=== PATIENT | male | born 1955 | race Caucasian/White ===

== ENCOUNTER 2017-02-26 10:35 | Emergency (ER) | payer OTHER ==
[2017-02-26 10:41] VITALS: TEMP 97.8
--- NOTE | 2017-02-26 11:18 | CT ---
EXAMINATION TYPE: CT brain wo con for TPA DATE OF EXAM: 02/26/2017 11:14 AM COMPARISON: NONE HISTORY: Right sided facial drooping CT DLP: 961.[address] of the brain was performed. The ventricles, basal cisterns and sulci overlying the cerebral convexities demonstrate mild enlargem ent. There is no evidence for intracranial hemorrhage or sulcal effacement. There is decreased attenuation about the periventricular white matter and deep white matter of both c erebral hemispheres, compatible with chronic small vessel ischemia. Differential diagnosis does inclu de demyelination. No mass effects are seen.No midline shift. Osseous calvarium is intact. If symptoms persist consider MRI. IMPRESSION: 1. Age related atrophic and chronic small vessel ischemic change without acute intracranial process s een at this time.
--- NOTE | 2017-02-26 11:34 | XR ---
EXAMINATION TYPE: XR chest 2V DATE OF EXAM: 02/26/2017 11:20 AM COMPARISON: 10/02/2013 HISTORY: Shortness of breath TECHNIQUE: Frontal and lateral views of the chest are obtained. FINDINGS: Scattered senescent parenchymal changes noted. Hyperinflation compatible with COPD. No evidence for infiltrate. No evidence for atelectasis. Heart size is stable. Mediastinal structures are stable and grossly unremarkable. No evidence for hilar prominence. Degenerative changes dorsal spine. IMPRESSION: 1. No evidence for acute pulmonary disease.
--- NOTE | 2017-02-26 11:37 | ED ---
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 He denies any new weakness was upper or lower extremities denies any headache blurry vision nausea vomiting or other symptoms. He had no prior history of strokes no prior history of Marquez's palsy. - Related Data Home Medications: Home Medications Medication Instructions Recorded Confirmed Albuterol Inhaler [Ventolin Hfa 1 - 2 puff INHALATION RT-QID PRN 02/26/17 Inhaler] Cetirizine HCl [Zyrtec] 10 mg PO DAILY 02/26/17 02/26/17 Cholecalciferol [Vitamin D3] 1,000 unit PO DAILY 02/26/17 02/26/17 Cyanocobalamin (Vitamin B-12) 1,000 mcg PO DAILY 02/26/17 02/26/17 [Vitamin B-12] Gabapentin [Neurontin] 300 mg PO TID 02/26/17 02/26/17 Magnesium Oxide [Mag-Ox] 250 mg PO DAILY 02/26/17 02/26/17 Metoprolol Tartrate [Metoprolol 100 mg PO BID 02/26/17 02/26/17 Tartrate] Potassium 99 mg PO DAILY 02/26/17 02/26/17 glipiZIDE [Glucotrol] 10 mg PO AC-BID 02/26/17 02/26/17 metFORMIN HCL [metFORMIN HCL ER] 750 mg PO TID 02/26/17 02/26/17 rOPINIRole HCL [Requip Xl] 2 mg PO DAILY 02/26/17 02/26/17 Previous Rx's Medication Instructions Recorded predniSONE 40 mg PO BID #14 tab 02/26/17 valACYclovir [Valtrex] 1,000 mg PO TID #21 tab 02/26/17 Allergies/Adverse Reactions: Allergies Allergy/AdvReac Type Severity Reaction Status Date / Time No Known Allergies Allergy Verified 02/26/17 11:25 Review of Systems ROS Statement: Those systems with pertinent positive or pertinent negative responses have been documented in the HPI. ROS Other: All systems not noted in ROS Statement are negative. General Exam - General Exam Comments Initial Comments: This is a well-developed well-nourished awake alert oriented 3 male he does demonstrate right facial asymmetry with forehead involvement. Limitations: no limitations General appearance: alert, in no apparent distress Head exam: Present: normocephalic, other Eye exam: Present: PERRL, EOMI, other (Some right-sided lid lag) ENT exam: Present: other (She'll asymmetry involving the forehead flattening of the right nasolabial fold) Neck exam: Present: normal inspection. Absent: tenderness, meningismus, lymphadenopathy Respiratory exam: Present: normal lung sounds bilaterally. Absent: respiratory distress, wheezes, rales, rhonchi, stridor Cardiovascular Exam: Present: regular rate GI/Abdominal exam: Present: soft, normal bowel sounds. Absent: distended, tenderness, guarding, rebound, rigid Rectal exam: Present: deferred Extremities exam: Present: normal inspection Back exam: Present: normal inspection Neurological exam: Present: alert, oriented X3. Absent: CN II-XII intact Psychiatric exam: Present: normal affect, normal mood Stroke MDM - Lab Data Result diagrams: 02/26/17 11:37 02/26/17 11:37 Lab Results 02/26/17 02/26/17 02/26/17 Range/Units 11:37 11:37 11:37 WBC 10.0 (3.8-10.6) k/uL RBC 5.25 (4.30-5.90) m/uL Hgb 15.0 (13.0-17.5) gm/dL Hct 44.7 (39.0-53.0) % MCV 85.3 (80.0-100.0) fL MCH 28.6 (25.0-35.0) pg MCHC 33.5 (31.0-37.0) g/dL RDW 13.9 (11.5-15.5) % Plt Count 307 (150-450) k/uL Neutrophils % 74 % Lymphocytes % 18 % Monocytes % 4 % Eosinophils % 2 % Basophils % 0 % Neutrophils # 7.4 (1.3-7.7) k/uL Lymphocytes # 1.8 (1.0-4.8) k/uL Monocytes # 0.4 (0-1.0) k/uL Eosinophils # 0.2 (0-0.7) k/uL Basophils # 0.0 (0-0.2) k/uL PT (9.0-12.0) sec INR (<1.1) APTT (22.0-30.0) sec Sodium 138 (137-145) mmol/L Potassium 4.2 (3.5-5.1) mmol/L Chloride 103 (98-107) mmol/L Carbon Dioxide 25 (22-30) mmol/L Anion Gap 10 mmol/L BUN 13 (9-20) mg/dL Creatinine 0.80 (0.66-1.25) mg/dL Est GFR (MDRD) Af Amer >60 (>60 ml/min/1.73 sqM) Est GFR (MDRD) Non-Af >60 (>60 ml/min/1.73 sqM) Glucose 134 H (74-99) mg/dL Calcium 9.8 (8.4-10.2) mg/dL Total Bilirubin 0.8 (0.2-1.3) mg/dL AST 16 L (17-59) U/L ALT 28 (21-72) U/L Alkaline Phosphatase 47 (38-126) U/L Total Creatine Kinase 108 (55-170) U/L CK-MB (CK-2) 2.2 (0.0-2.4) ng/mL CK-MB (CK-2) Rel Index 2.0 Troponin I <0.012 (0.000-0.034) ng/mL Total Protein 7.2 (6.3-8.2) g/dL Albumin 4.3 (3.5-5.0) g/dL 02/26/17 Range/Units 11:37 WBC (3.8-10.6) k/uL RBC (4.30-5.90) m/uL Hgb (13.0-17.5) gm/dL Hct (39.0-53.0) % MCV (80.0-100.0) fL MCH (25.0-35.0) pg MCHC (31.0-37.0) g/dL RDW (11.5-15.5) % Plt Count (150-450) k/uL Neutrophils % % Lymphocytes % % Monocytes % % Eosinophils % % Basophils % % Neutrophils # (1.3-7.7) k/uL Lymphocytes # (1.0-4.8) k/uL Monocytes # (0-1.0) k/uL Eosinophils # (0-0.7) k/uL Basophils # (0-0.2) k/uL PT 10.6 (9.0-12.0) sec INR 1.1 (<1.1) APTT 23.2 (22.0-30.0) sec Sodium (137-145) mmol/L Potassium (3.5-5.1) mmol/L Chloride (98-107) mmol/L Carbon Dioxide (22-30) mmol/L Anion Gap mmol/L BUN (9-20) mg/dL Creatinine (0.66-1.25) mg/dL Est GFR (MDRD) Af Amer (>60 ml/min/1.73 sqM) Est GFR (MDRD) Non-Af (>60 ml/min/1.73 sqM) Glucose (74-99) mg/dL Calcium (8.4-10.2) mg/dL Total Bilirubin (0.2-1.3) mg/dL AST (17-59) U/L ALT (21-72) U/L Alkaline Phosphatase (38-126) U/L Total Creatine Kinase (55-170) U/L CK-MB (CK-2) (0.0-2.4) ng/mL CK-MB (CK-2) Rel Index Troponin I (0.000-0.034) ng/mL Total Protein (6.3-8.2) g/dL Albumin (3.5-5.0) g/dL - NIH Stroke Scale 1a. Level of Consciousness: (0) alert 1b. LOC Questions: (0) answers correctly 1c. LOC Commands: (0) performs tasks correctly 2. Best Gaze: (0) normal 3. Visual: (0) no visual loss 4. Facial Palsy: (2) partial paralysis 5a. Motor Arm Left: (0) no drift 5b. Motor Arm Right: (0) no drift 6a. Motor Leg Left: (0) no drift 6b. Motor Leg Right: (0) no drift 7. Limb Ataxia: (0) absent 8. Sensory: (0) normal 9. Best Language: (0) no aphasia 10. Dysarthria: (0) normal 11. Extinction/Inattention: (0) no abnormality - Thrombolytic Inclusion/Exclusion Thrombolytic Inclusion Criteria: Negative CT Scan for ICH - Medical Decision Making Patient the patient presents with evidence of Marquez's palsy no evidence of any stroke. He does have erbs palsy on the right patient will be discharged on appropriate medication. Past Medical History Past Medical History: Asthma, Coronary Artery Disease (CAD), Diabetes Mellitus, Hyperlipidemia, Hypertension History of Any Multi-Drug Resistant Organisms: None Reported Past Surgical History: Heart Catheterization With Stent Past Psychological History: Depression Smoking Status: Never smoker Past Alcohol Use History: None Reported Past Drug Use History: None Reported Course Vital Signs 02/26/17 10:36 Temperature 97.8 F Pulse Rate 62 Respiratory 16 Rate Blood Pressure 184/84 O2 Sat by Pulse 99 Oximetry Disposition Clinical Impression: Marquez's palsy Disposition: HOME SELF-CARE Condition: Good Instructions: Marquez Palsy (ED) Prescriptions: predniSONE 40 mg PO BID #14 tab valACYclovir [Valtrex] 1,000 mg PO TID #21 tab
[2017-02-26 11:51] LABS: Basophils % (A) 0 %; CH 29.2; CHCM 34.4; Eosinophils # (A) 0.2 k/uL (0-0.7); Eosinophils % (A) 2 %; HCT 44.7 % (39.0-53.0); HDW 2.82; Luc # (Auto) 0.15; Luc % (Auto) 2; Lymphocytes # (A) 1.8 k/uL (1.0-4.8); Lymphocytes % (A) 18 %; MCH 28.6 pg (25.0-35.0); MCHC 33.5 g/dL (31.0-37.0); MCV 85.3 fL (80.0-100.0); Mean Platelet Volume 6.2; Monocytes # (A) 0.4 k/uL (0-1.0); Monocytes % (A) 4 %; Neutrophils # (A) 7.4 k/uL (1.3-7.7); Neutrophils % (A) 74 %; RBC 5.25 m/uL (4.30-5.90); RDW 13.9 % (11.5-15.5); WBC (Perox) 9.64
[2017-02-26 12:00] LABS: INR 1.1 (<1.1); Partial Thromboplastin Time 23.2 sec (22.0-30.0); Prothrombin Time 10.6 sec (9.0-12.0)
[2017-02-26 12:01] LABS: ALT 28 U/L (21-72); AST 16 U/L (17-59); Alkaline Phosphatase 47 U/L (38-126); Anion Gap 10 mmol/L; Blood Urea Nitrogen 13 mg/dL (9-20); Calcium 9.8 mg/dL (8.4-10.2); Carbon Dioxide 25 mmol/L (22-30); Chloride 103 mmol/L (98-107); Glucose 134 mg/dL (74-99); Non-African American GFR(MDRD) >60 (>60 ml/min/1.73 sqM); Potassium 4.2 mmol/L (3.5-5.1); Sodium 138 mmol/L (137-145); Total Bilirubin 0.8 mg/dL (0.2-1.3); Total Protein 7.2 g/dL (6.3-8.2)
[2017-02-26 12:13] LABS: Creatine Kinase 108 U/L (55-170)
[2017-02-26 12:26] LABS: Creatine Kinase MB 2.2 ng/mL (0.0-2.4); Troponin I <0.012 ng/mL (0.000-0.034)
[2017-02-26] MEDS ORDERED: predniSONE 50 MG TAB PO STA (13:15)
[2017-02-26 14:16] VITALS: BP 144/94; PULSE 85; RESP 18
== END 2017-02-26 14:16 | disposition home or self-care (01) ==
LOC: EC 10:35
DX: G51.0 Bell's palsy (principal); E11.9 Type 2 diabetes mellitus without complications; E78.5 Hyperlipidemia, unspecified; I10 Essential (primary) hypertension; F32.9 Major depressive disorder, single episode, unspecified; Z79.84 Long term (current) use of oral hypoglycemic drugs; Z79.899 Other long term (current) drug therapy
CPT/HCPCS: 99284; 36415; 93005; 80053; 82550; 82553; 84484; 85025; 85610; 85730; 71020; 70450; J7512

== ENCOUNTER 2019-10-31 11:51 | Observation (INO) | payer OTHER ==
[2019-10-31] MEDS ORDERED: PANTOPRAZOLE 40 MG/10 ML VIAL IVP STA (12:27)
[2019-10-31] MEDS ORDERED: SODIUM CHLORIDE 0.9% 1,000 ML IV STA (12:27)
[2019-10-31] MEDS ORDERED: HYDROmorphone 1 MG/ML 1 ML SYRINGE IVP STA (12:27)
[2019-10-31] MEDS ORDERED: diphenhydrAMINE 50 MG/ML 1 ML VIAL IVP STA (12:29)
[2019-10-31] MEDS ORDERED: FAMOTIDINE 20 MG/2 ML VIAL IV STA (12:29)
[2019-10-31] MEDS ORDERED: methylPREDNISolone SOD SUCCI 125 MG/2 ML VIAL IV STA (12:29)
[2019-10-31] MEDS ORDERED: BARIUM SULFATE 450 ML ORAL.SUSP BOTTLE PO PRN (12:30)
--- NOTE | 2019-10-31 12:34 | ED ---
General Adult HPI - General Chief complaint: Abdominal Pain Stated complaint: Abd.pain Time Seen by Provider: 10/31/19 12:10 Source: patient, RN notes reviewed Mode of arrival: ambulatory Limitations: no limitations - History of Present Illness Initial comments: Patient is a pleasant 64-year-old male presenting to the emergency department with abdominal discomfort. Symptoms have been occurring for close to a month. Patient did have diarrhea for one to 2 weeks however that has resolved. Patient still has discomfort on the right side. Patient feels his abdomen is somewhat more distended on the right side. No fevers. No nausea or vomiting. No history of similar symptoms previously. Patient was at [facility] for several days. Part of the reason he was there was also to control his blood sugar however. Patient believes he saw a surgeon there, however is unclear who - Related Data Home Medications Medication Instructions Recorded Confirmed rOPINIRole HCL [Requip Xl] 2 mg PO HS 02/26/17 10/31/19 Atorvastatin Calcium [Lipitor] 80 mg PO HS 10/31/19 10/31/19 Metoprolol Tartrate [Lopressor] 100 mg PO BID 10/31/19 10/31/19 Pregabalin [Lyrica] 75 mg PO BID 10/31/19 10/31/19 metFORMIN HCL 1,000 mg PO BID 10/31/19 10/31/19 rOPINIRole HCL [Requip] 2 mg PO QAM 10/31/19 10/31/19 Allergies Allergy/AdvReac Type Severity Reaction Status Date / Time Iodinated Contrast Media AdvReac Unknown Verified 10/31/19 13:37 Review of Systems ROS Statement: Those systems with pertinent positive or pertinent negative responses have been documented in the HPI. ROS Other: All systems not noted in ROS Statement are negative. Constitutional: Denies: fever Eyes: Denies: eye pain ENT: Denies: ear pain Respiratory: Denies: cough Cardiovascular: Denies: chest pain Endocrine: Denies: fatigue Gastrointestinal: Reports: as per HPI, abdominal pain Genitourinary: Denies: dysuria Musculoskeletal: Denies: back pain Skin: Denies: rash Neurological: Denies: weakness Past Medical History Past Medical History: Asthma, Coronary Artery Disease (CAD), Diabetes Mellitus, Hyperlipidemia, Hypertension History of Any Multi-Drug Resistant Organisms: None Reported Past Surgical History: Heart Catheterization With Stent Past Psychological History: Depression, PTSD Smoking Status: Never smoker Past Alcohol Use History: None Reported Past Drug Use History: None Reported General Exam Limitations: no limitations General appearance: alert, in no apparent distress Head exam: Present: normocephalic Eye exam: Present: normal appearance, PERRL ENT exam: Present: normal oropharynx Neck exam: Present: normal inspection Respiratory exam: Present: normal lung sounds bilaterally Cardiovascular Exam: Present: regular rate, normal rhythm Expanded Peripheral pulses: 2+: Dorsalis Pedis (R), Dorsalis Pedis (L) GI/Abdominal exam: Present: soft, tenderness (Moderate right lower quadrant tenderness), pulsatile mass, other (The abdomen on the right does seem slightly more large than the left. There does seem appearance of a reducible hernia underneath.). Absent: guarding, rebound, rigid Extremities exam: Present: normal inspection. Absent: pedal edema, calf tenderness Neurological exam: Present: alert Psychiatric exam: Present: normal affect, normal mood Skin exam: Present: normal color Course Vital Signs 10/31/19 10/31/19 12:04 13:13 Temperature 98.0 F Pulse Rate 62 Respiratory 20 16 Rate Blood Pressure 159/73 O2 Sat by Pulse 100 Oximetry Medical Decision Making - Medical Decision Making Patient reevaluated and only somewhat better. Patient updated on results. Case was discussed with Dr. Amin, who will admit for surgical site coverage for Dr. martel - Lab Data Result diagrams: 10/31/19 13:00 10/31/19 13:00 Lab Results 10/31/19 10/31/19 10/31/19 Range/Units 13:00 13:00 13:00 WBC 9.6 (3.8-10.6) k/uL RBC 5.48 (4.30-5.90) m/uL Hgb 16.2 (13.0-17.5) gm/dL Hct 47.2 (39.0-53.0) % MCV 86.1 (80.0-100.0) fL MCH 29.6 (25.0-35.0) pg MCHC 34.4 (31.0-37.0) g/dL RDW 13.4 (11.5-15.5) % Plt Count 362 (150-450) k/uL Neutrophils % 74 % Lymphocytes % 15 % Monocytes % 5 % Eosinophils % 2 % Basophils % 2 % Neutrophils # 7.1 (1.3-7.7) k/uL Lymphocytes # 1.4 (1.0-4.8) k/uL Monocytes # 0.5 (0-1.0) k/uL Eosinophils # 0.2 (0-0.7) k/uL Basophils # 0.2 (0-0.2) k/uL PT 10.3 (9.0-12.0) sec INR 1.0 (<1.2) APTT 22.2 (22.0-30.0) sec Sodium 138 (137-145) mmol/L Potassium 4.6 (3.5-5.1) mmol/L Chloride 103 (98-107) mmol/L Carbon Dioxide 20 L (22-30) mmol/L Anion Gap 15 mmol/L BUN 22 H (9-20) mg/dL Creatinine 0.71 (0.66-1.25) mg/dL Est GFR (CKD-EPI)AfAm >90 (>60 ml/min/1.73 sqM) Est GFR (CKD-EPI)NonAf >90 (>60 ml/min/1.73 sqM) Glucose 242 H (74-99) mg/dL Calcium 10.0 (8.4-10.2) mg/dL Total Bilirubin 0.8 (0.2-1.3) mg/dL AST 29 (17-59) U/L ALT 32 (4-49) U/L Alkaline Phosphatase 60 (38-126) U/L Total Protein 7.7 (6.3-8.2) g/dL Albumin 4.7 (3.5-5.0) g/dL Amylase 46 (30-110) U/L Lipase 206 (23-300) U/L - Radiology Data Radiology results: report reviewed (T scan of the abdomen and pelvis reveals no acute process) Disposition Clinical Impression: Ileus Disposition: ADMITTED IP TO THIS HOSP Is patient prescribed a controlled substance at d/c from ED?: No Referrals: Logan Hernandes MD [Primary Care Provider] - 1-2 days Decision Time: 15:11
[2019-10-31 13:23] LABS: Basophils # (A) 0.2 k/uL (0-0.2); Basophils % (A) 2 %; Eosinophils # (A) 0.2 k/uL (0-0.7); Eosinophils % (A) 2 %; HCT 47.2 % (39.0-53.0); HGB 16.2 gm/dL (13.0-17.5); Lymphocytes # (A) 1.4 k/uL (1.0-4.8); Lymphocytes % (A) 15 %; MCH 29.6 pg (25.0-35.0); MCHC 34.4 g/dL (31.0-37.0); MCV 86.1 fL (80.0-100.0); Mean Platelet Volume 7.3; Monocytes # (A) 0.5 k/uL (0-1.0); Monocytes % (A) 5 %; Neutrophils # (A) 7.1 k/uL (1.3-7.7); Neutrophils % (A) 74 %; Platelet Count 362 k/uL (150-450); RBC 5.48 m/uL (4.30-5.90); RDW 13.4 % (11.5-15.5); WBC 9.6 k/uL (3.8-10.6)
[2019-10-31 13:34] LABS: ALT 32 U/L (4-49); AST 29 U/L (17-59); African American GFR (CKD) >90 (>60 ml/min/1.73 sqM); Albumin 4.7 g/dL (3.5-5.0); Alkaline Phosphatase 60 U/L (38-126); Amylase 46 U/L (30-110); Anion Gap 15 mmol/L; Blood Urea Nitrogen 22 mg/dL (9-20); Carbon Dioxide 20 mmol/L (22-30); Chloride 103 mmol/L (98-107); Glucose 242 mg/dL (74-99); Non-African American GFR(CKD) >90 (>60 ml/min/1.73 sqM); Potassium 4.6 mmol/L (3.5-5.1); Sodium 138 mmol/L (137-145); Total Bilirubin 0.8 mg/dL (0.2-1.3); Total Protein 7.7 g/dL (6.3-8.2)
[2019-10-31 13:40] LABS: Partial Thromboplastin Time 22.2 sec (22.0-30.0); Prothrombin Time 10.3 sec (9.0-12.0)
--- NOTE | 2019-10-31 14:35 | CT ---
EXAMINATION TYPE: CT abdomen pelvis w con DATE OF EXAM: 10/31/2019 COMPARISON: None. HISTORY: Abdominal pain CT DLP: 2331.4 mGycm, Automated Exposure Control for Dose Reduction was Utilized. CONTRAST: CT scan of the abdomen and pelvis is performed with oral and with IV Contrast, patient injected with 100 ml mL of Isovue 300. FINDINGS: LUNG BASES: Few small scattered calcified nodules or granulomas bilaterally. Dependent atelectasis fuentes th bases. LIVER/GB: Liver is diffusely low dense consistent with fatty infiltration. PANCREAS: No significant abnormality is seen. SPLEEN: No significant abnormality is seen. ADRENALS: No significant abnormality is seen. KIDNEYS: Slight prominence of surrounding retroperitoneal fat with mass effect on bowel loops displac ed anteriorly. Symmetric cortical medullary uptake and excretion without hydronephrosis. 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 BOWEL: Oral contrast only reaches distal jejunal level in the left pelvis. No suspicious small or lar ge bowel dilatation is seen however. PROSTATE/SEMINAL VESICLES: Normal size prostate with adjacent scattered pelvic phleboliths. LYMPH NODES: No greater than 1cm abdominal or pelvic lymph nodes are appreciated. OSSEOUS STRUCTURES: Moderate multilevel disc space narrowing and vacuum disc phenomenon in the thorac olumbar spine. Moderate multilevel spurring in the spine. Moderate narrowing of both hip joints. Spur disc complex effaces the anterior thecal sac at L2-L3 level sagittal image 74. Facet arthropathy low er lumbar levels. OTHER: Mild/moderate calcified plaque of the aorta extends into branch vessels. IMPRESSION: No significant acute finding is seen to account for patient's clinical symptoms.
[2019-10-31] MEDS ORDERED: NALOXONE 0.4 MG/ML 1 ML VIAL IV PRN (15:11)
[2019-10-31 16:38] LABS: Glucose,Whole Blood 281 mg/dL (75-99)
[2019-10-31] MEDS: SODIUM CHLORIDE 0.9% 1,000 ML IV SCH (19:46)
[2019-10-31] MEDS: HYDROmorphone 1 MG/ML 1 ML SYRINGE IVP PRN (19:55)
[2019-10-31 20:23] LABS: Glucose,Whole Blood 322 mg/dL (75-99)
[2019-11-01 01:44] LABS: Glucose,Whole Blood 340 mg/dL (75-99)
[2019-11-01] MEDS: METOPROLOL TARTRATE 50 MG TAB PO SCH ×2 (01:49→07:44)
[2019-11-01] MEDS: HYDROmorphone 1 MG/ML 1 ML SYRINGE IVP PRN (01:50)
[2019-11-01] MEDS: PREGABALIN 75 MG CAP PO SCH ×2 (01:50→07:45)
[2019-11-01] MEDS: INSULIN ASPART (NovoLOG) 100 UNIT/ML VIAL SQ SCH ×3 (01:51→11:59)
[2019-11-01] MEDS: SODIUM CHLORIDE 0.9% 1,000 ML IV SCH ×2 (05:15→07:34)
[2019-11-01 06:00] LABS: Appearance,Urine Clear (Clear); Bilirubin,Urine Negative (Negative); Blood,Urine Negative (Negative); Color,Urine Yellow; Glucose,Urine (UA) 4+ (Negative); Leukocyte Esterase,Urine Negative (Negative); Nitrite,Urine Negative (Negative); Protein,Urine Negative (Negative); Specific Gravity,Urine 1.029 (1.001-1.035); Urobilinogen,Urine <2.0 mg/dL (<2.0)
[2019-11-01 06:04] LABS: Ketones,Urine 2+ (Negative)
[2019-11-01 06:40] LABS: Glucose,Whole Blood 285 mg/dL (75-99)
[2019-11-01 07:29] LABS: Basophils % (A) 0 %; Eosinophils # (A) 0.1 k/uL (0-0.7); Eosinophils % (A) 1 %; HCT 43.7 % (39.0-53.0); HGB 14.6 gm/dL (13.0-17.5); Lymphocytes # (A) 0.6 k/uL (1.0-4.8); Lymphocytes % (A) 8 %; MCH 29.5 pg (25.0-35.0); MCHC 33.5 g/dL (31.0-37.0); Mean Platelet Volume 6.9; Monocytes # (A) 0.3 k/uL (0-1.0); Monocytes % (A) 4 %; Neutrophils # (A) 6.6 k/uL (1.3-7.7); Neutrophils % (A) 86 %; Platelet Count 328 k/uL (150-450); RBC 4.96 m/uL (4.30-5.90); RDW 13.5 % (11.5-15.5); WBC 7.6 k/uL (3.8-10.6)
[2019-11-01 07:31] LABS: Glucose,Whole Blood 267 mg/dL (75-99)
[2019-11-01 07:54] LABS: ALT 26 U/L (4-49); AST 18 U/L (17-59); African American GFR (CKD) >90 (>60 ml/min/1.73 sqM); Albumin 3.9 g/dL (3.5-5.0); Alkaline Phosphatase 46 U/L (38-126); Anion Gap 9 mmol/L; Blood Urea Nitrogen 19 mg/dL (9-20); Calcium 9.1 mg/dL (8.4-10.2); Carbon Dioxide 24 mmol/L (22-30); Chloride 104 mmol/L (98-107); Glucose 278 mg/dL (74-99); Non-African American GFR(CKD) >90 (>60 ml/min/1.73 sqM); Sodium 137 mmol/L (137-145); Total Bilirubin 0.7 mg/dL (0.2-1.3); Total Protein 6.6 g/dL (6.3-8.2)
[2019-11-01 08:34] VITALS: BP 145/70; PULSE 61; RESP 16; TEMP 97.7
[2019-11-01] MEDS ORDERED: PANTOPRAZOLE 40 MG/10 ML VIAL IV SCH (09:00)
[2019-11-01 11:41] LABS: Glucose,Whole Blood 273 mg/dL (75-99)
[2019-11-01] MEDS ORDERED: KETOROLAC 30 MG/ML 1 ML VIAL IVP SCH (12:00)
--- NOTE | 2019-11-01 13:15 | P.CONS ---
History of Present Illness - Reason for Consult recommendations regarding diabetic medications - History of Present Illness patient is 59-year-old male admitted for right upper quadrant abdominal pain patient was admitted to general surgery service. Patient appears to have lipoma patient is admitted for ileus although ileus is not evident clinically are on the CAT scan. Patient does have chronic low back pain and is comparing pain from chronic low back pain without any weakness or any radicular sympto ms.patient denied any fever chills nausea vomiting diarrhea. Patient says his pain is 10 x 10 sharp in the right lower quadrant Review of Systems REVIEW OF SYSTEMS: CONSTITUTIONAL: No fever, no malaise, no fatigue. HEENT: No recent visual problems or hearing problems. Denied any sore throat. CARDIOVASCULAR: No chest pain, orthopnea, PND, no palpitations, no syncope. PULMONARY: No shortness of breath, no cough, no hemoptysis. GASTROINTESTINAL: No diarrhea, no nausea, no vomiting, NEUROLOGICAL: No headaches, no weakness, no numbness. HEMATOLOGICAL: Denies any bleeding or petechiae. GENITOURINARY: Denies any burning micturition, frequency, or urgency. MUSCULOSKELETAL/RHEUMATOLOGICAL: Denies any joint pain, swelling, or any muscle pain. ENDOCRINE: Denies any polyuria or polydipsia. The rest of the 14-point review of systems is negative. Past Medical History Past Medical History: Asthma, Coronary Artery Disease (CAD), Diabetes Mellitus, Hyperlipidemia, Hypertension History of Any Multi-Drug Resistant Organisms: None Reported Past Surgical History: Heart Catheterization With Stent Smoking Status: Former smoker Medications and Allergies Home Medications Medication Instructions Recorded Confirmed Type rOPINIRole HCL [Requip Xl] 2 mg PO HS 02/26/17 10/31/19 History Atorvastatin Calcium [Lipitor] 80 mg PO HS 10/31/19 10/31/19 History Metoprolol Tartrate [Lopressor] 100 mg PO BID 10/31/19 10/31/19 History Pregabalin [Lyrica] 75 mg PO BID 10/31/19 10/31/19 History metFORMIN HCL 1,000 mg PO BID 10/31/19 10/31/19 History rOPINIRole HCL [Requip] 2 mg PO QAM 10/31/19 10/31/19 History traMADol HCL [Ultram] 50 mg PO Q4HR PRN 3 Days #18 tab 11/01/19 Rx Allergies Allergy/AdvReac Type Severity Reaction Status Date / Time Iodinated Contrast Media AdvReac Unknown Verified 10/31/19 13:37 Physical Exam Vitals: Vital Signs Temp Pulse Pulse Pulse Resp BP BP 11/01/19 07:22 97.7 F 61 16 145/70 11/01/19 01:55 97.9 F 83 18 156/93 10/31/19 16:10 97.5 F L 66 18 152/76 10/31/19 16:00 66 18 10/31/19 15:00 98.1 F 70 16 151/83 10/31/19 13:13 16 Pulse Ox 11/01/19 07:22 98 11/01/19 01:55 98 10/31/19 16:10 98 10/31/19 16:00 10/31/19 15:00 97 10/31/19 13:13 Intake and Output 10/31/19 11/01/19 11/01/19 22:59 06:59 14:59 Other: Voiding Method Toilet Toilet Toilet Weight 105.778 kg PHYSICAL EXAMINATION: GENERAL: The patient is alert and oriented x3, not in any acute distress. Well developed, well nourished. HEENT: Pupils are round and equally reacting to light. EOMI. No scleral icterus. No conjunctival pallor. Normocephalic, atraumatic. No pharyngeal erythema. No thyromegaly. CARDIOVASCULAR: S1 and S2 present. No murmurs, rubs, or gallops. PULMONARY: Chest is clear to auscultation, no wheezing or crackles. ABDOMEN: Soft, there is a big lipoma and some subjective tenderness in the right lower quadrant, nondistended, normoactive bowel sounds. No palpable organomegaly. MUSCULOSKELETAL: No joint swelling or deformity. EXTREMITIES: No cyanosis, clubbing, or pedal edema. NEUROLOGICAL: Gross neurological examination did not reveal any focal deficits. SKIN: No rashes. Results CBC & Chem 7: 11/01/19 07:09 11/01/19 07:09 Labs: Abnormal Lab Results - Last 24 Hours (Table) 10/31/19 10/31/19 10/31/19 Range/Units 13:00 16:27 20:21 Lymphocytes # (1.0-4.8) k/uL Carbon Dioxide 20 L (22-30) mmol/L BUN 22 H (9-20) mg/dL Glucose 242 H (74-99) mg/dL POC Glucose (mg/dL) 281 H 322 H (75-99) mg/dL Urine Glucose (UA) (Negative) Urine Ketones (Negative) 11/01/19 11/01/19 11/01/19 Range/Units 01:14 05:45 06:35 Lymphocytes # (1.0-4.8) k/uL Carbon Dioxide (22-30) mmol/L BUN (9-20) mg/dL Glucose (74-99) mg/dL POC Glucose (mg/dL) 340 H 285 H (75-99) mg/dL Urine Glucose (UA) 4+ H (Negative) Urine Ketones 2+ H (Negative) 11/01/19 11/01/19 11/01/19 Range/Units 07:09 07:09 07:29 Lymphocytes # 0.6 L (1.0-4.8) k/uL Carbon Dioxide (22-30) mmol/L BUN (9-20) mg/dL Glucose 278 H (74-99) mg/dL POC Glucose (mg/dL) 267 H (75-99) mg/dL Urine Glucose (UA) (Negative) Urine Ketones (Negative) 11/01/19 Range/Units 11:38 Lymphocytes # (1.0-4.8) k/uL Carbon Dioxide (22-30) mmol/L BUN (9-20) mg/dL Glucose (74-99) mg/dL POC Glucose (mg/dL) 273 H (75-99) mg/dL Urine Glucose (UA) (Negative) Urine Ketones (Negative) Assessment and Plan Plan: -type 2 diabetes mellitus: Patient on metformin when he is here patient will be on sliding scale insulin hold off on metformin -Right lower quadrant abdominal pain etiology is not clear patient was evaluated extensively in the past. Patient has a lipoma in the right lower quadrant this is probably not Contributing to his pain further management of this as per primary service of general surgery. -Chronic low back pain patient will be discharged on anti-inflammatory medications for this -Hypertension --Hyperlipidemia -Coronary artery disease For above-mentioned chronic medical problems patient will be resumed and continued on appropriate home medications.
--- NOTE | 2019-11-01 14:00 | P.GSHP ---
History of Present Illness H&P Date: 11/01/19 THIS DOCUMENT SERVES H&P AND DISCHARGE SUMMARY CHIEF COMPLAINT: abdominal pain HISTORY OF PRESENT ILLNESS: 64-year-old male who presented to the emergency room the chief complaint of abdominal pain. Patient states he was recently hospi talized at [facility] due to abdominal pain. He reports he underwent multiple tests including ultrasounds and CAT scans. He states all his results were normal and he was discharged home. He reports colonoscopy approximately 5 years ago and states it was normal. Patient reports he has been having abdominal pain mostly in the right upper and lower quadrant. He has been tolerating diet. Denies nausea or vomiting. He reports passing flatus and having normal bowel movements. Since his last bowel movement was yesterday. PAST MEDICAL HISTORY: See list. PAST SURGICAL HISTORY: See list. SOCIAL HISTORY: No illicit drug use. REVIEW OF SYSTEMS: CONSTITUTIONAL: Denies fever or chills. HEENT: Denies blurred vision, vision changes, or eye pain. Denies hemoptysis CARDIOVASCULAR: Denies chest pain or pressure. RESPIRATORY: No shortness of breath. GASTROINTESTINAL: Refer to HPI for pertinent findings HEMATOLOGIC: Denies bleeding disorders. GENITOURINARY: Denies any blood in urine. SKIN: Denies pruitis. Denies rash. PHYSICAL EXAM: VITAL SIGNS: Reviewed. GENERAL: Well-developed in no acute distress. HEENT: No sclera icterus. Extraocular movements grossly intact. Moist buccal mucosa. Head is atraumatic, normocephalic. ABDOMEN: Soft. Nondistended. Some fullness in right side of abdomen. Mild tenderness with palpation. NEUROLOGIC: Alert and oriented. Cranial nerves II through XII grossly intact. LABORATORY DATA: CBC and CMP within normal limits IMAGING: CT abdomen pelvis: Slight prominence of surrounding her to peritoneal fat with mass effect and bowel loops displacing them anteriorly. 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 No suspicious small or large bowel dilation is seen. ASSESSMENT: 1. Abdominal pain PLAN: Patient examined by Dr. Amin, who also reviewed CT scan. No acute findings to account for patients pain. Patient is tolerating diet and having bowel movements. Patient may be discharged home today per Dr. Amin. He is to follow up with his PCP. Nurse practitioner note has been reviewed by physician. Signing provider agrees with the documented findings, assessment, and plan of care. Past Medical History Past Medical History: Asthma, Coronary Artery Disease (CAD), Diabetes Mellitus, Hyperlipidemia, Hypertension History of Any Multi-Drug Resistant Organisms: None Reported Past Surgical History: Heart Catheterization With Stent Smoking Status: Former smoker Medications and Allergies Home Medications Medication Instructions Recorded Confirmed Type rOPINIRole HCL [Requip Xl] 2 mg PO HS 02/26/17 10/31/19 History Atorvastatin Calcium [Lipitor] 80 mg PO HS 10/31/19 10/31/19 History Metoprolol Tartrate [Lopressor] 100 mg PO BID 10/31/19 10/31/19 History Pregabalin [Lyrica] 75 mg PO BID 10/31/19 10/31/19 History metFORMIN HCL 1,000 mg PO BID 10/31/19 10/31/19 History rOPINIRole HCL [Requip] 2 mg PO QAM 10/31/19 10/31/19 History traMADol HCL [Ultram] 50 mg PO Q4HR PRN 3 Days #18 tab 11/01/19 Rx Allergies Allergy/AdvReac Type Severity Reaction Status Date / Time Iodinated Contrast Media AdvReac Unknown Verified 10/31/19 13:37 Surgical - Exam Vital Signs Temp Pulse Resp BP Pulse Ox 98.0 F 62 20 159/73 100 10/31/19 12:04 10/31/19 12:04 10/31/19 12:04 10/31/19 12:04 10/31/19 12:04 Results - Labs 11/01/19 07:09 11/01/19 07:09 Abnormal Lab Results - Last 24 Hours (Table) 10/31/19 10/31/19 11/01/19 Range/Units 16:27 20:21 01:14 Lymphocytes # (1.0-4.8) k/uL Glucose (74-99) mg/dL POC Glucose (mg/dL) 281 H 322 H 340 H (75-99) mg/dL Urine Glucose (UA) (Negative) Urine Ketones (Negative) 11/01/19 11/01/19 11/01/19 Range/Units 05:45 06:35 07:09 Lymphocytes # 0.6 L (1.0-4.8) k/uL Glucose (74-99) mg/dL POC Glucose (mg/dL) 285 H (75-99) mg/dL Urine Glucose (UA) 4+ H (Negative) Urine Ketones 2+ H (Negative) 11/01/19 11/01/19 11/01/19 Range/Units 07:09 07:29 11:38 Lymphocytes # (1.0-4.8) k/uL Glucose 278 H (74-99) mg/dL POC Glucose (mg/dL) 267 H 273 H (75-99) mg/dL Urine Glucose (UA) (Negative) Urine Ketones (Negative) Diabetes panel 11/01/19 Range/Units 07:09 Sodium 137 (137-145) mmol/L Potassium 5.0 (3.5-5.1) mmol/L Chloride 104 (98-107) mmol/L Carbon Dioxide 24 (22-30) mmol/L BUN 19 (9-20) mg/dL Creatinine 0.72 (0.66-1.25) mg/dL Glucose 278 H (74-99) mg/dL Calcium 9.1 (8.4-10.2) mg/dL AST 18 (17-59) U/L ALT 26 (4-49) U/L Alkaline Phosphatase 46 (38-126) U/L Total Protein 6.6 (6.3-8.2) g/dL Albumin 3.9 (3.5-5.0) g/dL Calcium panel 11/01/19 Range/Units 07:09 Calcium 9.1 (8.4-10.2) mg/dL Albumin 3.9 (3.5-5.0) g/dL Pituitary panel 11/01/19 Range/Units 07:09 Sodium 137 (137-145) mmol/L Potassium 5.0 (3.5-5.1) mmol/L Chloride 104 (98-107) mmol/L Carbon Dioxide 24 (22-30) mmol/L BUN 19 (9-20) mg/dL Creatinine 0.72 (0.66-1.25) mg/dL Glucose 278 H (74-99) mg/dL Calcium 9.1 (8.4-10.2) mg/dL Adrenal panel 11/01/19 Range/Units 07:09 Sodium 137 (137-145) mmol/L Potassium 5.0 (3.5-5.1) mmol/L Chloride 104 (98-107) mmol/L Carbon Dioxide 24 (22-30) mmol/L BUN 19 (9-20) mg/dL Creatinine 0.72 (0.66-1.25) mg/dL Glucose 278 H (74-99) mg/dL Calcium 9.1 (8.4-10.2) mg/dL Total Bilirubin 0.7 (0.2-1.3) mg/dL AST 18 (17-59) U/L ALT 26 (4-49) U/L Alkaline Phosphatase 46 (38-126) U/L Total Protein 6.6 (6.3-8.2) g/dL Albumin 3.9 (3.5-5.0) g/dL
== END 2019-11-01 14:30 | disposition home or self-care (01) ==
LOC: EC 11:51 → 4SSUR 15:11
PROVIDERS: ADMIT Surgery; ATTEND Surgery
DX: K56.7 Ileus, unspecified (principal); J45.909 Unspecified asthma, uncomplicated; I25.10 Atherosclerotic heart disease of native coronary artery without angina pectoris; E11.9 Type 2 diabetes mellitus without complications; I10 Essential (primary) hypertension; E78.5 Hyperlipidemia, unspecified; F32.9 Major depressive disorder, single episode, unspecified; F43.10 Post-traumatic stress disorder, unspecified; G89.29 Other chronic pain; M54.5 Low back pain; Z95.5 Presence of coronary angioplasty implant and graft; Z79.84 Long term (current) use of oral hypoglycemic drugs; Z79.899 Other long term (current) drug therapy; Z91.041 Radiographic dye allergy status; Z79.891 Long term (current) use of opiate analgesic
CPT/HCPCS: 96376; 96375 ×2; 96361; 96374; 99285; 36415; 80053 ×2; 82150; 83690; 85025 ×2; 85610; 85730; 81003; 74177; G0378 ×2; J1200; J2930; J1885; J1170 ×2; C9113; Q9967

== ENCOUNTER → 2020-05-12 | Outpatient (CLI) | payer OTHER ==
[2020-05-12 12:35] LABS: Basophils # (A) 0.1 k/uL (0-0.2); Basophils % (A) 1 %; Eosinophils # (A) 0.1 k/uL (0-0.7); Eosinophils % (A) 1 %; HCT 44.7 % (39.0-53.0); HGB 14.6 gm/dL (13.0-17.5); Lymphocytes # (A) 1.6 k/uL (1.0-4.8); Lymphocytes % (A) 16 %; MCH 28.1 pg (25.0-35.0); MCHC 32.7 g/dL (31.0-37.0); MCV 86.1 fL (80.0-100.0); Monocytes # (A) 0.5 k/uL (0-1.0); Monocytes % (A) 5 %; Neutrophils # (A) 7.4 k/uL (1.3-7.7); Neutrophils % (A) 76 %; Platelet Count 290 k/uL (150-450); RBC 5.19 m/uL (4.30-5.90); RDW 13.7 % (11.5-15.5); WBC 9.7 k/uL (3.8-10.6)
== END | disposition home or self-care (01) ==
LOC: LABWHC1 10:50
PROVIDERS: ATTEND Radiology Radiation Oncology
DX: R19.00 Intra-abdominal and pelvic swelling, mass and lump, unspecified site (principal)
CPT/HCPCS: 85025; 36415; U0003; C9803

== ENCOUNTER 2021-02-04 08:45 | Inpatient (IN) | payer MEDICARE, OTHER ==
[2021-02-04] MEDS ORDERED: SODIUM CHLORIDE 0.9% 1,000 ML IV ONE (09:00)
[2021-02-04 09:07] LABS: Glucose,Whole Blood 310 mg/dL (75-99)
[2021-02-04] MEDS ORDERED: ASPIRIN 325 MG TAB ONE (09:20)
[2021-02-04] MEDS ORDERED: ALPRAZolam 0.5 MG TAB PO PRN (10:03)
[2021-02-04] MEDS ORDERED: SODIUM CHLORIDE 0.9% 1,000 ML in EMPTY BAG 1 BAG IV ONE (10:03)
[2021-02-04] MEDS ORDERED: ASPIRIN 325 MG TAB PO STA (10:03)
[2021-02-04] MEDS ORDERED: ALPRAZolam 0.25 MG TAB PO PRN (10:03)
[2021-02-04] MEDS ORDERED: HYDROmorphone 0.5 MG/0.5 ML SYRINGE IVP STA (10:25)
[2021-02-04] MEDS ORDERED: MIDAZOLAM 2 MG/2 ML VIAL IV ONE (11:24)
[2021-02-04] MEDS ORDERED: LIDOCAINE 1% INJ 10MG/ML (20 ML MDV) SQ ONE (11:26)
[2021-02-04] MEDS ORDERED: BIVALIRUDIN BOLUS 250 MG/50 ML IV ONE (11:28)
[2021-02-04] MEDS ORDERED: BIVALIRUDIN 250 MG in SODIUM CHLORIDE 0.9% 50 ML IV ONE ×2 (11:28→12:16)
[2021-02-04] MEDS ORDERED: CLOPIDOGREL 75 MG TAB PO ONE (11:30)
[2021-02-04] MEDS ORDERED: HYDROmorphone 0.5 MG/0.5 ML SYRINGE IVP ONE ×2 (11:36→12:55)
[2021-02-04] MEDS ORDERED: NITROGLYCERIN 1000MCG/10ML SYRINGE INTRACORON ONE (11:46)
[2021-02-04] MEDS ORDERED: IOPAMIDOL-370 125ML BTL INJ ONE (12:50)
[2021-02-04] MEDS ORDERED: IOPAMIDOL-370 100ML BTL INJ ONE (13:10)
[2021-02-04] MEDS ORDERED: tiZANidine 4 MG TAB PO PRN (13:18)
[2021-02-04] MEDS ORDERED: ZOLPIDEM 5 MG TAB PO PRN (13:19)
[2021-02-04] MEDS ORDERED: MAG HYDROX/AL HYDROX/SIMETH 30 ML CUP PO PRN (13:19)
[2021-02-04] MEDS ORDERED: RX INFO: IV CONTRAST WAS GIVEN 1 EACH MISC MISCELLANE PRN (13:19)
[2021-02-04] MEDS ORDERED: ATROPINE SULFATE 0.1 MG/ML 10ML SYRINGE IV PRN (13:19)
[2021-02-04] MEDS ORDERED: NITROGLYCERIN SL TABS 0.4 MG TAB SUBLINGUAL PRN (13:19)
[2021-02-04] MEDS ORDERED: SODIUM CHLORIDE 0.9% 1,000 ML IV SCH (13:30)
[2021-02-04] MEDS ORDERED: HYDROmorphone 0.5 MG/0.5 ML SYRINGE IVP PRN (15:01)
--- NOTE | 2021-02-04 15:15 | PTCA ---
PERCUTANEOUSTRANS CORORONARY ANGIOGRAPHY DATE OF SERVICE: 02/04/2021 PERFORMING PHYSICIAN: Rome Sumner MD. PROCEDURE PERFORMED: 1. Successful stenting of the mid right coronary artery using 2.75 x 15 mm Xience drug- eluting stent with an excellent angiographic results and reduction of stenosis from 80% to 0%. 2. Successful stenting of the proximal to mid left anterior descending artery using 2.0 x 12 mm Fords drug-eluting stent which was post-dilated using 2.5 mm NC balloon with an excellent angiographic results and reduction of stenosis from 80% to 0% with extremely challenging procedure. INDICATION: This is a 66-year-old gentleman with history of coronary artery disease and prior stenting of the proximal left anterior descending artery, who presented to [facility] with chest discomfort concerning for angina. He was seen by Dr. Garcia who recommended proceeding with coronary angiogram. APPROACH: Right common femoral artery. COMPLICATION: None. LEVEL OF SEDATION: Moderate with the procedure length of 98 minutes. PROCEDURE DESCRIPTION: Please refer to the diagnostic heart catheterization that was performed at [facility] earlier today. Anticoagulation was initiated using Angiomax. Subsequently, I did engage the RCA using JR4 guide. I did wire the RCA using a run- through wire. After that I did balloon angioplasty of the mid RCA using 2.5 x 12 mm balloon. Attempting advancing 2.75 x 15 mm size Xience stent was unsuccessful and the stent was not making the turn to the proximal right coronary artery and because of that I use GuideLiner. With GuideLiner I was able to get the stent to the mid right coronary artery where the stent was positioned under fluoroscopy guidance and deployed under its nominal pressure. The following angiogram showed good angiographic results and the procedure on the RCA was performed at that point. For the left anterior descending artery, I did engage the left main using an XB 4 LAD. I tried XB 3.5 and I was unable to engage the left main. I did wire the left anterior descending artery using a run-through wire. Attempting advancing balloon was unsuccessful and I could not get the balloon from the left main to the LAD because of the stent in the proximal left anterior descending artery. I did use GuideLiner and that was unsuccessful. I did wire the LAD using a double wire and that was with a run-through wire and Whisper wire and with that I was unable to get the balloon as well. Finally, after multiple attempts, I was able to get 1.[address] to the proximal to mid LAD where I did PTCA ballooning of the proximal to mid LAD where the balloon which was a 1.5 x 8 was inflated multiple times. It was actually 1.5 x 8 mm balloon. After that I did balloon angioplasty using 2.0 x 12 mm balloon. Attempting advancing Fords stent was unsuccessful again. After that I did wire the LAD. I pulled one of the run-through wires out and I placed a stainless steel BMW wire. Attempting advancing the stent over, PMW was unsuccessful. At that point, I decided to balloon the whole proximal left anterior descending artery. That was achieved using 2.5 x 12 mm balloon. After that I was able to advance the Fords 2.0 x 12 mm stent to the proximal to mid LAD where the stent was positioned under fluoroscopy guidance and deployed under its nominal pressure. The following angiogram showed good angiographic results and I post-dilated the stent using 2.5 mm NC balloon. The final angiogram showed excellent angiographic results and the procedure was completed without any complication. POSTPROCEDURE MANAGEMENT: 1. Dual anti-platelet therapy. 2. Risk factor modifications. 3. Follow up with the patient. MMODL / IJN: [id number] /
[2021-02-04 17:14] LABS: Glucose,Whole Blood 370 mg/dL (75-99)
[2021-02-04] MEDS: glipiZIDE 10 MG TAB PO SCH (18:27)
[2021-02-04] MEDS: INSULIN ASPART (NovoLOG) 100 UNIT/ML VIAL SQ SCH ×2 (18:28→21:11)
[2021-02-04 20:10] LABS: Glucose,Whole Blood 563 mg/dL (75-99)
[2021-02-04] MEDS ORDERED: INSULIN ASPART (NovoLOG) 100 UNIT/ML VIAL SQ ONE (20:30)
[2021-02-04] MEDS ORDERED: ATORVASTATIN 80 MG TAB PO SCH (21:00)
[2021-02-04] MEDS ORDERED: INSULIN DETEMIR (LEVEMIR) 100 UNIT/ML SYR SQ SCH (21:00)
[2021-02-04] MEDS: METOPROLOL TARTRATE 50 MG TAB PO SCH (21:11)
[2021-02-04] MEDS: PREGABALIN 75 MG CAP PO SCH (21:11)
--- NOTE | 2021-02-04 22:57 | P.HPIM ---
History of Present Illness this is a pleasant 66 yo M wiht past medical history of asthma, coronary artery disease status post stent and diabetes mellitus , hypertension , hyperlipidemia . 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 He was transferred from [facility] where he presented because of central chest pain about 2 days duration associated with significant fatigue and some dyspnea but no coughing. No abdominal pain or fever. Patient denies smoking, alcohol or illicit drugs his vitals are stable, his blood pressure was elevated on admission 161/77 labs showing Review of Systems CONSTITUTIONAL: No fever, no malaise, no fatigue. HEENT: No recent visual problems or hearing problems. Denied any sore throat. CARDIOVASCULAR: No orthopnea, PND, no palpitations, no syncope. PULMONARY: No shortness of breath, no cough, no hemoptysis. GASTROINTESTINAL: No diarrhea, no nausea, no vomiting, no abdominal pain. Normoactive bowel sounds. NEUROLOGICAL: No headaches, no weakness, no numbness. HEMATOLOGICAL: Denies any bleeding or petechiae. GENITOURINARY: Denies any burning micturition, frequency, or urgency. MUSCULOSKELETAL/RHEUMATOLOGICAL: Denies any joint pain, swelling, or any muscle pain. ENDOCRINE: Denies any polyuria or polydipsia. Past Medical History Past Medical History: Asthma, Coronary Artery Disease (CAD), Diabetes Mellitus, Hyperlipidemia, Hypertension History of Any Multi-Drug Resistant Organisms: None Reported Past Surgical History: Heart Catheterization With Stent Past Psychological History: Depression, PTSD Past Alcohol Use History: None Reported Past Drug Use History: None Reported - Past Family History Father History Unknown: Yes Family Medical History: Coronary Artery Disease (CAD), Diabetes Mellitus Additional Family Medical History / Comment(s): hemophilia Mother Family Medical History: Diabetes Mellitus Medications and Allergies Home Medications Medication Instructions Recorded Confirmed Type Atorvastatin Calcium [Lipitor] 80 mg PO HS 10/31/19 02/04/21 History Metoprolol Tartrate [Lopressor] 100 mg PO BID 10/31/19 02/04/21 History Pregabalin [Lyrica] 75 mg PO BID 10/31/19 02/04/21 History metFORMIN HCL 1,000 mg PO BID 10/31/19 02/04/21 History amLODIPine [Norvasc] 10 mg PO DAILY 02/04/21 02/04/21 History glipiZIDE [Glucotrol] 10 mg PO BID 02/04/21 02/04/21 History rOPINIRole HCL [Requip] 2 mg PO BID 02/04/21 02/04/21 History tiZANidine [Zanaflex] 4 mg PO HS PRN 02/04/21 02/04/21 History Allergies Allergy/AdvReac Type Severity Reaction Status Date / Time Iodinated Contrast Media AdvReac Unknown Verified 02/04/21 09:51 Physical Exam Vitals: Vital Signs Temp Pulse Resp BP BP Pulse Ox 02/04/21 10:40 62 18 142/71 162/64 100 02/04/21 10:25 66 18 167/80 182/70 100 02/04/21 10:10 64 18 158/75 160/60 96 02/04/21 09:55 62 18 160/75 162/60 98 02/04/21 09:41 98.7 F 61 18 161/77 176/66 99 02/04/21 09:05 62 18 186/88 172/64 100 Intake and Output 02/03/21 02/04/21 02/04/21 22:59 06:59 14:59 Other: Weight 108.862 kg GENERAL: The patient is alert and oriented x3, not in any acute distress. Well developed, well nourished. HEENT: Pupils are round and equally reacting to light. EOMI. No scleral icterus. No conjunctival pallor. Normocephalic, atraumatic. No pharyngeal erythema. No thyromegaly. CARDIOVASCULAR: S1 and S2 present. No murmurs, rubs, or gallops. PULMONARY: Chest is clear to auscultation, no wheezing or crackles. ABDOMEN: Soft, nontender, nondistended, normoactive bowel sounds. No palpable organomegaly. MUSCULOSKELETAL: No joint swelling or deformity. EXTREMITIES: No cyanosis, clubbing, or pedal edema. NEUROLOGICAL: Gross neurological examination did not reveal any focal deficits. SKIN: No rashes. No petechiae Results Labs: Abnormal Lab Results - Last 24 Hours (Table) 02/04/21 Range/Units 09:05 POC Glucose (mg/dL) 310 H (75-99) mg/dL Assessment and Plan Assessment: Chest pain, secondary to coronary artery disease status post cardiac cath and PCI stent placement 2 Type 2 diabetes mellitus, with hyperglycemia Hypertension Hyperlipidemia History of asthma, not an active issue History of coronary artery disease status post stent Plan: This is a pleasant 66 years old male who presents with chest pain, status post cardiac cath and stent placement, cardiology consult, continue with aspirin and Plavix Continue with the glipizide, insulin sliding scale Labs and medication were reviewed.. Continue same treatment. Continue with symptomatic treatment. Resume home medication. Monitor lytes and vitals. DVT and GI prophylaxis. Further recommendations depends on the clinical course of the patient DVT prophylaxis: Subcutaneous heparin GI Prophylaxis: Pepcid
[2021-02-05 01:58] LABS: Glucose,Whole Blood 287 mg/dL (75-99)
[2021-02-05 04:18] VITALS: RESP 16
[2021-02-05 06:12] LABS: Glucose,Whole Blood 291 mg/dL (75-99)
[2021-02-05] MEDS: INSULIN ASPART (NovoLOG) 100 UNIT/ML VIAL SQ SCH ×2 (06:17→13:20)
[2021-02-05] MEDS: glipiZIDE 10 MG TAB PO SCH (06:17)
[2021-02-05] MEDS ORDERED: ACETAMINOPHEN TAB 325 MG TAB PO PRN (06:21)
[2021-02-05 08:06] LABS: Basophils % (A) 0 %; Eosinophils # (A) 0.1 k/uL (0-0.7); Eosinophils % (A) 1 %; HCT 40.4 % (39.0-53.0); HGB 13.9 gm/dL (13.0-17.5); Lymphocytes % (A) 6 %; MCH 28.9 pg (25.0-35.0); MCHC 34.5 g/dL (31.0-37.0); MCV 83.8 fL (80.0-100.0); Mean Platelet Volume 6.5; Monocytes # (A) 0.6 k/uL (0-1.0); Monocytes % (A) 3 %; Neutrophils # (A) 14.5 k/uL (1.3-7.7); Neutrophils % (A) 89 %; Platelet Count 363 k/uL (150-450); RBC 4.82 m/uL (4.30-5.90); RDW 14.4 % (11.5-15.5); WBC 16.3 k/uL (3.8-10.6)
[2021-02-05 08:23] LABS: African American GFR (CKD) >90 (>60 ml/min/1.73 sqM); Anion Gap 8 mmol/L; Blood Urea Nitrogen 25 mg/dL (9-20); Calcium 9.2 mg/dL (8.4-10.2); Carbon Dioxide 24 mmol/L (22-30); Chloride 100 mmol/L (98-107); Glucose 329 mg/dL (74-99); Non-African American GFR(CKD) >90 (>60 ml/min/1.73 sqM); Potassium 4.3 mmol/L (3.5-5.1); Sodium 132 mmol/L (137-145)
[2021-02-05] MEDS ORDERED: FAMOTIDINE 20 MG/2 ML VIAL IV SCH (09:00)
[2021-02-05] MEDS ORDERED: HEPARIN SODIUM,PORCINE/PF 5,000 UNIT/0.5 ML SYRINGE SQ SCH (09:00)
[2021-02-05] MEDS ORDERED: amLODIPine 10 MG TAB PO SCH (09:00)
[2021-02-05] MEDS ORDERED: ASPIRIN 81 MG PO SCH (09:45)
[2021-02-05] MEDS: PREGABALIN 75 MG CAP PO SCH (09:50)
[2021-02-05] MEDS: METOPROLOL TARTRATE 50 MG TAB PO SCH (09:51)
--- NOTE | 2021-02-05 09:51 | P.PN ---
Subjective HISTORY OF PRESENTING ILLNESS Patient had presented to [facility] with chest pain and had diagnostic heart catheterization performed which showed obstructive disease in the RCA as well as LAD. Patient underwent successful PCI of the RCA and LAD yesterday from the right femoral approach. Patient denies any further chest pain or pressure however does have dull chest ache which is worse with palpitation and reproducible on exam. He denies any shortness breath. Patient states he feels well and is anxious to go home. REVIEW OF SYSTEMS At the time of my exam: CONSTITUTIONAL: Denies fever or chills. CARDIOVASCULAR: Denies chest pain, shortness of breath, orthopnea, PND or palpitations. RESPIRATORY: Denies cough. GASTROINTESTINAL: Denies abdominal pain, diarrhea, constipation, nausea or vomiting. MUSCULOSKELETAL: Denies myalgias. NEUROLOGIC: Denies numbness, tingling or weakness. ENDOCRINE: Denies fatigue, weight change, polydipsia or polyurina. GENITOURINARY: Denies burning, hematuria or urgency with micturation. HEMATOLOGIC: Denies history of anemia or bleeding. PHYSICAL EXAMINATION Vitals reviewed CONSTITUTIONAL: No apparent distress, obese HEENT: Head is normocephalic. Pupils are equal, round. Sclerae anicteric. Mucous membranes of the mouth are moist. No JVD. No carotid bruit. CHEST EXAMINATION: Lungs are clear to auscultation. No chest wall tenderness is noted on palpation or with deep breathing. HEART EXAMINATION: Regular rate and rhythm. S1, S2 heard. No murmurs, gallops or rub. ABDOMEN: Soft, nontender. Positive bowel sounds. EXTREMITIES: 2+ peripheral pulses, no lower extremity edema and no calf tenderness. +right femoral site without hematoma, 2+ pulse NEUROLOGIC EXAMINATION: Patient is awake, alert and oriented x3. ASSESSMENT 1. Coronary artery disease with unstable angina status post PCI LAD and RCA 02/04 and 2. Essential hypertension 3. Diabetes mellitus type 2 4. Hyperlipidemia 5. Status post recent benign tumor removal at [facility] 10/22/2019 PLAN Patient only complains of a dull reproducible chest pain which does not appear anginal. He underwent successful PCI of the LAD and RCA. Vital signs stable and right femoral site appears stable. Patient stable for discharge home on aspirin and Plavix and continue with current cardiac medications. Follow-up in office in 1 week. Objective - Vital Signs Vital signs: Vital Signs Temp 97.8 F 04/22/21 08:27 Pulse 70 02/05/21 08:27 Resp 16 02/05/21 08:27 BP 132/67 02/05/21 08:27 Pulse Ox 99 02/05/21 08:27 Intake & Output 02/04/21 02/05/21 02/05/21 18:59 06:59 18:59 Intake Total 930 240 Output Total 900 1200 100 Balance 30 -1200 140 Weight 108.862 kg 105.9 kg Intake: IV 150 Oral 780 240 Output: Urine 900 1200 100 Other: Voiding Method Toilet # Voids 2 - Labs CBC & Chem 7: 02/05/21 07:48 02/05/21 07:48 Labs: Abnormal Lab Results - Last 24 Hours (Table) 02/04/21 02/04/21 02/05/21 Range/Units 17:02 20:08 01:56 WBC (3.8-10.6) k/uL Neutrophils # (1.3-7.7) k/uL Sodium (137-145) mmol/L BUN (9-20) mg/dL Glucose (74-99) mg/dL POC Glucose (mg/dL) 370 H 563 H 287 H (75-99) mg/dL 02/05/21 02/05/21 02/05/21 Range/Units 06:10 07:48 07:48 WBC 16.3 H (3.8-10.6) k/uL Neutrophils # 14.5 H (1.3-7.7) k/uL Sodium 132 L (137-145) mmol/L BUN 25 H (9-20) mg/dL Glucose 329 H (74-99) mg/dL POC Glucose (mg/dL) 291 H (75-99) mg/dL
[2021-02-05 11:33] LABS: Glucose,Whole Blood 274 mg/dL (75-99)
[2021-02-05] MEDS ORDERED: CLOPIDOGREL 75 MG TAB PO SCH (12:00)
[2021-02-05 13:32] VITALS: BP 129/68; PULSE 64; TEMP 97.4
--- NOTE | 2021-02-05 22:45 | P.DS ---
Providers Date of admission: 02/04/21 09:00 Attending physician: Binh Ugalde Consults: 02/04/21 13:19 Consult Physician Routine Consulting Provider: [facility] Consult Reason/Comments: Post Interventional patient Do you want consulting provider notified?: Already Contacted Primary care physician: Cecilio Ford Hospital Course: Diagnoses prolonged -unstable angina status post cardiac cath and PCI to LAD and RCA -Type 2 diabetes mellitus, with hyperglycemia -Hypertension -Hyperlipidemia -Historyof asthma, not an active issue -History of coronary artery disease status post stent Hospital course: this is a pleasant 66 yo M wiht past medical history of asthma, coronary artery disease status post stent and diabetes mellitus , hypertension , hyperlipidemia . 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 He was transferred from [facility] where he presented because of chest pain about 2 days duration associated with significant fatigue. Patient was diagnosed with unstable angina. He was evaluated by caregivers non medical, [facility]. He underwent cardiac cath with stent placement to LAD and RCA, postprocedure is doing well, he denies chest pain or dyspnea or abdominal pain. No change in urine or bowel habits. No fever. No palpitation or dizziness. Patient feels fine to go home today he was walking in the room normal. Patient was cleared for discharge by caregivers non medical and follow-up with Dr. Sumner in one week after discharge and patient agrees. Patient will be discharged on aspirin and Plavix and importance of adherence to treatment is explained for him. Also patient was instructed to follow up with his PCP Dr. Cee to recheck his white cell count and creatinine. In the meantime patient was instructed to hold metformin until checking his creatinine first in one week, and he said he was instructed to keep the glipizide 10 mg twice daily and added Levemir 15 units at bedtime. Patient will check his sugar at home. Detailed instruction is provided for the patient both verbally and written, C discharge instructions Problems and management plan were discussed with the patient and he verbalized understanding and acceptance Patient was found stable and can be discharged home however he needs follow-up as an outpatient. Patient was instructed to follow up with PCP within one week and patient agrees with the appointments made for him on 02/12. Patient also was instructed to follow up with Dr. Sumner in one week and he agrees to call and make appointment. The staff contacted the office will stated they will contact the patient themselves Physical exam Gen: patient is a AAOx3, no distress CVS: S1-S2, RRR, no murmur Lungs: B/L CTA, no wheezing Abdomen: soft, no distention, no tenderness, positive bowel sounds Extremity: no leg edema or induration Time spent more than 35 minutes Plan - Discharge Summary Discharge Rx Participant: No New Discharge Prescriptions: New Nitroglycerin Sl Tabs [Nitrostat] 0.4 mg SUBLINGUAL Q5M PRN #20 tab PRN Reason: Chest Pain Clopidogrel [Plavix] 75 mg PO DAILY #30 tab Insulin Detemir (Levemir) [Levemir] 15 unit SQ HS #1 vial Aspirin 81 mg PO DAILY #30 chew Continue Pregabalin [Lyrica] 75 mg PO BID Metoprolol Tartrate [Lopressor] 100 mg PO BID Atorvastatin Calcium [Lipitor] 80 mg PO HS amLODIPine [Norvasc] 10 mg PO DAILY rOPINIRole HCL [Requip] 2 mg PO BID glipiZIDE [Glucotrol] 10 mg PO BID tiZANidine [Zanaflex] 4 mg PO HS PRN PRN Reason: Muscle Spasm Discontinued metFORMIN HCL 1,000 mg PO BID Discharge Medication List Atorvastatin Calcium [Lipitor] 80 mg PO HS 10/31/19 [History] Metoprolol Tartrate [Lopressor] 100 mg PO BID 10/31/19 [History] Pregabalin [Lyrica] 75 mg PO BID 10/31/19 [History] amLODIPine [Norvasc] 10 mg PO DAILY 02/04/21 [History] glipiZIDE [Glucotrol] 10 mg PO BID 02/04/21 [History] rOPINIRole HCL [Requip] 2 mg PO BID 02/04/21 [History] tiZANidine [Zanaflex] 4 mg PO HS PRN 02/04/21 [History] Aspirin 81 mg PO DAILY #30 chew 02/05/21 [Rx] Clopidogrel [Plavix] 75 mg PO DAILY #30 tab 02/05/21 [Rx] Insulin Detemir (Levemir) [Levemir] 15 unit SQ HS #1 vial 02/05/21 [Rx] Nitroglycerin Sl Tabs [Nitrostat] 0.4 mg SUBLINGUAL Q5M PRN #20 tab 02/05/21 [Rx] Follow up Appointment(s)/Referral(s): Logan Hernandes MD [Primary Care Provider] - 02/12/21 9:40 am (check your wbc and creatinine level with your doctor ) Rome Sumner MD [STAFF PHYSICIAN] - 1 Week (THE OFFICE WILL CALL YOU WITH AN APPOINTMENT DATE AND TIME) Patient Instructions/Handouts: *Surgery [facility] - After Heart Catheterization - Business Center Manager Instructions, How to Give an Insulin Injection (DC), Cardiac Rehabilitation (ED), Procedural Sedation (ED), Angio-Seal (DC), Carotid Artery Stent Placement (DC) Activity/Diet/Wound Care/Special Instructions: *NO LIFTING, PUSHING, OR PULLING ANYTHING OVER 10 POUNDS FOR 5 DAYS *NO DRIVING FOR 3 DAYS *YOU CAN SHOWER TOMORROW BUT DO NOT SUBMERSE YOUR PUNCTURE SITE IN WATER FOR A FEW DAYS TO PREVENT INFECTION - SO NO TUB BATHS, POOLS, HOT TUBS.....ETC. *ANY SIGNS OF BLEEDING (HARDNESS, SWELLING, OR EXCESSIVE BRUISING) HOLD DIRECT PRESSURE ON YOUR PUNCTURE SITE AND COME TO THE NEAREST EMERGENCY ROOM TO GET YOUR PUNCTURE SITE LOOKED AT - DO NOT DRIVE YOURSELF! EITHER CALL EMS OR HAVE SOMEONE DRIVE YOU! Heart healthy diet activity is restricted till you see your doctor we recommend to check your glucose 4 times a day , before each meal and at bed time, keep the results in a log book and bring it to your doctor on your appointment date if your glucose is less than 70 or more than 400 then call 911 and come to emergency room you got contrast during heart catheterizing which might increase your kidney function number ( serum creatinine) . so hold metformin and start levemir insulin instead. check your kidney test with in one week , if stays normal then your can resume your metforin ( and discontinue insulin levemir per ) Discharge Disposition: HOME SELF-CARE
== END 2021-02-05 13:43 | disposition home or self-care (01) | DRG 247 ==
LOC: 3SCARD 09:00
PROVIDERS: ADMIT Internal Medicine; ATTEND Internal Medicine
PROC: B2111ZZ Fluoroscopy of Multiple Coronary Arteries using Low Osmolar Contrast (ICD-10-PCS; principal; 2021-02-04 11:10)
PROC: 4A023N7 Measurement of Cardiac Sampling and Pressure, Left Heart, Percutaneous Approach (ICD-10-PCS; principal; 2021-02-04 11:10)
PROC: 027135Z Dilation of Coronary Artery, Two Arteries with Two Drug-eluting Intraluminal Devices, Percutaneous Approach (ICD-10-PCS; principal; 2021-02-04 11:10)
DX: I25.110 Atherosclerotic heart disease of native coronary artery with unstable angina pectoris (principal); E11.65 Type 2 diabetes mellitus with hyperglycemia; I10 Essential (primary) hypertension; E78.5 Hyperlipidemia, unspecified; F32.9 Major depressive disorder, single episode, unspecified; F43.10 Post-traumatic stress disorder, unspecified; J45.909 Unspecified asthma, uncomplicated; Z86.018 Personal history of other benign neoplasm; Z82.49 Family history of ischemic heart disease and other diseases of the circulatory system; Z83.3 Family history of diabetes mellitus; Z83.2 Family history of diseases of the blood and blood-forming organs and certain disorders involving the immune mechanism; Z95.5 Presence of coronary angioplasty implant and graft; Z91.041 Radiographic dye allergy status; Z79.84 Long term (current) use of oral hypoglycemic drugs; Z79.899 Other long term (current) drug therapy
CPT/HCPCS: 80048; 85025

== ENCOUNTER → 2021-02-10 | Outpatient (CLI) | payer MEDICARE, OTHER ==
[2021-02-10 18:47] LABS: African American GFR (CKD) 89.9 (60.0-200.0); Albumin 4.6 g/dL (3.80-4.90); Albumin/Globulin Ratio 2.71 (1.60-3.17); Anion Gap 12.1 mmol/L (4.00-12.00); Bilirubin, Conjugated 0.3 mg/dL (0.20-0.40); Bilirubin,Unconjugated 0.5 mg/dL; Carbon Dioxide 23.9 mmol/L (21.6-31.8); Chol/HDL Ratio 3.17; Globulin 1.7 g/dL (1.6-3.3); LDL Cholesterol,Calculated 38.2 mg/dL (0.0-131.0); Non-African American GFR(CKD) 77.5 (60.0-200.0); Potassium 3.6 mmol/L (3.5-5.5); Total Bilirubin 0.8 mg/dL (0.3-1.2); Total Protein 6.3 g/dL (6.2-8.2); VLDL Calculation 26.8 mg/dL (5.00-40.00)
[2021-02-10 19:32] LABS: Hemoglobin A1C 10.9 % (4.0-6.0)
== END | disposition home or self-care (01) ==
LOC: LABWHC1 10:20
PROVIDERS: ATTEND Nurse Practitioner Adult Health
DX: E78.5 Hyperlipidemia, unspecified (principal); E11.9 Type 2 diabetes mellitus without complications; I10 Essential (primary) hypertension; I25.10 Atherosclerotic heart disease of native coronary artery without angina pectoris
CPT/HCPCS: 36415; 80051; 80061; 80076; 82565; 83036; 84520

== ENCOUNTER 2022-03-08 13:39 | Inpatient (IN) | payer MEDICARE, OTHER ==
[2022-03-08] MEDS ORDERED: SODIUM CHLORIDE 0.9% 1,000 ML IV STA ×2 (13:45→14:29)
[2022-03-08] MEDS ORDERED: diphenhydrAMINE 50 MG/ML 1 ML VIAL IVP STA (13:46)
[2022-03-08] MEDS ORDERED: methylPREDNISolone SOD SUCCI 125 MG/2 ML VIAL IV STA (13:46)
[2022-03-08] MEDS ORDERED: FAMOTIDINE 20 MG/2 ML VIAL IV STA (13:46)
[2022-03-08 13:50] LABS: Glucose,Whole Blood 528 mg/dL (75-99)
--- NOTE | 2022-03-08 13:53 | ED ---
General Adult HPI - General Chief complaint: Neuro Symptoms/Deficit Stated complaint: neuro Time Seen by Provider: 03/08/22 13:40 Source: patient, EMS, RN notes reviewed Mode of arrival: EMS Limitations: no limitations - History of Present Illness Initial comments: Patient is a pleasant 67-year-old male presenting to the emergency department with concerns for mental status change. Patient was at [facility] in the car and bystander felt him to be unresponsive. Patient does not recall being unresponsive. Patient states his left side seemed weak. Patient believes this has resolved at this time. EMS found patient slightly confused. Not oriented t o place. They state that resolved. EMS did not witness patient unresponsive. Patient states he feels close to normal at this time except for does admit to being thirsty. Patient has not checked his blood sugar in several days. Patient is diabetic, on metformin, no insulin. EMS had blood sugar around 450. - Related Data Home Medications Medication Instructions Recorded Confirmed Atorvastatin Calcium [Lipitor] 80 mg PO HS 10/31/19 02/04/21 Metoprolol Tartrate [Lopressor] 100 mg PO BID 10/31/19 02/04/21 Pregabalin [Lyrica] 75 mg PO BID 10/31/19 02/04/21 amLODIPine [Norvasc] 10 mg PO DAILY 02/04/21 02/04/21 glipiZIDE [Glucotrol] 10 mg PO BID 02/04/21 02/04/21 rOPINIRole HCL [Requip] 2 mg PO BID 02/04/21 02/04/21 tiZANidine [Zanaflex] 4 mg PO HS PRN 02/04/21 02/04/21 Previous Rx's Medication Instructions Recorded Aspirin 81 mg PO DAILY #30 chew 02/05/21 Clopidogrel [Plavix] 75 mg PO DAILY #30 tab 02/05/21 Insulin Detemir (Levemir) [Levemir] 15 unit SQ HS #1 vial 02/05/21 Nitroglycerin Sl Tabs [Nitrostat] 0.4 mg SUBLINGUAL Q5M PRN #20 tab 02/05/21 Allergies Allergy/AdvReac Type Severity Reaction Status Date / Time Iodinated Contrast Media AdvReac Unknown Verified 03/08/22 15:59 Review of Systems ROS Statement: Those systems with pertinent positive or pertinent negative responses have been documented in the HPI. ROS Other: All systems not noted in ROS Statement are negative. Constitutional: Denies: fever Eyes: Denies: eye pain ENT: Denies: ear pain Respiratory: Denies: cough Cardiovascular: Denies: chest pain Endocrine: Reports: polydipsia. Denies: fatigue Gastrointestinal: Denies: vomiting Genitourinary: Denies: dysuria Musculoskeletal: Denies: back pain Skin: Denies: rash Neurological: Reports: as per HPI, weakness, confusion. Denies: headache Past Medical History Past Medical History: Asthma, Coronary Artery Disease (CAD), Diabetes Mellitus, Hyperlipidemia, Hypertension History of Any Multi-Drug Resistant Organisms: None Reported Past Surgical History: Heart Catheterization With Stent Past Anesthesia/Blood Transfusion Reactions: No Reported Reaction Date of Last Stent Placement:: 02/04/21 Past Psychological History: Depression, PTSD Past Alcohol Use History: None Reported Past Drug Use History: None Reported - Past Family History Father History Unknown: Yes Family Medical History: Coronary Artery Disease (CAD), Diabetes Mellitus Additional Family Medical History / Comment(s): hemophilia Mother Family Medical History: Diabetes Mellitus General Exam Limitations: no limitations General appearance: alert, in no apparent distress Head exam: Present: normocephalic Eye exam: Present: normal appearance, PERRL, EOMI ENT exam: Present: mucous membranes dry Neck exam: Present: normal inspection Respiratory exam: Present: normal lung sounds bilaterally Cardiovascular Exam: Present: regular rate, normal rhythm GI/Abdominal exam: Present: soft. Absent: tenderness Extremities exam: Present: tenderness (Deformity right upper extremity from patient history of erb palsy) Neurological exam: Present: alert, CN II-XII intact Expanded Neurological exam: Present: protecting the airway, other (Patient does have minimal slurred speech) Cranial nerves: EOM's Intact: Normal Sensory exam: Upper Extremity Light Touch: Normal, Lower Extremity Light Touch: Normal Motor strength exam: RUE: 2/1 (Chronic), LUE: 5, RLE: 5, LLE: 5 Eye Response: (4) open spontaneously Motor Response: (6) obeys commands Verbal Response: (5) oriented Psychiatric exam: Present: normal affect, normal mood Skin exam: Present: normal color Course Vital Signs 03/08/22 13:41 Temperature 97.7 F Pulse Rate 64 Respiratory 18 Rate Blood Pressure 120/61 O2 Sat by Pulse 98 Oximetry - Reevaluation(s) Reevaluation #1: 03/08/22 13:52 Patient not felt TPA candidate secondary to risks outweighing the benefit. No definite sign of stroke at this time. Right upper extremity weakness is chronic and unchanged. Patient has minimal slurred speech however dry mucous membrane and hyperglycemia. 03/08/22 14:03 Case was discussed with Dr. sharif, who agrees patient not a TPA candidate EKG Findings - EKG Comments: EKG Findings:: Sinus rhythm with a rate of 64. MD 124. QRS 104. QT 41. QTC 411. Normal axis. Normal QRS. No acute ST change. Medical Decision Making - Medical Decision Making Patient reevaluated and resting comfortably in bed. Dr. Paul has been paged for admission covering Dr. Cee - Lab Data Result diagrams: 03/08/22 13:51 03/08/22 13:51 Lab Results 03/08/22 03/08/22 03/08/22 Range/Units 13:48 13:51 13:51 WBC 11.9 H (3.8-10.6) k/uL RBC 4.61 (4.30-5.90) m/uL Hgb 12.6 L (13.0-17.5) gm/dL Hct 39.6 (39.0-53.0) % MCV 85.9 (80.0-100.0) fL MCH 27.4 (25.0-35.0) pg MCHC 31.9 (31.0-37.0) g/dL RDW 14.4 (11.5-15.5) % Plt Count 386 (150-450) k/uL MPV 6.8 Neutrophils % 83 % Lymphocytes % 11 % Monocytes % 3 % Eosinophils % 2 % Basophils % 1 % Neutrophils # 9.9 H (1.3-7.7) k/uL Lymphocytes # 1.3 (1.0-4.8) k/uL Monocytes # 0.4 (0-1.0) k/uL Eosinophils # 0.2 (0-0.7) k/uL Basophils # 0.1 (0-0.2) k/uL PT 10.2 (9.0-12.0) sec INR 0.9 (<1.2) APTT 17.9 L (22.0-30.0) sec Sodium (137-145) mmol/L Potassium (3.5-5.1) mmol/L Chloride (98-107) mmol/L Carbon Dioxide (22-30) mmol/L Anion Gap mmol/L BUN (9-20) mg/dL Creatinine (0.66-1.25) mg/dL Est GFR (CKD-EPI)AfAm (>60 ml/min/1.73 sqM) Est GFR (CKD-EPI)NonAf (>60 ml/min/1.73 sqM) Glucose (74-99) mg/dL POC Glucose (mg/dL) 528 H (75-99) mg/dL POC Glu Zigzag Stitcher ID Cammie [place] Calcium (8.4-10.2) mg/dL Total Bilirubin (0.2-1.3) mg/dL AST (17-59) U/L ALT (4-49) U/L Alkaline Phosphatase (38-126) U/L Troponin I (0.000-0.034) ng/mL Total Protein (6.3-8.2) g/dL Albumin (3.5-5.0) g/dL Acetone, Qual (Negative) 03/08/22 03/08/22 03/08/22 Range/Units 13:51 13:51 15:15 WBC (3.8-10.6) k/uL RBC (4.30-5.90) m/uL Hgb (13.0-17.5) gm/dL Hct (39.0-53.0) % MCV (80.0-100.0) fL MCH (25.0-35.0) pg MCHC (31.0-37.0) g/dL RDW (11.5-15.5) % Plt Count (150-450) k/uL MPV Neutrophils % % Lymphocytes % % Monocytes % % Eosinophils % % Basophils % % Neutrophils # (1.3-7.7) k/uL Lymphocytes # (1.0-4.8) k/uL Monocytes # (0-1.0) k/uL Eosinophils # (0-0.7) k/uL Basophils # (0-0.2) k/uL PT (9.0-12.0) sec INR (<1.2) APTT (22.0-30.0) sec Sodium 130 L (137-145) mmol/L Potassium 5.0 (3.5-5.1) mmol/L Chloride 96 L (98-107) mmol/L Carbon Dioxide 20 L (22-30) mmol/L Anion Gap 14 mmol/L BUN 20 (9-20) mg/dL Creatinine 1.11 (0.66-1.25) mg/dL Est GFR (CKD-EPI)AfAm 79 (>60 ml/min/1.73 sqM) Est GFR (CKD-EPI)NonAf 68 (>60 ml/min/1.73 sqM) Glucose 508 H* (74-99) mg/dL POC Glucose (mg/dL) 444 H (75-99) mg/dL POC Glu Zigzag Stitcher ID Cammie [place] Calcium 9.6 (8.4-10.2) mg/dL Total Bilirubin 0.5 (0.2-1.3) mg/dL AST 20 (17-59) U/L ALT 26 (4-49) U/L Alkaline Phosphatase 59 (38-126) U/L Troponin I <0.012 (0.000-0.034) ng/mL Total Protein 6.6 (6.3-8.2) g/dL Albumin 4.1 (3.5-5.0) g/dL Acetone, Qual Negative (Negative) - Radiology Data Radiology results: report reviewed (CT brain shows no acute process), image reviewed (Chest x-ray shows no acute process) Disposition Clinical Impression: Transient cerebral ischemia, Syncope, Hyperglycemia Disposition: ADMITTED IP TO THIS HOSP Is patient prescribed a controlled substance at d/c from ED?: No Referrals: Logan Hernandes MD [Primary Care Provider] - 1-2 days Time of Disposition: 16:05
[2022-03-08 14:03] LABS: Basophils # (A) 0.1 k/uL (0-0.2); Basophils % (A) 1 %; Eosinophils # (A) 0.2 k/uL (0-0.7); Eosinophils % (A) 2 %; HCT 39.6 % (39.0-53.0); HGB 12.6 gm/dL (13.0-17.5); Lymphocytes # (A) 1.3 k/uL (1.0-4.8); Lymphocytes % (A) 11 %; MCH 27.4 pg (25.0-35.0); MCHC 31.9 g/dL (31.0-37.0); MCV 85.9 fL (80.0-100.0); Mean Platelet Volume 6.8; Monocytes # (A) 0.4 k/uL (0-1.0); Monocytes % (A) 3 %; Neutrophils # (A) 9.9 k/uL (1.3-7.7); Neutrophils % (A) 83 %; Platelet Count 386 k/uL (150-450); RBC 4.61 m/uL (4.30-5.90); RDW 14.4 % (11.5-15.5); WBC 11.9 k/uL (3.8-10.6)
--- NOTE | 2022-03-08 14:19 | CT ---
EXAMINATION TYPE: CT brain wo con for TPA DATE OF EXAM: 03/08/2022 HISTORY: Neuro deficit, acute, stroke suspected. Code stroke. CT DLP: 1129.4 mGycm. Automated Exposure Control for Dose Reduction was Utilized. TECHNIQUE: CT scan of the head is performed without contrast. COMPARISON: CT brain February 26, 2017.. FINDINGS: There is no acute intracranial hemorrhage or midline shift identified. There is mild diff use ventricular and sulcal prominence consistent with diffuse age-related cerebral atrophy. Smith-whit e matter differentiation is preserved. The globes are intact and the visualized sinuses are clear. IMPRESSION: No acute intracranial hemorrhage or midline shift. There is mild diffuse age-related ce rebral atrophy redemonstrated. No significant change from prior.
[2022-03-08 14:22] LABS: INR 0.9 (<1.2); Prothrombin Time 10.2 sec (9.0-12.0)
[2022-03-08 14:26] LABS: ALT 26 U/L (4-49); AST 20 U/L (17-59); African American GFR (CKD) 79 (>60 ml/min/1.73 sqM); Albumin 4.1 g/dL (3.5-5.0); Alkaline Phosphatase 59 U/L (38-126); Anion Gap 14 mmol/L; Blood Urea Nitrogen 20 mg/dL (9-20); Calcium 9.6 mg/dL (8.4-10.2); Carbon Dioxide 20 mmol/L (22-30); Chloride 96 mmol/L (98-107); Non-African American GFR(CKD) 68 (>60 ml/min/1.73 sqM); Sodium 130 mmol/L (137-145); Total Bilirubin 0.5 mg/dL (0.2-1.3); Total Protein 6.6 g/dL (6.3-8.2)
[2022-03-08 14:32] LABS: Partial Thromboplastin Time 17.9 sec (22.0-30.0)
[2022-03-08 14:35] LABS: Glucose 508 mg/dL (74-99)
--- NOTE | 2022-03-08 14:45 | XR ---
EXAMINATION TYPE: XR chest 2V DATE OF EXAM: 03/08/2022 COMPARISON: Chest x-ray February 26, 2017 HISTORY: Altered mental status and weakness. TECHNIQUE: Frontal and lateral views of the chest are obtained. FINDINGS: Lateral view suboptimal due to large body habitus. Low lung volumes redemonstrated. There is no suspicious new focal air space opacity, pleural effusion, or pneumothorax seen. Cardiomegaly re demonstrated. The osseous structures are intact. IMPRESSION: Cardiomegaly without acute pulmonary process.
[2022-03-08 15:16] LABS: Glucose,Whole Blood 444 mg/dL (75-99)
[2022-03-08] MEDS ORDERED: INSULIN REGULAR 100 UNIT/ML VIAL (IV) IV ONE (16:05)
[2022-03-08] MEDS ORDERED: ASPIRIN 325 MG TAB PO STA (16:06)
--- NOTE | 2022-03-08 16:18 | CT ---
EXAMINATION TYPE: CT angio head neck DATE OF EXAM: 03/08/2022 HISTORY: neuro deficit COMPARISON: Nonenhanced CT brain performed earlier same day CT DLP: 1225.4 mGycm. Automated Exposure Control for Dose Reduction was Utilized. TECHNIQUE: CTA scan of the head and neck is performed with IV Contrast, patient injected with 65 mL of Isovue 370, axial images are obtained, coronal and sagittal reformatted images are reviewed. 3D re constructed images are created on an independent workstation and reviewed. FINDINGS: Carotid/Vascular Structures: Scattered arterial atherosclerotic calcifications and tortuosity. About 60% stenosis of the origin of the right internal carotid artery by a calcified atheromatous plaque ye t patent distally. Hypoplastic A1 segment of the right DORENE. -type right [employer]. Otherwise normal ca liber and enhancement of the remainder of the neck arteries and intracranial arteries without other s ignificant stenosis, occlusion, dissection or aneurysm. Hypoplastic left transverse sinus, otherwise patent major intracranial venous sinuses. Other: No intracranial abnormal enhancement. Heterogeneous thyroid gland, please correlate with thyro id ultrasound results. Degenerative changes of the cervical spine. Left upper lung zone calcified and noncalcified nodules measuring up to 4 mm, slightly more prominent as compared to 2013 CT scan. Foll ow-up elective CT scan of the chest can be considered in 3-6 months. IMPRESSION: 60% stenosis of the origin of the right internal carotid artery yet patent distally. No other signifi cant arterial stenosis, occlusion, dissection or aneurysm seen in the head or the neck. Incidental fi ndings and recommendations as described above.
[2022-03-08] MEDS: SODIUM CHLORIDE 0.9% 1,000 ML IV SCH ×2 (16:23→18:17)
[2022-03-08 17:51] LABS: Glucose,Whole Blood 464 mg/dL (75-99)
[2022-03-08] MEDS ORDERED: INSULIN ASPART (NovoLOG) 100 UNIT/ML VIAL SQ ONE (17:57)
[2022-03-08] MEDS: INSULIN ASPART (NovoLOG) 100 UNIT/ML VIAL SQ SCH ×2 (18:18→21:22)
[2022-03-08] MEDS: INSULIN DETEMIR (LEVEMIR) 100 UNIT/ML SYR SQ SCH (18:19)
[2022-03-08 21:08] LABS: Glucose,Whole Blood 491 mg/dL (75-99)
[2022-03-08] MEDS: ATORVASTATIN 40 MG TAB PO SCH (21:21)
[2022-03-09] MEDS ORDERED: INSULIN ASPART (NovoLOG) 100 UNIT/ML VIAL SQ ONE (02:03)
[2022-03-09 02:04] LABS: Glucose,Whole Blood 401 mg/dL (75-99)
[2022-03-09] MEDS: HEPARIN SODIUM,PORCINE/PF 5,000 UNIT/0.5 ML SYRINGE SQ SCH ×4 (02:18→23:44)
[2022-03-09 06:23] LABS: Glucose,Whole Blood 345 mg/dL (75-99)
[2022-03-09 07:06] LABS: Glucose,Whole Blood 282 mg/dL (75-99)
[2022-03-09] MEDS: INSULIN DETEMIR (LEVEMIR) 100 UNIT/ML SYR SQ SCH (08:00)
[2022-03-09] MEDS: ASPIRIN 325 MG TAB PO SCH (08:00)
[2022-03-09] MEDS: INSULIN ASPART (NovoLOG) 100 UNIT/ML VIAL SQ SCH ×6 (08:01→19:56)
[2022-03-09] MEDS: SODIUM CHLORIDE 0.9% 1,000 ML IV SCH ×3 (08:01→16:57)
[2022-03-09] MEDS ORDERED: glipiZIDE 10 MG TAB PO SCH (09:00)
[2022-03-09 09:16] LABS: Basophils % (A) 0 %; Eosinophils # (A) 0.1 k/uL (0-0.7); Eosinophils % (A) 0 %; HCT 37.3 % (39.0-53.0); Lymphocytes # (A) 0.9 k/uL (1.0-4.8); Lymphocytes % (A) 6 %; MCH 27.9 pg (25.0-35.0); MCHC 32.2 g/dL (31.0-37.0); MCV 86.5 fL (80.0-100.0); Mean Platelet Volume 7.6; Monocytes # (A) 0.5 k/uL (0-1.0); Monocytes % (A) 3 %; Neutrophils % (A) 90 %; Platelet Count 342 k/uL (150-450); RBC 4.31 m/uL (4.30-5.90); RDW 14.5 % (11.5-15.5); WBC 15.4 k/uL (3.8-10.6)
[2022-03-09] MEDS: PREGABALIN 75 MG CAP PO SCH ×2 (09:25→21:21)
[2022-03-09] MEDS: metFORMIN 500 MG TAB PO SCH ×2 (09:26→16:57)
[2022-03-09] MEDS: glipiZIDE 5 MG TAB PO SCH ×2 (09:26→16:57)
[2022-03-09] MEDS: METOPROLOL TARTRATE 50 MG TAB PO SCH ×2 (09:26→20:00)
--- NOTE | 2022-03-09 09:33 | P.CNNES ---
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 The patient stated that he was at [employer] yesterday and while he was in car between 1-2pm he tried get off and noticed his left leg is heavy the was felt by bystander that he became unrespon sive. Patient does not recall being unresponsive. He denies any urinary, bowel incontinence or tongue bite. Denies history of seizures. He states he has history of TIA for possible left facial droop. Patient is diabetic on metformin but is not on insulin and the EMS checked his sugar and it was 450. He stated he ran out of one of his diabetic medication for couple days. He resides alone. He currently feels his weakness in leg is improving. Today at 6:30am he notified nursing staff he has suicidal thoughts. Patient is not on any antiplatelets or any statins. Of note patient states he has chronic low back pain and not worsened. He has remote alcohol use. Some of the workup in the hospital consisted of: Initial POC glucose is 528 and the serum is 508. The sodium is 1:30. The rest of CBC with differential and chemistry panel as well as bilateral I personally reviewed CT of the head is reported as no acute intracranial hemorrhage or midline shift. There is mild diffuse age-related cerebral atrophy redemonstrated. No significant change from prior. I personally reviewed the CT of the head there is no acute or subacute ischemia in the results Rodrigo will hemorrhage. I fit the patient has hydrocephalus of old ventricle more than the atrophy concerning for NPH versus any other obstruction leading to his hydrocephalus. CT angiography of the head and neck was reported as 60% stenosis of origin of the right internal carotid artery yet patent distally. No other significant arterial stenosis, occlusion or dissection or aneurysm in the head and neck. EKG is reported as junctional rhythm. Abnormal rhythm EKG. Review of Systems Review of system: The 12 point system was reviewed and apparent positive and negative per HPI. Past Medical History Past Medical History: Asthma, Coronary Artery Disease (CAD), Diabetes Mellitus, Hyperlipidemia, Hypertension History of Any Multi-Drug Resistant Organisms: None Reported Past Surgical History: Heart Catheterization With Stent Past Anesthesia/Blood Transfusion Reactions: No Reported Reaction Date of Last Stent Placement:: 02/04/21 Past Psychological History: Depression, PTSD Past Alcohol Use History: None Reported Past Drug Use History: None Reported - Past Family History Father History Unknown: Yes Family Medical History: Coronary Artery Disease (CAD), Diabetes Mellitus Additional Family Medical History / Comment(s): hemophilia Mother Family Medical History: Diabetes Mellitus Medications and Allergies Home Medications Medication Instructions Recorded Confirmed Type Metoprolol Tartrate [Lopressor] 100 mg PO BID 10/31/19 03/08/22 History Pregabalin [Lyrica] 75 mg PO BID 10/31/19 03/08/22 History glipiZIDE [Glucotrol] 10 mg PO BID 02/04/21 03/08/22 History rOPINIRole HCL [Requip] 2 mg PO DAILY 02/04/21 03/08/22 History Furosemide [Lasix] 40 mg PO BID 03/08/22 03/08/22 History Nortriptyline [Pamelor] 25 mg PO HS 03/08/22 03/08/22 History Potassium Chloride ER [K-Dur 10] 10 meq PO BID 03/08/22 03/08/22 History amLODIPine [Norvasc] 5 mg PO DAILY 03/08/22 03/08/22 History metFORMIN HCL [Glucophage] 1,000 mg PO BID 03/08/22 03/08/22 History Allergies Allergy/AdvReac Type Severity Reaction Status Date / Time Iodinated Contrast Media AdvReac Unknown Verified 03/08/22 16:04 Physical Examination - Vital Signs Vital Signs: Vital Signs Temp Pulse Resp BP Pulse Ox 03/08/22 16:25 75 16 130/89 99 03/08/22 16:10 78 16 128/89 98 03/08/22 16:05 80 16 130/85 98 03/08/22 16:00 80 16 132/85 99 03/08/22 13:41 97.7 F 64 18 120/61 98 Intake and Output 03/08/22 03/08/22 03/08/22 06:59 14:59 22:59 Other: Weight 112 kg GENERAL: The patient is lying in bed and is not in acute distress. CHEST: The heart rate is regular rate rhythm. No murmurs to auscultation. No carotid bruit bilaterally. LUNG: Clear to auscultation bilaterally no wheezing noted throughout. Not labored breathing. ABDOMEN/GI: Bowel sounds present in all 4 quadrants. No tenderness to palpation throughout. NEUROLOGICAL: Higher mental function: The patient is awake, alert, oriented to self, place and time. Patient is following commands. No aphasia and no neglect. Cranial nerves: The pupils are round, equal and reactive to light and accommodation. Visual harden are full to confrontation throughout. Extraocular movement is intact no nystagmus is noted. Facial sensation is normal to touch throughout. The facial strength is normal throughout. Hearing is normal bilaterally to hand rub. Tongue is midline and moved [id number] without any difficulty. No dysarthria is noted. Shoulder shrug is normal bilaterally. Motor: The strength is right upper extremity is able to lift above gravity but otherwise is weak, atrophy with decrease tone (old). Otherwise 5 over 5 throughout. Cerebellum: Normal finger to nose heel left while limited on right. Sensation: Sensation is decreased over the right upper extremity (old). Otherwise normal throughout. Reflexes (right/left): 1+ right upper. Otherwise 2+ throughout Plantars are downgoing bilaterally. Results - Laboratory Findings CBC and BMP: 03/09/22 08:46 03/09/22 08:46 Abnormal Lab Findings: Abnormal Labs 03/08/22 03/08/22 03/08/22 13:48 13:51 13:51 WBC 11.9 H Hgb 12.6 L Neutrophils # 9.9 H APTT 17.9 L Sodium Chloride Carbon Dioxide Glucose POC Glucose (mg/dL) 528 H 03/08/22 03/08/22 13:51 15:15 WBC Hgb Neutrophils # APTT Sodium 130 L Chloride 96 L Carbon Dioxide 20 L Glucose 508 H* POC Glucose (mg/dL) 444 H Assessment and Plan Assessment: Episode of loss of consciousness/syncopal episode. Possible due uncontrolled diabetes (with sugar on presentation in 500's). Seizures seems unlikely Possible left left-sided weakness this transient: Possible tia Uncontrolled diabetes mellitus Suicidal ideation History of coronary artery disease status post stent Erbs palsy Plan: I ordered a routine EEG. I'll not start the patient on antiepileptic drug unless there is a performed discharges or seizure on the EEG. TSH: 0.702, ammonia level <9 I personally reviewed the CT of the head and I felt the patient's the ventricles throughout were dilated more than that his atrophy concerning for possibly NPH versus some other obstruction leading to the hydrocephalus. I ordered MRI of the brain with and without ED started the patient on aspirin 325 once. I started the patient on Lipitor 40 mg daily at bedtime. Continue her checks On cardiac monitoring 2-D echo was ordered as well as lipid panels ordered and is pending PT OT and RUNNER MAN are consulted We'll defer the rest of the medical management to primary team For DVT prophylaxis: Started on subq heparin 5000U every 8 hours. The plan is discussed with patient and his nurse. Thank you for the consultation. Nicanor Gee M.D. Neuro-hospitalist Time with Patient: Greater than 30
[2022-03-09 10:23] LABS: African American GFR (CKD) >90 (>60 ml/min/1.73 sqM); Anion Gap 12 mmol/L; Blood Urea Nitrogen 17 mg/dL (9-20); Carbon Dioxide 20 mmol/L (22-30); Chloride 102 mmol/L (98-107); Glucose 303 mg/dL (74-99); Magnesium 1.6 mg/dL (1.6-2.3); Non-African American GFR(CKD) 78 (>60 ml/min/1.73 sqM); Potassium 4.6 mmol/L (3.5-5.1); Sodium 134 mmol/L (137-145)
--- NOTE | 2022-03-09 12:40 | P.HPIM ---
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 He denies any seizure like activity, no chest pain However he felt a little short of breath for about a month with little cough but no phlegm and no chest pain. He denies any urinary symptoms no dysuria or urgency. No diarrhea or abdominal pain. No headache or weakness or numbness. He felt little disease. Currently he is sitting in chair looks comfortable. States that he follows up with his PCP Dr. Cee and his post to be on metformin and glipizide 10 mg daily however for the last 1 month he's been having worsening peripheral neuropathy in his legs and numbness ,he checked it on the Internet and decided to start taking double dose of glipizide 10 mg twice a day Instead of once daily. As a result here on out of his glipizide for the last 3 weeks, he had a glucometer at home but he cannot remember how as his sugar numbers, also he did not call or follow up with his PCP. He denies smoking, alcohol or illicit drugs Also patient wanted to see a psychiatrist because of depression and difficulties and stressors in his life including financial and house issues, possible suicidal thoughts He is hemodynamically stable and afebrile Hyperglycemic nonketotic state mild leukocytosis of 11.9, inr 0.9 tsh is 0.7 which is normal. Sodium 1:30, glucose elevated 508 and 528, liver enzymes not elevated. Troponin is negative was then 0.012 and ammonia is less than 9. Acetone is negative. EKG showing junctional rhythm at 64, no significant ST-T changes CT angiography of the brain: 60% stenosis of the right internal carotid artery Chest x-ray: No acute process, cardiomegaly CT of the brain no acute intracranial hemorrhage or midline shift. Cerebral atrophy.no significant change from prior Emergency room received normal saline, aspirin and insulin and steroids. Review of Systems Review of systems CONSTITUTIONAL: No fever, no malaise, no fatigue. HEENT: No recent visual problems or hearing problems. Denied any sore throat. CARDIOVASCULAR: No orthopnea, PND, no palpitations, no syncope. PULMONARY: No shortness of breath, no cough, no hemoptysis. GASTROINTESTINAL: No diarrhea, no nausea, no vomiting, no abdominal pain. Nor moactive bowel sounds. NEUROLOGICAL: No headaches, no weakness, no numbness. HEMATOLOGICAL: Denies any bleeding or petechiae. GENITOURINARY: Denies any burning micturition, frequency, or urgency. MUSCULOSKELETAL/RHEUMATOLOGICAL: Denies any joint pain, swelling, or any muscle pain. ENDOCRINE: Denies any polyuria or polydipsia. 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 History of Any Multi-Drug Resistant Organisms: None Reported Past Surgical History: Heart Catheterization With Stent Additional Past Surgical History / Comment(s): pt reports benign abdominal tumer removed "years ago" Past Anesthesia/Blood Transfusion Reactions: No Reported Reaction Date of Last Stent Placement:: 02/04/21 Past Psychological History: Depression, PTSD Past Alcohol Use History: None Reported Past Drug Use History: None Reported - Past Family History Father History Unknown: Yes Family Medical History: Coronary Artery Disease (CAD), Diabetes Mellitus Additional Family Medical History / Comment(s): hemophilia Mother Family Medical History: Diabetes Mellitus Medications and Allergies Home Medications Medication Instructions Recorded Confirmed Type Metoprolol Tartrate [Lopressor] 100 mg PO BID 10/31/19 03/08/22 History Pregabalin [Lyrica] 75 mg PO BID 10/31/19 03/08/22 History glipiZIDE [Glucotrol] 10 mg PO BID 02/04/21 03/08/22 History rOPINIRole HCL [Requip] 2 mg PO DAILY 02/04/21 03/08/22 History Furosemide [Lasix] 40 mg PO BID 03/08/22 03/08/22 History Nortriptyline [Pamelor] 25 mg PO HS 03/08/22 03/08/22 History Potassium Chloride ER [K-Dur 10] 10 meq PO BID 03/08/22 03/08/22 History amLODIPine [Norvasc] 5 mg PO DAILY 03/08/22 03/08/22 History metFORMIN HCL [Glucophage] 1,000 mg PO BID 03/08/22 03/08/22 History Allergies Allergy/AdvReac Type Severity Reaction Status Date / Time Iodinated Contrast Media AdvReac Unknown Verified 03/08/22 16:04 Physical Exam Vitals: Vital Signs Temp Pulse Pulse Resp BP BP Pulse Ox 03/09/22 04:00 98 F 81 17 152/72 97 03/09/22 00:00 98.2 F 77 17 154/74 96 03/08/22 20:25 84 18 136/61 97 03/08/22 18:30 74 18 124/85 03/08/22 18:00 73 18 146/74 03/08/22 17:30 73 18 143/114 03/08/22 17:00 72 18 103/67 03/08/22 16:30 70 18 137/70 03/08/22 16:25 75 16 130/89 99 03/08/22 16:19 97.8 F 81 15 163/78 98 03/08/22 16:10 78 16 128/89 98 03/08/22 16:05 80 16 130/85 98 03/08/22 16:00 68 18 122/100 89 L 03/08/22 15:30 130/69 03/08/22 15:00 63 15 103/75 97 03/08/22 14:30 126/67 95 03/08/22 14:06 97 03/08/22 13:51 65 18 03/08/22 13:41 97.7 F 64 18 120/61 98 Intake and Output 03/08/22 03/09/22 03/09/22 22:59 06:59 14:59 Intake Total 240 Balance 240 Intake: Oral 240 Other: # Voids 1 Weight 112 kg 66.5 kg GENERAL: The patient is alert and oriented x3, not in any acute distress. Well developed, well nourished. HEENT: Pupils are round and equally reacting to light. EOMI. No scleral icterus. No conjunctival pallor. Normocephalic, atraumatic. No pharyngeal erythema. No thyromegaly. CARDIOVASCULAR: S1 and S2 present. No murmurs, rubs, or gallops. PULMONARY: Chest is clear to auscultation, no wheezing or crackles. ABDOMEN: Soft, nontender, nondistended, normoactive bowel sounds. No palpable organomegaly. MUSCULOSKELETAL: No joint swelling or deformity. EXTREMITIES: No cyanosis, clubbing, or pedal edema. NEUROLOGICAL: Gross neurological examination did not reveal any focal deficits. SKIN: No rashes. no petechiae. Results CBC & Chem 7: 03/09/22 08:46 03/09/22 08:46 Labs: Abnormal Lab Results - Last 24 Hours (Table) 03/08/22 03/08/22 03/08/22 Range/Units 13:48 13:51 13:51 WBC 11.9 H (3.8-10.6) k/uL Hgb 12.6 L (13.0-17.5) gm/dL Neutrophils # 9.9 H (1.3-7.7) k/uL APTT 17.9 L (22.0-30.0) sec Sodium (137-145) mmol/L Chloride (98-107) mmol/L Carbon Dioxide (22-30) mmol/L Glucose (74-99) mg/dL POC Glucose (mg/dL) 528 H (75-99) mg/dL 03/08/22 03/08/22 03/08/22 Range/Units 13:51 15:15 17:47 WBC (3.8-10.6) k/uL Hgb (13.0-17.5) gm/dL Neutrophils # (1.3-7.7) k/uL APTT (22.0-30.0) sec Sodium 130 L (137-145) mmol/L Chloride 96 L (98-107) mmol/L Carbon Dioxide 20 L (22-30) mmol/L Glucose 508 H* (74-99) mg/dL POC Glucose (mg/dL) 444 H 464 H (75-99) mg/dL 03/08/22 03/09/22 03/09/22 Range/Units 21:06 02:01 06:08 WBC (3.8-10.6) k/uL Hgb (13.0-17.5) gm/dL Neutrophils # (1.3-7.7) k/uL APTT (22.0-30.0) sec Sodium (137-145) mmol/L Chloride (98-107) mmol/L Carbon Dioxide (22-30) mmol/L Glucose (74-99) mg/dL POC Glucose (mg/dL) 491 H 401 H 345 H (75-99) mg/dL 03/09/22 Range/Units 07:04 WBC (3.8-10.6) k/uL Hgb (13.0-17.5) gm/dL Neutrophils # (1.3-7.7) k/uL APTT (22.0-30.0) sec Sodium (137-145) mmol/L Chloride (98-107) mmol/L Carbon Dioxide (22-30) mmol/L Glucose (74-99) mg/dL POC Glucose (mg/dL) 282 H (75-99) mg/dL Thrombosis Risk Factor Assmnt - Choose All That Apply Any of the Below Risk Factors Present?: Yes Each Factor Represents 1 point: Medical pt on bed rest, Obesity (BMI >25) Each Risk Factor Represents 2 Points: Age 61-74 years Other congenital or acquired thrombophilia - If yes, enter type in comment: No Each Risk Factor Represents 5 Points: Stroke (< 1 month) Thrombosis Risk Factor Assessment Total Risk Factor Score: 9 Thrombosis Risk Factor Assessment Level: High Risk Assessment and Plan Assessment: Generalized weakness, more leg weakness suspicious for TIA. But mostly related to his dehydration, hyperglycemia Depression, history of PTSD, and a lot of stress, with possible suicidal ideation non-adherence to therapy dehydration Type 2 diabetes mellitus, with hyperglycemia, present on admission Junctional rhythm Hypertension Hyperlipidemia Diabetic nephropathy History of coronary artery disease status post stent placement Plan: This is a pleasant 67 years old male who presents with possible TIA, periods of unresponsiveness Continue with aspirin Send urine analysis Check orthostatic vitals Continue with aggressive hydration resume his metformin and glipizide 5 mg twice a day Check hemoglobin A1c Neurology consult Psychiatric consult, continue with sitter at bedside Labs and medication were reviewed.. Continue same treatment. Continue with symptomatic treatment. Resume home medication. Monitor lytes and vitals. DVT and GI prophylaxis. Further recommendationsas per clinical course of the patient DVT prophylaxis: Subcutaneous heparin GI Prophylaxis: Pepcid PT/OT: Pending Prognosis is guarded
[2022-03-09 12:43] LABS: Glucose,Whole Blood 241 mg/dL (75-99)
[2022-03-09 13:53] VITALS: BMI 22.3
--- NOTE | 2022-03-09 14:38 | EEG ---
ELECTROENCEPHALOGRAM REPORT DATE OF SERVICE: 03/09/2022. CLINICAL HISTORY: This is a 67-year-old gentleman with an episode of brief loss of consciousness that was witnessed. The video EEG is obtained to evaluate for seizure epileptiform activity. RELEVANT MEDICATION: The patient is not on any antiepileptic drugs. EEG TYPE: A routine 21-channel EEG is performed with video using the 10/20 electrode placement system. DESCRIPTION: Wakefulness and drowsiness were obtained. During awake state, the posterior- dominant rhythm consisted of low to moderate voltage of 8.5 to 9 hertz activity that is well modulated well sustained. There is no physiological stage II sleep architecture. There is no focal slowing. Interictal and ictal is none. ACTIVATION PROCEDURE: Photic stimulation did not evoke a posterior driving response. There is no abnormality during the photic stimulation. Hyperventilation is not performed. CLINICAL INTERPRETATION: This is a normal routine EEG. There is no focal slowing, epileptiform discharge or seizure on the EEG. Clinical correlation is recommended. RUBEN / AMISHAN: [id number] / MTDD
[2022-03-09 14:43] LABS: Chol/HDL Ratio 5.99 Ratio
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
--- NOTE | 2022-03-09 15:08 | MR ---
EXAMINATION TYPE: MR brain wo/w con DATE OF EXAM: 03/09/2022 COMPARISON: CT brain 03/08/2022 HISTORY: Altered mental status TECHNIQUE: Multiplanar, multisequence images of the brain and brainstem is performed without and with IV contras t, utilizing 11 mL intravenous Gadavist . FINDINGS: Fast brain protocol was utilized. Diffusion weighted images demonstrate no evidence of a recent infarct or other diffusion abnormality. There is no extra-axial fluid collection. Periventricular, confluent pericallosal, and subcortical hyperintensities on inversion recovery T2-weighted sequences are noted The ventricular system and ci sternal spaces are normal in size and appearance. The brain volume show similar appearance, there is cortical atrophy present. Midline structures demonstrate normal morphology. The craniocervical junction appears within normal limits. Post contrast images demonstrate no abnormal enhancement. The dural venous sinuses appear pa tent. The visualized sinuses are showing mild mucosal disease in the ethmoid air cells, and the globe s are intact. IMPRESSION: Probable age-related atrophy and chronic small vessel ischemic changes
[2022-03-09 16:46] LABS: Glucose,Whole Blood 199 mg/dL (75-99)
[2022-03-09 18:16] LABS: Appearance,Urine Clear (Clear); Bilirubin,Urine Negative (Negative); Blood,Urine Negative (Negative); Color,Urine Yellow; Glucose,Urine (UA) 4+ (Negative); Ketones,Urine Negative (Negative); Leukocyte Esterase,Urine Negative (Negative); Nitrite,Urine Negative (Negative); PH, Urine 5.5 (5.0-8.0); Protein,Urine Trace (Negative); Specific Gravity,Urine 1.033 (1.001-1.035); Urobilinogen,Urine <2.0 mg/dL (<2.0)
--- NOTE | 2022-03-09 18:49 | CA ---
Transthoracic Echo Report Name: Michael Wang Age: 67 Gender: M : 1955 Exam Date: 03/09/2022 07:32 Exam Location: [facility] Ht (in): 68 Wt (lb): 250 Ordering Physician: Anthony Brar DO Attending/Referring Phys: [employer] Internet Sales Consultant Yahaira Morgan RDCS Procedure CPT: Indications: Thrombus Cardiac Hx: Technical Quality: Fair Contrast 1: Total Dose (mL): Contrast 2: Total Dose (mL): MEASUREMENTS (Male / Female) Normal Values 2D ECHO LV Diastolic Diameter PLAX 4.3 cm 4.2 - 5.9 / 3.9 - 5.3 cm LV Systolic Diameter PLAX 2.9 cm IVS Diastolic Thickness 1.4 cm 0.6 - 1.0 / 0.6 - 0.9 cm LVPW Diastolic Thickness 1.3 cm 0.6 - 1.0 / 0.6 - 0.9 cm LV Relative Wall Thickness 0.6 RV Internal Dim ED PLAX 2.9 cm LA Systolic Diameter LX 3.5 cm 3.0 - 4.0 / 2.7 - 3.8 cm LA Volume 57.6 cm??? 18 - 58 / 22 - 52 cm??? M-MODE Aortic Root Diameter MM 3.9 cm MV E Point Septal Separation 0.3 cm AV Cusp Separation MM 2.4 cm DOPPLER AV Peak Velocity 155.1 cm/s AV Peak Gradient 9.6 mmHg MV Area PHT 3.3 cm??? Mitral E Point Velocity 145.0 cm/s Mitral A Point Velocity 119.2 cm/s Mitral E to A Ratio 1.2 MV Deceleration Time 230.8 ms MV E' Velocity 7.8 cm/s Mitral E to MV E' Ratio 18.5 TR Peak Velocity 283.7 cm/s TR Peak Gradient 32.2 mmHg Right Ventricular Systolic Press 37.2 mmHg FINDINGS Left Ventricle Left ventricular ejection fraction is estimated at 55-60 %. Left ventricular cavity size normal. Moderate concentric left ventricular hypertrophy. Right Ventricle Normal right ventricular size. Mild pulmonary hypertension. Right Atrium Normal right atrial size. Left Atrium Normal left atrial size. No evidence for an atrial septal defect. Mitral Valve Mitral annular calcification. Trace to mild mitral regurgitation. Aortic Valve Trileaflet aortic valve. No aortic valve stenosis or regurgitation. Tricuspid Valve Mild tricuspid regurgitation. Pulmonic Valve Structurally normal pulmonic valve. Pericardium Normal pericardium. Aorta Mild aortic dilatation at the level of the sinuses of valsalva (root). CONCLUSIONS Left ventricular hypertrophy with preserved LV systolic function No intracardiac mass Previewed by: Dr. Jaylen Garcia MD (Electronically Signed) Final Date: 09 Mar 2022 18:48
[2022-03-09 19:34] LABS: Glucose,Whole Blood 190 mg/dL (75-99)
[2022-03-09] MEDS: FAMOTIDINE 20 MG/2 ML VIAL IV SCH (19:55)
[2022-03-09] MEDS: ATORVASTATIN 40 MG TAB PO SCH (19:57)
[2022-03-09] MEDS ORDERED: INSULIN ASPART (NovoLOG) 100 UNIT/ML VIAL SQ SCH (21:12)
[2022-03-09] MEDS ORDERED: HYDROCORTISONE 1% CREAM 30 GM TUBE TOPICAL PRN (21:28)
[2022-03-10] MEDS: SODIUM CHLORIDE 0.9% 1,000 ML IV SCH ×3 (01:20→23:23)
[2022-03-10 02:29] LABS: Glucose,Whole Blood 154 mg/dL (75-99)
[2022-03-10 07:09] LABS: Glucose,Whole Blood 149 mg/dL (75-99)
[2022-03-10] MEDS: INSULIN DETEMIR (LEVEMIR) 100 UNIT/ML SYR SQ SCH (07:12)
[2022-03-10] MEDS: INSULIN ASPART (NovoLOG) 100 UNIT/ML VIAL SQ SCH ×7 (07:13→19:58)
[2022-03-10] MEDS: metFORMIN 500 MG TAB PO SCH ×2 (07:14→18:31)
[2022-03-10] MEDS: glipiZIDE 5 MG TAB PO SCH (07:14)
[2022-03-10] MEDS: ASPIRIN 325 MG TAB PO SCH (08:55)
[2022-03-10] MEDS: PREGABALIN 75 MG CAP PO SCH ×2 (08:55→20:03)
[2022-03-10] MEDS: METOPROLOL TARTRATE 50 MG TAB PO SCH ×2 (08:55→19:56)
[2022-03-10] MEDS: FAMOTIDINE 20 MG/2 ML VIAL IV SCH ×2 (08:55→19:55)
[2022-03-10] MEDS: HEPARIN SODIUM,PORCINE/PF 5,000 UNIT/0.5 ML SYRINGE SQ SCH ×3 (08:55→23:22)
[2022-03-10 09:44] LABS: Basophils # (A) 0.1 k/uL (0-0.2); Basophils % (A) 0 %; Eosinophils # (A) 0.1 k/uL (0-0.7); Eosinophils % (A) 1 %; HCT 39.8 % (39.0-53.0); HGB 12.4 gm/dL (13.0-17.5); Hypochromasia Slight; Lymphocytes # (A) 1.9 k/uL (1.0-4.8); Lymphocytes % (A) 16 %; MCH 27.9 pg (25.0-35.0); MCHC 31.1 g/dL (31.0-37.0); MCV 89.9 fL (80.0-100.0); Mean Platelet Volume 7.6; Monocytes # (A) 0.5 k/uL (0-1.0); Monocytes % (A) 4 %; Neutrophils # (A) 9.4 k/uL (1.3-7.7); Neutrophils % (A) 78 %; Platelet Count 325 k/uL (150-450); RBC 4.43 m/uL (4.30-5.90); RDW 14.8 % (11.5-15.5); WBC 12.1 k/uL (3.8-10.6)
[2022-03-10 10:07] LABS: African American GFR (CKD) >90 (>60 ml/min/1.73 sqM); Anion Gap 10 mmol/L; Blood Urea Nitrogen 17 mg/dL (9-20); Calcium 8.3 mg/dL (8.4-10.2); Carbon Dioxide 17 mmol/L (22-30); Chloride 109 mmol/L (98-107); Glucose 229 mg/dL (74-99); Magnesium 1.5 mg/dL (1.6-2.3); Non-African American GFR(CKD) 82 (>60 ml/min/1.73 sqM); Sodium 136 mmol/L (137-145)
[2022-03-10 10:11] LABS: Potassium 4.4 mmol/L (3.5-5.1)
[2022-03-10] MEDS ORDERED: MAGNESIUM SULFATE-D5W PMX 1 GM in DEXTROSE/WATER 1 100ML.BAG IVPB ONE (11:11)
[2022-03-10 11:50] LABS: Glucose,Whole Blood 229 mg/dL (75-99)
[2022-03-10 13:17] LABS: Glucose,Whole Blood 290 mg/dL (75-99)
--- NOTE | 2022-03-10 13:52 | P.PN ---
Progress Note - Text Progress Note Date: 03/10/22 Interval History: Patient was seen resting in bed and was directable and agreeable to speak with engineering technical writer in his room. Present in the room is his safety attendant. Currently, the patient is not reporting any medical concerns or issues at this time. He continues to report depressive symptoms however states that his depression has mildly improved after getting in touch with a few of his friends. The patient does express concerns about his pending homelessness. He reports that he would likely have to stay with a friend in the interim. He continues to acknowledge that he did attempt to kill himself by overdosing on his blood pressure medication a few days prior to this admission. He states that he is willing to sign himself voluntarily on the psychiatric unit. He is reporting some difficulty with sleep but denies any issues regarding his appetite. He reports no auditory or visual hallucinations. He denies any paranoia or other delusions. He is currently not open with any outpatient psychiatric services. Mental Status Exam: General Appearance: Patient appears to be stated age is alert, directable, and cooperative. Behavior: Patient is calmly seated without any agitated behavior. Speech: Patient's speech is fluent and nonpressured. Mood/Affect: Mood is improving mildly, affect is congruent and constricted. Suicidality/Homicidality: Patient denies any current suicidal or homicidal ideation. Perceptions: Patient denies any visual hallucinations and denies any auditory hallucinations Though content/process: There is no evidence of any delusional thought content and thought process is linear and goal-directed. Memory and concentration: AOX3, grossly intact for the purposes of this session Judgment and insight: Improving mildly Vital Signs Temp 98.4 F 03/10/22 08:00 Pulse 74 03/10/22 08:00 Resp 18 03/10/22 08:00 BP 151/75 03/10/22 08:00 Pulse Ox 99 03/10/22 08:00 FiO2 Intake & Output 03/09/22 03/10/22 03/10/22 18:59 06:59 18:59 Intake Total 780 240 Output Total 1100 Balance 780 -860 Weight 66.5 kg 66.5 kg Intake: Oral 780 240 Output: Urine 1100 Other: Voiding Method Toilet Toilet Urinal # Voids 2 1 Laboratory Results - Last 24 Hours 03/09/22 03/09/2203/09/22 08:46 08:46 16:04 WBC RBC Hgb Hct MCV MCH MCHC RDW Plt Count MPV Neutrophils % Lymphocytes % Monocytes % Eosinophils % Basophils % Neutrophils # Lymphocytes # Monocytes # Eosinophils # Basophils # Hypochromasia Sodium Potassium Chloride Carbon Dioxide Anion Gap BUN Creatinine Est GFR (CKD-EPI)AfAm Est GFR (CKD-EPI)NonAf Glucose POC Glucose (mg/dL) POC Glu Industrial Engineering Intern ID [address] Glu mg/dL 301 Hemoglobin A1c 12.1 H Calcium Magnesium Triglycerides 173.00 H Cholesterol 182.00 LDL Cholesterol, Calc 117.0 VLDL Cholesterol, Calc 34.60 HDL Cholesterol 30.40 L Cholesterol/HDL Ratio 5.99 Urine Color Yellow Urine Appearance Clear Urine pH 5.5 Ur Specific [place] 1.033 Urine Protein Trace H Urine Glucose (UA) 4+ H Urine Ketones Negative Urine Blood Negative Urine Nitrite Negative Urine Bilirubin Negative Urine Urobilinogen <2.0 Ur Leukocyte Esterase Negative 03/09/22 03/09/22 03/10/22 16:43 19:33 02:26 WBC RBC Hgb Hct MCV MCH MCHC RDW Plt Count MPV Neutrophils % Lymphocytes % Monocytes % Eosinophils % Basophils % Neutrophils # Lymphocytes # Monocytes # Eosinophils # Basophils # Hypochromasia Sodium Potassium Chloride Carbon Dioxide Anion Gap BUN Creatinine Est GFR (CKD-EPI)AfAm Est GFR (CKD-EPI)NonAf Glucose POC Glucose (mg/dL) 199 H 190 H 154 H POC Glu Industrial Engineering Intern ID HowardEna, Jaison Osborne, Jaison [address] Glu mg/dL Hemoglobin A1c Calcium Magnesium Triglycerides Cholesterol LDL Cholesterol, Calc VLDL Cholesterol, Calc HDL Cholesterol Cholesterol/HDL Ratio Urine Color Urine Appearance Urine pH Ur Specific [place] Urine Protein Urine Glucose (UA) Urine Ketones Urine Blood Urine Nitrite Urine Bilirubin Urine Urobilinogen Ur Leukocyte Esterase 03/10/22 03/10/22 03/10/22 07:07 08:21 08:21 WBC 12.1 H RBC 4.43 Hgb 12.4 L Hct 39.8 MCV 89.9 MCH 27.9 MCHC 31.1 RDW 14.8 Plt Count 325 MPV 7.6 Neutrophils % 78 Lymphocytes % 16 Monocytes % 4 Eosinophils % 1 Basophils % 0 Neutrophils # 9.4 H Lymphocytes # 1.9 Monocytes # 0.5 Eosinophils # 0.1 Basophils # 0.1 Hypochromasia Slight Sodium 136 L Potassium 4.4 Chloride 109 H Carbon Dioxide 17 L Anion Gap 10 BUN 17 Creatinine 0.96 Est GFR (CKD-EPI)AfAm >90 Est GFR (CKD-EPI)NonAf 82 Glucose 229 H POC Glucose (mg/dL) 149 H POC Glu Industrial Engineering Intern ID Kenisha Bui [address] Glu mg/dL Hemoglobin A1c Calcium 8.3 L Magnesium 1.5 L Triglycerides Cholesterol LDL Cholesterol, Calc VLDL Cholesterol, Calc HDL Cholesterol Cholesterol/HDL Ratio Urine Color Urine Appearance Urine pH Ur Specific [place] Urine Protein Urine Glucose (UA) Urine Ketones Urine Blood Urine Nitrite Urine Bilirubin Urine Urobilinogen Ur Leukocyte Esterase 03/10/22 03/10/22 11:49 13:12 WBC RBC Hgb Hct MCV MCH MCHC RDW Plt Count MPV Neutrophils % Lymphocytes % Monocytes % Eosinophils % Basophils % Neutrophils # Lymphocytes # Monocytes # Eosinophils # Basophils # Hypochromasia Sodium Potassium Chloride Carbon Dioxide Anion Gap BUN Creatinine Est GFR (CKD-EPI)AfAm Est GFR (CKD-EPI)NonAf Glucose POC Glucose (mg/dL) 229 H 290 H POC Glu Industrial Engineering Intern ID Guillermina Donaldson Mallory [address] Glu mg/dL Hemoglobin A1c Calcium Magnesium Triglycerides Cholesterol LDL Cholesterol, Calc VLDL Cholesterol, Calc HDL Cholesterol Cholesterol/HDL Ratio Urine Color Urine Appearance Urine pH Ur Specific [place] Urine Protein Urine Glucose (UA) Urine Ketones Urine Blood Urine Nitrite Urine Bilirubin Urine Urobilinogen Ur Leukocyte Esterase Assessment Major depressive disorder, recurrent, severe Posttraumatic stress disorder Type 2 diabetes mellitus Hyperlipidemia Hypertension Generalized weakness Plan: -At this time patient DOES meet criteria for inpatient psychiatric admission. Once medically stable and cleared, and that the patient is transferred to the psychiatric unit. Patient states that he is willing to sign himself voluntarily to the psychiatric unit. -Would recommend the following medication changes/additions: Continue to hold nortriptyline at this time. Once medically stable, we will look at restarting psychotropic medications. -Continue 1:1 sitter for safety -Cannot leave AMA at this time. Patient will need a petition and certification if attempting to leave AMA. -Psychiatry will sign off at this time. -When medically stable, patient is eligible for transfer to a psych bed when available.
[2022-03-10 16:44] LABS: Glucose,Whole Blood 182 mg/dL (75-99)
[2022-03-10 19:55] LABS: Glucose,Whole Blood 226 mg/dL (75-99)
[2022-03-10] MEDS: ATORVASTATIN 40 MG TAB PO SCH (19:57)
[2022-03-10 21:43] VITALS: RESP 16
--- NOTE | 2022-03-11 00:14 | P.DS ---
Providers Date of admission: 03/08/22 16:07 Attending physician: Gris Paul Consults: 03/08/22 16:07 Consult Physician Urgent Consulting Provider: Nicanor Gee Consult Reason/Comments: tia, syncope Do you want consulting provider notified?: Yes 03/09/22 06:31 Consult Physician Urgent Consulting Provider: Asael Vila Reason/Comments: suicidial ideations Do you want consulting provider notified?: Already Contacted Primary care physician: Cecilio Ford Hospital Course: Diagnoses: Generalized weakness, mostly related to his dehydration, hyperglycemia. 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 He denies any seizure like activity, no chest pain Patient also was not adherent to his diabetes medication, he was in metformin while he ran out of glipizide for 3 weeks, A1c on admission was 12%. Patient resumed his home dose of metformin and glipizide 5 mg twice a day and he was started on insulin 15 units of Levemir plus NovoLog 15 units 3 times a day before meals area patient informed and staff taught him how to inject insulin. Patient evaluated by neurologist and he is back to baseline. He is been evaluated by neurologist, MRI of the brain and EEG were negative and patient was cleared for discharge by neurologist on aspirin 81 mg daily, which would help with his primary prevention as he is diabetic and risk for vascular disease. Patient denies chest pain, no dyspnea. No abdominal pain. No change in urine or bowel habits. No fever. Patient states he is back to baseline and is agreeable to go to psych unit Patient evaluated by psychiatrist and recommended transfer to psych unit for depression and suicidal ideation, sitter at bedside. Patient told me he is agreeable to go to mental health unit this morning. Patient was cleared for discharge by neurologist and psychiatrist Problems and management plan were discussed with the patient and he verbalized understanding and acceptance Patient was found stable and can be discharged home however he needs follow-up as an outpatient. Patient was instructed to follow up with PCP Dr. Cee within one week and patient agrees Patient was instructed to follow up with the neurologist Dr. Arcos in one week and tool sharpener Dr. eli or dr reyes in one to two weeks after discharge and he agrees to call and make appointment Physical exam Gen: patient is a AAOx3, no distress CVS: S1-S2, RRR, no murmur Lungs: B/L CTA, no wheezing Abdomen: soft, no distention, no tenderness, positive bowel sounds Extremity: no leg edema or induration Time spent more than 35 minutes Plan - Discharge Summary Discharge Rx Participant: No New Discharge Prescriptions: New Hydrocortisone Cream [Hydrocortisone 1% Cream] 1 applic TOPICAL BID PRN 5 Days each PRN Reason: Skin Irritation Insulin Detemir (Levemir) [Levemir] 15 unit SQ DAILY@0700 #10 ml INSULIN ASPART (NovoLOG) [NovoLOG (formulary)] 15 unit SQ AC-TID #10 ml Aspirin 81 mg PO DAILY #30 tab glipiZIDE [Glucotrol] 5 mg PO BID #60 tab Atorvastatin [Lipitor] 40 mg PO HS #30 tab Continue Pregabalin [Lyrica] 75 mg PO BID Metoprolol Tartrate [Lopressor] 100 mg PO BID rOPINIRole HCL [Requip] 2 mg PO DAILY Nortriptyline [Pamelor] 25 mg PO HS Furosemide [Lasix] 40 mg PO BID metFORMIN HCL [Glucophage] 1,000 mg PO BID #60 tab Potassium Chloride ER [K-Dur 10] 10 meq PO BID amLODIPine [Norvasc] 5 mg PO DAILY Discontinued glipiZIDE [Glucotrol] 10 mg PO BID Discharge Medication List Metoprolol Tartrate [Lopressor] 100 mg PO BID 01/15/20 [History] Pregabalin [Lyrica] 75 mg PO BID 10/31/19 [History] rOPINIRole HCL [Requip] 2 mg PO DAILY 02/04/21 [History] Furosemide [Lasix] 40 mg PO BID 03/08/22 [History] Nortriptyline [Pamelor] 25 mg PO HS 03/08/22 [History] Potassium Chloride ER [K-Dur 10] 10 meq PO BID 03/08/22 [History] amLODIPine [Norvasc] 5 mg PO DAILY 03/08/22 [History] Aspirin 81 mg PO DAILY #30 tab 03/10/22 [Rx] Atorvastatin [Lipitor] 40 mg PO HS #30 tab 03/10/22 [Rx] Hydrocortisone Cream [Hydrocortisone 1% Cream] 1 applic TOPICAL BID PRN 5 Days each 03/10/22 [Rx] INSULIN ASPART (NovoLOG) [NovoLOG (formulary)] 15 unit SQ AC-TID #10 ml 03/10/22 [Rx] Insulin Detemir (Levemir) [Levemir] 15 unit SQ DAILY@0700 #10 ml 03/10/22 [Rx] glipiZIDE [Glucotrol] 5 mg PO BID #60 tab 03/10/22 [Rx] metFORMIN HCL [Glucophage] 1,000 mg PO BID #60 tab 03/10/22 [Rx] Follow up Appointment(s)/Referral(s): Logan Hernandes MD [Primary Care Provider] - 1-2 days Hao Eli MD [REFERRING] - 10 Days (Biostatistics Teacher) Amos Arcos MD [Medical Doctor] - 1 Week (neurologist) Jana Hagan MD [STAFF PHYSICIAN] - 10 Days (Biostatistics Teacher) Activity/Diet/Wound Care/Special Instructions: Consistent carbohydrate diet 1800 kcal per day Activity is restricted till you see your doctor We recommend to check your blood glucose 4 times a day, before each meal and at bedtime, deep to the results in a log book and ventricular doctor on your appointment date If her glucose less than 70 or more than 400, then call 911 on come to emergency room Discharge Disposition: TRANSFER TO PSYCH HOSP/UNIT
[2022-03-11 00:26] VITALS: BP 122/68; PULSE 69; TEMP 98.2
[2022-03-11] MEDS ORDERED: glipiZIDE 5 MG TAB PO SCH (07:30)
[2022-03-11] MEDS ORDERED: FUROSEMIDE 40 MG TAB PO SCH (09:00)
== END 2022-03-11 01:08 | DRG 638 ==
LOC: EC 13:39 → 3SCARD 16:07
PROVIDERS: ADMIT Hospitalist; ATTEND Hospitalist
DX: E11.65 Type 2 diabetes mellitus with hyperglycemia (principal); F33.2 Major depressive disorder, recurrent severe without psychotic features; R45.851 Suicidal ideations; G91.9 Hydrocephalus, unspecified; E11.21 Type 2 diabetes mellitus with diabetic nephropathy; D72.829 Elevated white blood cell count, unspecified; E78.5 Hyperlipidemia, unspecified; E86.0 Dehydration; F43.10 Post-traumatic stress disorder, unspecified; G89.29 Other chronic pain; I10 Essential (primary) hypertension; I25.10 Atherosclerotic heart disease of native coronary artery without angina pectoris; J45.909 Unspecified asthma, uncomplicated; P14.0 Erb's paralysis due to birth injury; I65.21 Occlusion and stenosis of right carotid artery; E11.42 Type 2 diabetes mellitus with diabetic polyneuropathy; Z20.822 Contact with and (suspected) exposure to COVID-19; Z28.310 Unvaccinated for COVID-19; Z79.02 Long term (current) use of antithrombotics/antiplatelets; Z79.4 Long term (current) use of insulin; Z79.82 Long term (current) use of aspirin; Z79.84 Long term (current) use of oral hypoglycemic drugs; Z79.899 Other long term (current) drug therapy; Z82.49 Family history of ischemic heart disease and other diseases of the circulatory system; Z83.3 Family history of diabetes mellitus; Z86.73 Personal history of transient ischemic attack (TIA), and cerebral infarction without residual deficits; Z95.5 Presence of coronary angioplasty implant and graft; Z83.2 Family history of diseases of the blood and blood-forming organs and certain disorders involving the immune mechanism; Z86.69 Personal history of other diseases of the nervous system and sense organs; Z91.14 Patient's other noncompliance with medication regimen; Z91.041 Radiographic dye allergy status
CPT/HCPCS: 32551; 36415; 70450; 70496; 70498; 70553; 71046; 80048; 80053; 80061; 81003; 82009; 82140; 83036; 83735; 84443; 84484; 85025; 85610; 85730; 87635; 93005; 93306; 95819; 96361; 96374; 96375; 99151; 99285

== ENCOUNTER 2022-03-11 00:54 | Inpatient (IN) | payer MEDICARE, MEDICAID ==
[2022-03-11] MEDS ORDERED: MAGNESIUM HYDROXIDE 2,400 MG/10 ML CUP PO PRN (01:39)
[2022-03-11] MEDS ORDERED: MAG HYDROX/AL HYDROX/SIMETH 30 ML CUP PO PRN (01:39)
[2022-03-11] MEDS ORDERED: LORazepam 1 MG TAB PO PRN (01:39)
[2022-03-11] MEDS ORDERED: LORazepam 2 MG/ML INJ IM PRN (01:42)
[2022-03-11 07:52] LABS: Glucose,Whole Blood 154 mg/dL (75-99)
[2022-03-11] MEDS: INSULIN ASPART (NovoLOG) 100 UNIT/ML VIAL SQ SCH (08:06)
[2022-03-11] MEDS: INSULIN DETEMIR (LEVEMIR) 100 UNIT/ML SYR SQ SCH (08:07)
[2022-03-11] MEDS: PREGABALIN 75 MG CAP PO SCH ×2 (08:08→21:23)
[2022-03-11] MEDS: metFORMIN 500 MG TAB PO SCH ×2 (08:08→21:23)
[2022-03-11] MEDS: METOPROLOL TARTRATE 50 MG TAB PO SCH ×2 (08:09→21:23)
[2022-03-11] MEDS: POTASSIUM CHLORIDE ER 10 MEQ TAB.ER.PRT PO SCH ×2 (08:09→21:23)
[2022-03-11] MEDS: amLODIPine 5 MG TAB PO SCH (08:11)
[2022-03-11] MEDS: ASPIRIN 81 MG PO SCH (08:12)
[2022-03-11] MEDS: FUROSEMIDE 40 MG TAB PO SCH ×2 (08:12→21:24)
[2022-03-11] MEDS ORDERED: NICOTINE 14MG/24HR PATCH TRANSDERM SCH (09:00)
[2022-03-11] MEDS ORDERED: glipiZIDE 5 MG TAB PO SCH (09:00)
--- NOTE | 2022-03-11 14:42 | P.HP ---
Psychiatric H&P - . H&P Date: 03/11/22 History & Physical: Allergies Allergy/AdvReac Type Severity Reaction Status Date / Time Iodinated Contrast Media AdvReac Unknown Verified 03/08/22 16:04 Vital Signs Temp 96.9 F L 03/11/22 01:41 Pulse 77 03/11/22 08:00 Resp 18 03/11/22 01:41 BP 136/62 03/11/22 08:00 Pulse Ox FiO2 Intake & Output 03/10/22 03/11/22 03/11/22 18:59 06:59 18:59 Weight 114.4 kg Laboratory Last Values POC Glucose (mg/dL) 154 mg/dL (75-99) H 03/11/22 07:49 POC Glu Child Protection Specialist ID Richardson Lomas 03/11/22 07:49 03/11/22 11:24 IDENTIFYING DATA: Patient is a 67-year-old male who is recently evicted from his apartment, single, no kids, collects Social Security. HPI: Patient presented to the hospital after an overdose on blood pressure medications. Patient was seen wandering the hallways and agreeable to speak to read her today in the office. Patient claims that he was feeling depressed and described anhedonia. He states that he has been having financial difficulties lately and recently has been evicted from his apartment. He claims that he was not able to gather all of his belongings from the apartment. He states that he overdosed on 30 tablets of his blood pressure medications and then went to [facility]. He claims that at [facility] he claims that "my legs gave out on me". He states that they called the ambulance to take him to the hospital. He states that "life has become such a struggle for me" and described losing his family however still has some friends left. He continues to endorse depression, hopelessness and also anxiety. He states that he is sleeping fairly at nighttime and fair appetite. Patient denies any current suicidal or homicidal ideations intent or plan. At this time patient denies any auditory or visual hallucinations. Patient denies any flight of ideas racing thoughts and increased in goal directed behavior. Patient admits to using now recreational drugs or cigarettes PAST PSYCHIATRIC HISTORY: Patient states that he has a history of depression and anxiety. He claims that he was previously on Prozac several years ago. [Patient denies any previous psychiatric hospitalizations.] [Patient denies any psychiatric outpatient follow-up.] [Patient denies any history of suicide attempts in the past.] PMH: As per medicine H&P. ALLERGIES: as per EMR CHEMICAL DEPENDENCY HISTORY: as per HPI FAMILY PSYCHIATRIC/SUBSTANCE USE HISTORY: Claims that his father had depression and anxiety. SOCIAL HISTORY: Patient was born and raised in [facility]. He states that he completed 2 years of college and high school. 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 He states that he is single and has no kids and collects Social Security. MENTAL STATUS EXAM: General Appearance: Patient appears to be obese, wearing glasses, stated age is alert, [directable, and attempts to cooperate]. Patient appears to have fair hygiene and grooming. Behavior: Patient is seated without any agitated behavior. [] Speech: Patient's speech is [fluent and nonpressured.] Mood/Affect: Patient reports their mood is [depressed], affect is congruent and constricted. Suicidality/Homicidality: Patient denies having any homicidal ideation intent or plan. [Denies any suicidal ideations intent or plan] Perceptions: Patient denies any visual hallucinations [and denies any auditory h allucinations] Though content/process: [There is no evidence of any delusional thought content and thought process is linear and goal-directed.] Rambles at times. Memory and concentration: AOX3, grossly intact for the purposes of this session. Can spell "WORLD" backwards Judgment and insight: Fair STRENGTHS/WEAKNESSES: strength is that patient is [resilient]. Weakness is that patient [has poor judgment and is impulsive] INTELLECT: [average] IMPRESSIONS: Major depressive disorder, without psychotic features Homelessness, financial difficulties PLAN: -Patient is admitted under [voluntary] status to MHU for stabilization of psychiatric symptoms and safety. Patient has signed [adult voluntary form and] [medication consent] and is placed in patient's chart. -Medications : Will start patient on Cymbalta 30 mg daily for mood/anxiety, insomnia 3 mg daily at bedtime for insomnia. -Ativan [and Haldol] PRN for agitation/aggression -Patient was informed of the risks, benefits and side effects of the medication and patient verbally consented to taking the medications. Patient signed med consent form and was placed in chart. -Internal Medicine consult to perform medical evaluation and physical. -NRT - not needed as patient does not smoke. -SW on board for discharge planning. Encourage patient to participate in groups to work on coping skills. 03/11/22 11:39
[2022-03-11 14:54] LABS: Glucose,Whole Blood 117 mg/dL (75-99)
[2022-03-11] MEDS: DULoxetine HCL 30 MG CAPSULE.DR PO SCH (15:49)
[2022-03-11 17:46] LABS: Glucose,Whole Blood 98 mg/dL (75-99)
[2022-03-11 18:26] LABS: Glucose,Whole Blood 160 mg/dL (75-99)
[2022-03-11 20:00] LABS: Glucose,Whole Blood 230 mg/dL (75-99)
[2022-03-11] MEDS ORDERED: NORTRIPTYLINE 25 MG CAP PO SCH (21:00)
[2022-03-11] MEDS ORDERED: MELATONIN 3 MG TABLET PO SCH (21:00)
[2022-03-11] MEDS: ATORVASTATIN 40 MG TAB PO SCH (21:23)
[2022-03-12] MEDS: INSULIN DETEMIR (LEVEMIR) 100 UNIT/ML SYR SQ SCH ×2 (07:48→08:10)
[2022-03-12 07:49] LABS: Glucose,Whole Blood 265 mg/dL (75-99)
[2022-03-12] MEDS: INSULIN ASPART (NovoLOG) 100 UNIT/ML VIAL SQ SCH ×4 (07:49→18:12)
[2022-03-12] MEDS: glipiZIDE 5 MG TAB PO SCH (08:15)
[2022-03-12] MEDS: DULoxetine HCL 30 MG CAPSULE.DR PO SCH (08:15)
[2022-03-12] MEDS: amLODIPine 5 MG TAB PO SCH (08:15)
[2022-03-12] MEDS: metFORMIN 500 MG TAB PO SCH ×2 (08:15→21:37)
[2022-03-12] MEDS: ASPIRIN 81 MG PO SCH (08:15)
[2022-03-12] MEDS: FUROSEMIDE 40 MG TAB PO SCH ×2 (08:15→21:37)
[2022-03-12] MEDS: METOPROLOL TARTRATE 50 MG TAB PO SCH ×2 (08:16→21:37)
[2022-03-12] MEDS: PREGABALIN 75 MG CAP PO SCH ×2 (08:16→21:37)
[2022-03-12] MEDS: POTASSIUM CHLORIDE ER 10 MEQ TAB.ER.PRT PO SCH ×2 (08:16→21:38)
--- NOTE | 2022-03-12 08:27 | P.CONS ---
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 He denies any seizure like activity, no chest pain Patient also was not adherent to his diabetes medication, he was in metformin while he ran out of glipizide for 3 weeks, A1c on admission was 12%. Patient resumed his home dose of metformin and glipizide 5 mg twice a day and he was started on insulin 15 units of Levemir plus NovoLog 15 units 3 times a day before meals area patient informed and staff taught him how to inject insulin. Patient evaluated by neurologist and he is back to baseline. He is been evaluated by neurologist, MRI of the brain and EEG were negative and patient was cleared for discharge by neurologist on aspirin 81 mg daily, which would help with his primary prevention as he is diabetic and risk for vascular disease. Patient denies chest pain, no dyspnea. No abdominal pain. No change in urine or bowel habits. No fever. Patient states he is back to physical baseline , however he still been treated for his mental illness. His main complaint is a swelling in his leg and he requests his Lasix once daily to be increased to twice a day which is already changed by primary team. Also his glucose was low normal 117 and 98, therefore we will lower his glipizide 5 mg twice a day in 25 mg daily and also we will lower his NovoLog 15 units into 10 units but if develop hyperglycemia later on dose may be adjusted as well. Review of Systems Review of systems CONSTITUTIONAL: No fever, no malaise, no fatigue. HEENT: No recent visual problems or hearing problems. Denied any sore throat. CARDIOVASCULAR: No orthopnea, PND, no palpitations, no syncope. PULMONARY: No shortness of breath, no cough, no hemoptysis. GASTROINTESTINAL: No diarrhea, no nausea, no vomiting, no abdominal pain. Normoactive bowel sounds. NEUROLOGICAL: No headaches, no weakness, no numbness. HEMATOLOGICAL: Denies any bleeding or petechiae. GENITOURINARY: Denies any burning micturition, frequency, or urgency. MUSCULOSKELETAL/RHEUMATOLOGICAL: Denies any joint pain, swelling, or any muscle pain. ENDOCRINE: Denies any polyuria or polydipsia. 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 History of Any Multi-Drug Resistant Organisms: None Reported Past Surgical History: Heart Catheterization With Stent Additional Past Surgical History / Comment(s): pt reports benign abdominal tumer removed "years ago" Past Anesthesia/Blood Transfusion Reactions: No Reported Reaction Date of Last Stent Placement:: 02/04/21 Past Psychological History: Depression, PTSD Past Alcohol Use History: None Reported Past Drug Use History: None Reported - Past Family History Father History Unknown: Yes Family Medical History: Coronary Artery Disease (CAD), Diabetes Mellitus Additional Family Medical History / Comment(s): hemophilia Mother Family Medical History: Diabetes Mellitus Medications and Allergies Home Medications Medication Instructions Recorded Confirmed Type Metoprolol Tartrate [Lopressor] 100 mg PO BID 10/31/19 03/08/22 History Pregabalin [Lyrica] 75 mg PO BID 10/31/19 03/08/22 History rOPINIRole HCL [Requip] 2 mg PO DAILY 02/04/21 03/08/22 History Furosemide [Lasix] 40 mg PO BID 03/08/22 03/08/22 History Nortriptyline [Pamelor] 25 mg PO HS 03/08/22 03/08/22 History Potassium Chloride ER [K-Dur 10] 10 meq PO BID 03/08/22 03/08/22 History amLODIPine [Norvasc] 5 mg PO DAILY 03/08/22 03/08/22 History Aspirin 81 mg PO DAILY #30 tab 03/10/22 Rx Atorvastatin [Lipitor] 40 mg PO HS #30 tab 03/10/22 Rx Hydrocortisone Cream 1 applic TOPICAL BID PRN 5 Days 03/10/22 Rx [Hydrocortisone 1% Cream] each INSULIN ASPART (NovoLOG) [NovoLOG 15 unit SQ AC-TID #10 ml 03/10/22 Rx (formulary)] Insulin Detemir (Levemir) [Levemir] 15 unit SQ DAILY@0700 #10 ml 03/10/22 Rx glipiZIDE [Glucotrol] 5 mg PO BID #60 tab 03/10/22 Rx metFORMIN HCL [Glucophage] 1,000 mg PO BID #60 tab 03/10/22 Rx Allergies Allergy/AdvReac Type Severity Reaction Status Date / Time Iodinated Contrast Media AdvReac Unknown Verified 03/08/22 16:04 Physical Exam Vitals: Vital Signs Temp Pulse Resp BP 03/11/22 08:00 77 136/62 03/11/22 01:41 96.9 F L 65 18 187/85 Intake and Output 03/10/22 03/11/22 03/11/22 22:59 06:59 14:59 Other: Weight 114.4 kg GENERAL: The patient is alert and oriented x3, not in any acute distress. Well developed, well nourished. HEENT: Pupils are round and equally reacting to light. EOMI. No scleral icterus. No conjunctival pallor. Normocephalic, atraumatic. No pharyngeal erythema. No thyromegaly. CARDIOVASCULAR: S1 and S2 present. No murmurs, rubs, or gallops. PULMONARY: Chest is clear to auscultation, no wheezing or crackles. ABDOMEN: Soft, nontender, nondistended, normoactive bowel sounds. No palpable organomegaly. MUSCULOSKELETAL: No joint swelling or deformity. -EXTREMITIES: No cyanosis, clubbing, . Mild bilateral pitting like edema NEUROLOGICAL: Gross neurological examination did not reveal any focal deficits. SKIN: No rashes. no petechiae. Results Labs: Abnormal Lab Results - Last 24 Hours (Table) 03/11/22 Range/Units 07:49 POC Glucose (mg/dL) 154 H (75-99) mg/dL Assessment and Plan Assessment: -Depression, history of PTSD, and a lot of stress, with suicidal ideation: Management as per psych primary team -Type 2 diabetes mellitus, with hyperglycemia, continue with the glipizide 5 mg large frequency from twice a day to daily, metformin 1000 mg twice a day and Levemir insulin 15 units while we lowered NovoLog 15 units with meals down to 10 units with meals while we'll keep monitoring his sugar -Chronic bilateral leg edema, resume to his home dose of Lasix -Generalized weakness, mostly related to his dehydration, hyperglycemia. Improved -non-adherence to therapy , patient counseled and he is taking his medication and interested in continue therapy -dehydration, improved -Hypertension: Continue same medication -Hyperlipidemia -Diabetic nephropathy -History of coronary artery disease status post stent placement patient is mobile and low risk for DVT We recommend patient follow up with primary care doctor in 1 week after discharge, he was instructed with the same Patient will need to follow up with his PCP Dr. Cee Also patient was instructed to follow up with neurologist Dr. Arcos in 1 week after discharge Patient also might benefit from construction project manager evaluation with Dr. Singh, or Dr. Hagan, see discharge instruction Thank you for consulting us, we will see the patient on as needed basis.
--- NOTE | 2022-03-12 10:35 | P.PN ---
Progress Note - Text Progress Note Date: 03/12/22 Interval History: Patient was seen lying in his bed this morning and was agreeable to speak to zena dias. Patient states that his mood has been gradually improving with the medication. He states that he still feels anxious at times. He is not reporting any side effects at this time. He claims that he is still trying to "figure things out" as to where she will be going when he is discharged from the unit. He states that he feels unsafe and unsure about his situation. He claims that he is feeling very tired today as he did not sleep much last night. He claims that the insulin dose was not given to him correctly and he had to urinate frequently last night. He states that he has been trying to go to some groups. At this time patient denies any current suicidal or homical ideations, intent or plan. Patient denies any auditory, visual hallucinations and denies any paranoia or delusions. Patient denies any side effects from the medications and has been compliant with meds. Mental Status Exam: General Appearance: Patient appears to be obese, wearing glasses, stated age is alert, directable, and attempts to cooperate. Patient appears to have fair hygiene and grooming. Behavior: Patient is seated without any agitated behavior Speech: Patient's speech is fluent and nonpressured. Mood/Affect: Patient reports their mood is depressed, improving mildly, affect is congruent and constricted. Suicidality/Homicidality: Patient denies having any homicidal ideation intent or plan. Denies any suicidal ideations intent or plan Perceptions: Patient denies any visual hallucinations and denies any auditory hallucinations Though content/process: There is no evidence of any delusional thought content and thought process is linear and goal-directed. Rambles at times. Memory and concentration: AOX3, grossly intact for the purposes of this session Judgment and insight: Improving mildly IMPRESSIONS: Major depressive disorder, without psychotic features Homelessness, financial difficulties Plan: -Patient continues to meet criteria for inpatient psychiatric admission for symptom stabilization and safety. Patient has signed adult voluntary form and medication consent and was placed in patient's chart. -Medications: Increase Cymbalta to 60 mg daily for mood/anxiety starting on Tuesday. Increased melatonin to 6 mg daily at bedtime for insomnia. -When necessary Ativan and Haldol for agitation/aggression. -NRT - not needed as patient does not smoke. -SW on board for discharge planning. Encouraged the patient to participate in milieu. likely discharge early next week.
[2022-03-12 12:48] LABS: Glucose,Whole Blood 258 mg/dL (75-99)
[2022-03-12] MEDS ORDERED: HYDROCORTISONE 1% CREAM 30 GM TUBE TOPICAL PRN (17:35)
[2022-03-12 17:39] LABS: Glucose,Whole Blood 295 mg/dL (75-99)
[2022-03-12] MEDS ORDERED: INSULIN ASPART (NovoLOG) 100 UNIT/ML VIAL SQ SCH (18:15)
[2022-03-12] MEDS: MELATONIN 3 MG TABLET PO SCH (21:37)
[2022-03-12] MEDS: ATORVASTATIN 40 MG TAB PO SCH (21:38)
[2022-03-13] MEDS ORDERED: INSULIN DETEMIR (LEVEMIR) 100 UNIT/ML SYR SQ SCH (07:00)
[2022-03-13 07:54] LABS: Glucose,Whole Blood 263 mg/dL (75-99)
[2022-03-13] MEDS: INSULIN ASPART (NovoLOG) 100 UNIT/ML VIAL SQ SCH ×3 (08:02→17:46)
[2022-03-13] MEDS: INSULIN DETEMIR (LEVEMIR) 100 UNIT/ML SYR SQ SCH (08:02)
[2022-03-13] MEDS: ACETAMINOPHEN TAB 325 MG TAB PO PRN ×3 (08:03→19:06)
[2022-03-13] MEDS: POTASSIUM CHLORIDE ER 10 MEQ TAB.ER.PRT PO SCH ×2 (08:04→21:01)
[2022-03-13] MEDS: PREGABALIN 75 MG CAP PO SCH ×2 (08:04→21:00)
[2022-03-13] MEDS: amLODIPine 5 MG TAB PO SCH (08:04)
[2022-03-13] MEDS: METOPROLOL TARTRATE 50 MG TAB PO SCH ×2 (08:04→21:00)
[2022-03-13] MEDS: FUROSEMIDE 40 MG TAB PO SCH ×2 (08:04→15:33)
[2022-03-13] MEDS: glipiZIDE 5 MG TAB PO SCH (08:04)
[2022-03-13] MEDS: metFORMIN 500 MG TAB PO SCH ×2 (08:04→21:00)
[2022-03-13] MEDS: ASPIRIN 81 MG PO SCH (08:04)
[2022-03-13] MEDS ORDERED: DULoxetine HCL 30 MG CAPSULE.DR PO SCH (09:00)
[2022-03-13 12:39] LABS: Glucose,Whole Blood 350 mg/dL (75-99)
[2022-03-13 17:43] LABS: Glucose,Whole Blood 185 mg/dL (75-99)
--- NOTE | 2022-03-13 18:15 | P.PN ---
Progress Note - Text Progress Note Date: 03/13/22 Interval history: Patient agreeable to speak with typewriter assembler. At this time patient denies any suicidal or homicidal ideations intent or plan. Denies any auditory or visual hallucinations. Patient denies any side effects from the medications and has been compliant with meds. Mental status exam: General Appearance: Patient appears to be stated age, dressed in black pants and shirt, hygiene is average. Behavior: No agitated behavior. Patient is calm and directable. Speech: Patient's speech is fluent and nonpressured. Mood/Affect: Mood is improving mildly, affect is congruent and constricted. Suicidality/Homicidality: Patient denies having any suicidal or homicidal shivam ation intent or plan. Perceptions: Patient denies any auditory or visual hallucinations. Though content/process: There is no evidence of any delusional thought content and thought process is linear and goal-directed. Memory and concentration: AOX3, grossly intact for the purposes of this session Judgment and insight: improving mildly Assessment/Plan: Continue with current diagnosis. Patient continues to meet criteria for inpatient psychiatric admission for symptom stabilization and safety. Patient will be maintained on current psychotropic medication regimen, except for Cymbalta will increase to 60 mg daily for mood/anxiety on Tuesday03/14/22. Monitor for medication compliance and for any psychotropic medication side effects. Will continue to monitor ongoing response to treatment. Encouraged participation in milieu.
[2022-03-13 19:04] LABS: Glucose,Whole Blood 248 mg/dL (75-99)
[2022-03-13 20:21] LABS: Glucose,Whole Blood 133 mg/dL (75-99)
[2022-03-13] MEDS: ATORVASTATIN 40 MG TAB PO SCH (21:00)
[2022-03-13] MEDS: MELATONIN 3 MG TABLET PO SCH (21:02)
[2022-03-14 07:52] LABS: Glucose,Whole Blood 259 mg/dL (75-99)
[2022-03-14] MEDS: METOPROLOL TARTRATE 50 MG TAB PO SCH ×2 (07:58→19:17)
[2022-03-14] MEDS: FUROSEMIDE 40 MG TAB PO SCH ×2 (07:59→16:00)
[2022-03-14] MEDS: metFORMIN 500 MG TAB PO SCH ×2 (07:59→19:18)
[2022-03-14] MEDS: POTASSIUM CHLORIDE ER 10 MEQ TAB.ER.PRT PO SCH ×2 (07:59→19:17)
[2022-03-14] MEDS: PREGABALIN 75 MG CAP PO SCH ×2 (07:59→19:17)
[2022-03-14] MEDS: glipiZIDE 5 MG TAB PO SCH (07:59)
[2022-03-14] MEDS: amLODIPine 5 MG TAB PO SCH (07:59)
[2022-03-14] MEDS: ASPIRIN 81 MG PO SCH (07:59)
[2022-03-14] MEDS: INSULIN DETEMIR (LEVEMIR) 100 UNIT/ML SYR SQ SCH (07:59)
[2022-03-14] MEDS: ACETAMINOPHEN TAB 325 MG TAB PO PRN (08:00)
[2022-03-14] MEDS: INSULIN ASPART (NovoLOG) 100 UNIT/ML VIAL SQ SCH ×3 (08:01→17:48)
[2022-03-14] MEDS ORDERED: DULoxetine HCL 60 MG CAPSULE.DR PO SCH (09:00)
[2022-03-14 09:09] LABS: Glucose,Whole Blood 295 mg/dL (75-99)
[2022-03-14 12:45] LABS: Glucose,Whole Blood 207 mg/dL (75-99)
[2022-03-14 17:41] LABS: Glucose,Whole Blood 207 mg/dL (75-99)
--- NOTE | 2022-03-14 19:16 | P.PN ---
Progress Note - Text Progress Note Date: 03/14/22 Interval history: Patient agreeable to speak with physician underwriter. He reports feeling dizzy earlier this morning, he cannot recall is it was before or after he took the Cymbalta. The Cymbalta increased to 60 mg daily this morning and he reports improved mood, except for a bout of dizziness this morning. At this time patient denies any suicidal or homicidal ideations intent or plan. Denies any auditory or visual hallucinations. Patient has been compliant with meds. Mental status exam: General Appearance: Patient appears to be stated age, dressed in black pants and shirt, hygiene is average. Behavior: No agitated behavior. Patient is calm and directable. Speech: Patient's speech is fluent and nonpressured. Mood/Affect: Mood is improving mildly, affect is congruent and constricted. Suicidality/Homicidality: Patient denies having any suicidal or homicidal ideation intent or plan. Perceptions: Patient denies any auditory or visual hallucinations. Though content/process: There is no evidence of any delusional thought content and thought process is linear and goal-directed. Memory and concentration: AOX3, grossly intact for the purposes of this session Judgment and insight: improving mildly Assessment/Plan: Continue with current diagnosis. Patient continues to meet criteria for inpatient psychiatric admission for symptom stabilization and safety. Patient will be maintained on current psychotropic medication regimen, except for will adjust Cymbalta to 30 mg BID starting tomorrow due to reported dizziness. Monitor for medication compliance and for any psychotropic medication side effects. Will continue to monitor ongoing response to treatment. Encouraged participation in milieu.
[2022-03-14] MEDS: MELATONIN 3 MG TABLET PO SCH (19:17)
[2022-03-14] MEDS: ATORVASTATIN 40 MG TAB PO SCH (19:17)
[2022-03-15 07:41] LABS: Glucose,Whole Blood 232 mg/dL (75-99)
[2022-03-15] MEDS: INSULIN ASPART (NovoLOG) 100 UNIT/ML VIAL SQ SCH ×3 (07:48→17:41)
[2022-03-15] MEDS: glipiZIDE 5 MG TAB PO SCH (07:49)
[2022-03-15] MEDS: INSULIN DETEMIR (LEVEMIR) 100 UNIT/ML SYR SQ SCH (07:49)
[2022-03-15] MEDS: POTASSIUM CHLORIDE ER 10 MEQ TAB.ER.PRT PO SCH ×2 (07:50→20:21)
[2022-03-15] MEDS: amLODIPine 5 MG TAB PO SCH (07:50)
[2022-03-15] MEDS: DULoxetine HCL 30 MG CAPSULE.DR PO SCH ×2 (07:50→20:21)
[2022-03-15] MEDS: METOPROLOL TARTRATE 50 MG TAB PO SCH ×2 (07:50→20:21)
[2022-03-15] MEDS: FUROSEMIDE 40 MG TAB PO SCH ×2 (07:51→15:29)
[2022-03-15] MEDS: PREGABALIN 75 MG CAP PO SCH ×2 (07:51→20:22)
[2022-03-15] MEDS: metFORMIN 500 MG TAB PO SCH ×2 (07:51→20:21)
[2022-03-15] MEDS: ASPIRIN 81 MG PO SCH (07:51)
--- NOTE | 2022-03-15 10:33 | P.PN ---
Progress Note - Text Progress Note Date: 03/15/22 Interval History: Patient was seen lying in his bed this morning and was agreeable to speak to zena dias. Patient states that his mood has been gradually improving with the medication over the weekend. He states that he has not been receiving a diabetic diet. He claims that he is up urinating about 1-3 times overnight and has been disrupting his sleep. He states that his blood sugars have not been under good control. He is not reporting any side effects at this time. He asked more questions about discharge and also applying for Social Security. He states that he has been trying to go to some groups. At this time patient denies any current suicidal or homical ideations, intent or plan. Patient denies any auditory, visual hallucinations and denies any paranoia or delusions. Patient denies any side effects from the medications and has been compliant with meds. Mental Status Exam: General Appearance: Patient appears to be obese, wearing glasses, stated age is alert, directable, and attempts to cooperate. Patient appears to have fair hygiene and grooming. Behavior: Patient is seated without any agitated behavior Speech: Patient's speech is fluent and nonpressured. Mood/Affect: Patient reports their mood is improving mildly, affect is congruent and constricted. Suicidality/Homicidality: Patient denies having any homicidal ideation intent or plan. Denies any suicidal ideations intent or plan Perceptions: Patient denies any visual hallucinations and denies any auditory h allucinations Though content/process: There is no evidence of any delusional thought content and thought process is linear and goal-directed. Memory and concentration: AOX3, grossly intact for the purposes of this session Judgment and insight: Improving mildly IMPRESSIONS: Major depressive disorder, without psychotic features Homelessness, financial difficulties Plan: -Patient continues to meet criteria for inpatient psychiatric admission for symptom stabilization and safety. Patient has signed adult voluntary form and medication consent and was placed in patient's chart. -Medications: Increase Cymbalta to 30 mg bid for mood/anxiety starting on Tuesday. Increased melatonin to 10 mg daily at bedtime for insomnia. -When necessary Ativan and Haldol for agitation/aggression. -NRT - not needed as patient does not smoke. -SW on board for discharge planning. Encouraged the patient to participate in milieu. liekly discharge tomorrow
[2022-03-15] MEDS: ACETAMINOPHEN TAB 325 MG TAB PO PRN (11:05)
[2022-03-15] MEDS ORDERED: glipiZIDE 5 MG TAB PO STA (11:17)
[2022-03-15 12:55] LABS: Glucose,Whole Blood 233 mg/dL (75-99)
[2022-03-15 17:37] LABS: Glucose,Whole Blood 193 mg/dL (75-99)
[2022-03-15 20:16] LABS: Glucose,Whole Blood 249 mg/dL (75-99)
[2022-03-15] MEDS: ATORVASTATIN 40 MG TAB PO SCH (20:22)
[2022-03-15] MEDS ORDERED: MELATONIN 5 MG TABLET PO SCH (21:00)
[2022-03-16] MEDS: ACETAMINOPHEN TAB 325 MG TAB PO PRN (06:37)
[2022-03-16 06:42] VITALS: BP 125/74; PULSE 74; RESP 14; TEMP 98.1
[2022-03-16] MEDS ORDERED: glipiZIDE 10 MG TAB PO SCH (07:30)
[2022-03-16 07:46] LABS: Glucose,Whole Blood 264 mg/dL (75-99)
[2022-03-16] MEDS: INSULIN DETEMIR (LEVEMIR) 100 UNIT/ML SYR SQ SCH (07:58)
[2022-03-16] MEDS: amLODIPine 5 MG TAB PO SCH (07:59)
[2022-03-16] MEDS: ASPIRIN 81 MG PO SCH (07:59)
[2022-03-16] MEDS: INSULIN ASPART (NovoLOG) 100 UNIT/ML VIAL SQ SCH ×2 (07:59→12:59)
[2022-03-16] MEDS: METOPROLOL TARTRATE 50 MG TAB PO SCH (08:00)
[2022-03-16] MEDS: metFORMIN 500 MG TAB PO SCH (08:00)
[2022-03-16] MEDS: PREGABALIN 75 MG CAP PO SCH (08:00)
[2022-03-16] MEDS: FUROSEMIDE 40 MG TAB PO SCH (08:00)
[2022-03-16] MEDS: DULoxetine HCL 30 MG CAPSULE.DR PO SCH (08:00)
[2022-03-16] MEDS: POTASSIUM CHLORIDE ER 10 MEQ TAB.ER.PRT PO SCH (08:00)
[2022-03-16 10:53] VITALS: BMI 35.8
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
[2022-03-16 12:35] LABS: Glucose,Whole Blood 231 mg/dL (75-99)
== END 2022-03-16 16:12 | disposition home or self-care (01) | DRG 881 ==
LOC: 3MHU 01:10
PROVIDERS: ADMIT Psychiatry & Neurology Psychiatry; ATTEND Psychiatry & Neurology Psychiatry
DX: F32.9 Major depressive disorder, single episode, unspecified (principal); E11.21 Type 2 diabetes mellitus with diabetic nephropathy; E11.65 Type 2 diabetes mellitus with hyperglycemia; E78.5 Hyperlipidemia, unspecified; E86.0 Dehydration; G47.00 Insomnia, unspecified; I10 Essential (primary) hypertension; I25.10 Atherosclerotic heart disease of native coronary artery without angina pectoris; J45.909 Unspecified asthma, uncomplicated; T46.5X2A Poisoning by other antihypertensive drugs, intentional self-harm, initial encounter; Z59.00 Homelessness unspecified; Z79.4 Long term (current) use of insulin; Z79.82 Long term (current) use of aspirin; Z79.84 Long term (current) use of oral hypoglycemic drugs; Z79.899 Other long term (current) drug therapy; Z81.8 Family history of other mental and behavioral disorders; Z82.49 Family history of ischemic heart disease and other diseases of the circulatory system; Z95.5 Presence of coronary angioplasty implant and graft
CPT/HCPCS: 83036

== ENCOUNTER 2022-05-01 13:36 | Emergency (ER) | payer MEDICARE, OTHER ==
[2022-05-01 13:42] VITALS: PULSE 72; TEMP 97.7
[2022-05-01 14:45] LABS: Glucose,Whole Blood 322 mg/dL (70-110)
--- NOTE | 2022-05-01 15:10 | ED ---
General Adult HPI - General Chief complaint: Extremity Problem,Nontraumatic Stated complaint: nerve pain Time Seen by Provider: 05/01/22 14:33 Source: patient Mode of arrival: wheelchair Limitations: no limitations - History of Present Illness Initial comments: Dictation was produced using [employer] dictation software. please excuse any grammatical, word or spelling errors. Chief Complaint: 67-year-old male presents emergency department for acute on chronic neuropathy of his bilateral feet History of Present Illness: 67-year-old male with past medical history of diabetic neuropathy presents to the emergency department for chronic neuropathy symptoms. Patient states he has long established history for use of diabetic neuropathy. He states that his primary care doctor is unable to start him on controlled substances however if he was able to he would've started him on Lyrica. Patient denies any other complaints at this time. Patient states that he otherwise feels at baseline. The ROS documented in this emergency department record has been reviewed and confirmed by me. Those systems with pertinent positive or negative responses have been documented in the HPI. All other systems are other negative and/or noncontributory. PHYSICAL EXAM: General Impression: Alert and oriented x3, not in acute distress HEENT: Normocephalic atraumatic, extra-ocular movements intact, pupils equal and reactive to light bilaterally, mucous membranes moist. Cardiovascular: Heart regular rate and rhythm Chest: Able to complete full sentences, no retractions, no tachypnea Abdomen: abdomen soft, non-tender, non-distended, no organomegaly Musculoskeletal: Pulses present and equal in all extremities, no peripheral edema Motor: no focal deficits noted Neurological: CN II-XII grossly intact, no focal motor or sensory deficits noted Skin: Intact with no visualized rashes, neuropathic palpatory tenderness to the bilateral feet Psych: Normal affect and mood ED course: 67-year-old male presents to the emergency department for treatment of acute on chronic neuropathy symptoms. Physical Signs upon arrival are within acceptable limits. Physical examination is benign. Treatment options were discussed with patient. He understands that he has to follow-up for outpatient management of his neuropathy. Patient would like to be started on pregabalin. Patient given referral to pain specialist. - Related Data Previous Rx's Medication Instructions Recorded Aspirin 81 mg PO DAILY 30 Days #30 tab 03/16/22 Atorvastatin [Lipitor] 40 mg PO HS 30 Days #30 tab 03/16/22 DULoxetine HCL [Cymbalta] 30 mg PO BID 30 Days cap 03/16/22 Furosemide [Lasix] 40 mg PO BID 30 Days tab 03/16/22 Hydrocortisone Cream 1 applic TOPICAL BID PRN 30 Days 03/16/22 [Hydrocortisone 1% Cream] each INSULIN ASPART (NovoLOG) [NovoLOG 15 unit SQ AC-TID 30 Days #10 ml 03/16/22 (formulary)] Insulin Detemir (Levemir) [Levemir] 15 unit SQ DAILY@0700 30 Days #10 03/16/22 ml Melatonin 10 mg PO HS 30 Days tab 03/16/22 Metoprolol Tartrate [Lopressor] 100 mg PO BID 30 Days tab 03/16/22 Potassium Chloride ER [K-Dur 10] 10 meq PO BID 30 Days tab 03/16/22 Pregabalin [Lyrica] 75 mg PO BID 30 Days cap 03/16/22 amLODIPine [Norvasc] 5 mg PO DAILY 30 Days tab 03/16/22 glipiZIDE [Glucotrol] 10 mg PO AC-BRKFST 30 Days tab 03/16/22 metFORMIN HCL [Glucophage] 1,000 mg PO BID 30 Days tab 03/16/22 rOPINIRole HCL [Requip] 2 mg PO DAILY 30 Days tab 03/16/22 Pregabalin 50 mg PO TID 3 Days #9 cap 05/01/22 Allergies Allergy/AdvReac Type Severity Reaction Status Date / Time Iodinated Contrast Media AdvReac Unknown Verified 05/01/22 13:42 Review of Systems ROS Statement: Those systems with pertinent positive or pertinent negative responses have been documented in the HPI. ROS Other: All systems not noted in ROS Statement are negative. 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 History of Any Multi-Drug Resistant Organisms: None Reported Past Surgical History: Heart Catheterization With Stent Additional Past Surgical History / Comment(s): pt reports benign abdominal tumer removed "years ago" Past Anesthesia/Blood Transfusion Reactions: No Reported Reaction Date of Last Stent Placement:: 02/04/21 Past Psychological History: Depression, PTSD Past Alcohol Use History: None Reported Past Drug Use History: None Reported - Past Family History Father History Unknown: Yes Family Medical History: Coronary Artery Disease (CAD), Diabetes Mellitus Additional Family Medical History / Comment(s): hemophilia Mother Family Medical History: Diabetes Mellitus General Exam Limitations: no limitations Course Vital Signs 05/01/22 13:39 Temperature 97.7 F Pulse Rate 72 Respiratory 18 Rate Blood Pressure 175/84 O2 Sat by Pulse 100 Oximetry Medical Decision Making - Lab Data Lab Results 05/01/22 Range/Units 14:43 POC Glucose (mg/dL) 322 H (70-110) mg/dL POC Glu Amusement Ride Inspector ID Heather Souza Disposition Clinical Impression: Neuropathy Disposition: HOME SELF-CARE Condition: Good Instructions (If sedation given, give patient instructions): Diabetic Peripheral Neuropathy (ED) Prescriptions: Pregabalin 50 mg PO TID 3 Days #9 cap Is patient prescribed a controlled substance at d/c from ED?: Yes Referrals: Vinnie Mueller MD [STAFF PHYSICIAN] - 1-2 days Time of Disposition: 15:10
[2022-05-01] MEDS ORDERED: ACET/COD 300 MG/30 MG STARTER PACK 6 TAB BTL PO STA (15:25)
[2022-05-01 15:28] VITALS: BP 134/63; RESP 16
== END 2022-05-01 15:28 | disposition home or self-care (01) ==
LOC: EC 13:36
DX: E11.42 Type 2 diabetes mellitus with diabetic polyneuropathy (principal); J45.909 Unspecified asthma, uncomplicated; I25.10 Atherosclerotic heart disease of native coronary artery without angina pectoris; E78.5 Hyperlipidemia, unspecified; I10 Essential (primary) hypertension; F32.A Depression, unspecified; Z91.041 Radiographic dye allergy status; Z79.82 Long term (current) use of aspirin; Z79.899 Other long term (current) drug therapy
CPT/HCPCS: 36415; 99284

== ENCOUNTER 2023-02-24 18:27 | Emergency (ER) | payer MEDICARE, OTHER ==
[2023-02-24 18:34] VITALS: RESP 18; TEMP 98.1
[2023-02-24 18:41] LABS: Glucose,Whole Blood 201 mg/dL (70-110)
[2023-02-24] MEDS ORDERED: SODIUM CHLORIDE 0.9% 1,000 ML IV STA ×3 (19:53→23:50)
[2023-02-24] MEDS ORDERED: MORPHINE SULFATE 4 MG/ML SYRINGE IV STA (19:53)
--- NOTE | 2023-02-24 20:01 | ED ---
Fall HPI - General Chief Complaint: Fall Stated Complaint: Fall Time Seen by Provider: 02/24/23 19:23 Source: EMS, RN notes reviewed, old records reviewed Mode of arrival: EMS Limitations: no limitations - History of Present Illness Initial Comments: This is a 68-year-old male to the ER for evaluation patient presents from fall. Patient states he feels significantly weak after receiving pneumonia vaccine and coronavirus vaccine 2 days ago. Patient has persistent weakness here in the ER and again patient of fall prior to arrival he did hit his head with no loss of consciousness complains of right arm pain for the pain neck pain. Patient states is able ambulate and he does admit to dizziness prior to fall MD Complaint: fall -: days(s) Fall From: standing When Fall Occurred: 1 hour [employer] Fall Witnessed: no Place Fall Occurred: home Loss of Consciousness: none Prolonged Down Time?: no Symptoms Prior to Fall: none Location: head, face Severity: moderate Severity scale (1-10): 2 Context: other Associated Symptoms: denies - Related Data Previous Rx's Medication Instructions Recorded Aspirin 81 mg PO DAILY 30 Days #30 tab 03/16/22 Atorvastatin [Lipitor] 40 mg PO HS 30 Days #30 tab 03/16/22 DULoxetine HCL [Cymbalta] 30 mg PO BID 30 Days cap 03/16/22 Furosemide [Lasix] 40 mg PO BID 30 Days tab 03/16/22 Hydrocortisone Cream 1 applic TOPICAL BID PRN 30 Days 03/16/22 [Hydrocortisone 1% Cream] each INSULIN ASPART (NovoLOG) [NovoLOG 15 unit SQ AC-TID 30 Days #10 ml 03/16/22 (formulary)] Insulin Detemir (Levemir) [Levemir] 15 unit SQ DAILY@0700 30 Days #10 03/16/22 ml Melatonin 10 mg PO HS 30 Days tab 03/16/22 Metoprolol Tartrate [Lopressor] 100 mg PO BID 30 Days tab 03/16/22 Potassium Chloride ER [K-Dur 10] 10 meq PO BID 30 Days tab 03/16/22 Pregabalin [Lyrica] 75 mg PO BID 30 Days cap 03/16/22 amLODIPine [Norvasc] 5 mg PO DAILY 30 Days tab 03/16/22 glipiZIDE [Glucotrol] 10 mg PO AC-BRKFST 30 Days tab 03/16/22 metFORMIN HCL [Glucophage] 1,000 mg PO BID 30 Days tab 03/16/22 rOPINIRole HCL [Requip] 2 mg PO DAILY 30 Days tab 03/16/22 Pregabalin 50 mg PO TID 3 Days #9 cap 05/01/22 Allergies Allergy/AdvReac Type Severity Reaction Status Date / Time Iodinated Contrast Media AdvReac Unknown Verified 02/24/23 18:34 Review of Systems ROS Statement: Those systems with pertinent positive or pertinent negative responses have been documented in the HPI. ROS Other: All systems not noted in ROS Statement are negative. 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 History of Any Multi-Drug Resistant Organisms: None Reported Past Surgical History: Heart Catheterization With Stent Additional Past Surgical History / Comment(s): pt reports benign abdominal tumer removed "years ago" Past Anesthesia/Blood Transfusion Reactions: No Reported Reaction Date of Last Stent Placement:: 02/04/21 Past Psychological History: Depression, PTSD Smoking Status: Former smoker Past Alcohol Use History: None Reported Past Drug Use History: None Reported - Past Family History Father History Unknown: Yes Family Medical History: Coronary Artery Disease (CAD), Diabetes Mellitus Additional Family Medical History / Comment(s): hemophilia Mother Family Medical History: Diabetes Mellitus General Exam Limitations: no limitations General appearance: alert, in no apparent distress Head exam: Present: normocephalic, normal inspection. Absent: atraumatic (Forehead hematoma) Eye exam: Present: normal appearance, PERRL, EOMI. Absent: scleral icterus, conjunctival injection, periorbital swelling ENT exam: Present: normal exam, mucous membranes moist Neck exam: Present: normal inspection. Absent: tenderness, meningismus, lymphadenopathy Respiratory exam: Present: normal lung sounds bilaterally. Absent: respiratory distress, wheezes, rales, rhonchi, stridor Cardiovascular Exam: Present: regular rate, normal rhythm, normal heart sounds. Absent: systolic murmur, diastolic murmur, rubs, gallop, clicks GI/Abdominal exam: Present: soft, normal bowel sounds. Absent: distended, tenderness, guarding, rebound, rigid Extremities exam: Present: normal inspection, full ROM, normal capillary refill. Absent: tenderness, pedal edema, joint swelling, calf tenderness Back exam: Present: normal inspection Neurological exam: Present: alert, oriented X3, CN II-XII intact Psychiatric exam: Present: normal affect, normal mood Skin exam: Present: warm, dry, intact, normal color. Absent: rash Course Vital Signs 02/24/23 02/24/23 18:30 23:08 Temperature 98.1 F Pulse Rate 77 74 Respiratory 18 18 Rate Blood Pressure 119/59 136/68 O2 Sat by Pulse 98 97 Oximetry - Reevaluation(s) Reevaluation #1: 02/25/23 00:04 Medical records reviewed Reevaluation #2: 02/25/23 00:04 Patient has no change in symptoms are improving with hydration Reevaluation #3: 02/25/23 00:04 Patient border results questions answered Reevaluation #4: 02/25/23 00:04 Was pt. sent in by a medical professional or institution? @ -no Did you speak to anyone other than the patient for history? @ -no Did you review nursing and triage notes? @ -agree Were old charts reviewed? @ -no Differential Diagnosis? @ -prior EKG interpreted by me (3pts min.)? @ -yes X-rays interpreted by me (1pt min.)? @ -yes CT interpreted by me (1pt min.)? @ -no U/S interpreted by me (1pt. min.)? @ -no What testing was considered but not performed? (CT, X-rays, U/S, labs)? Why? @ -no What meds were considered but not given? Why? @ -no Did you discuss the management of the patient with other professionals? @ -no Did you reconcile home meds? @ -no Was smoking cessation discussed for >3mins.? @ -no Was critical care preformed (if so, how long)? @ -no Were there social determinants of health that impacted care today? How? (Homelessness, low income, unemployed, alcoholism, drug addiction, trans portation, low edu. Level, literacy, decrease access to med. care, residential, rehab)? @ -no Was there de-escalation of care discussed even if they declined? (Discuss DNR or withdrawal of care, Hospice)? @ -no What co-morbidities impacted this encounter? (DM, HTN, Smoking, COPD, CAD, Cancer, CVA, Hep., AIDS, mental health diagnosis, sleep apnea, morbid obesity)? @ -none Was patient admitted / discharged? @ -dc Undiagnosed new problem with uncertain prognosis? @ -no Drug Therapy requiring intensive monitoring for toxicity (Heparin, Nitro, Insulin, Cardizem)? @ -no Were any procedures done? @ -no Diagnosis/symptom? @ -Weakness a vaccine reaction Acute, or Chronic, or Acute on Chronic? @ -no Uncomplicated (without systemic symptoms) or Complicated (systemic symptoms)? @ -uncomplicated Side effects of treatment? @ -no Exacerbation, Progression, or Severe Exacerbation] @ -no Poses a threat to life or bodily function? @ -no Reevaluation #5: 02/25/23 00:05 Differential Weakness: Hypoglycemia, shock, sepsis, hyponatremia, anemia, infection, NE, ETOH, adverse medicine reaction, overdose, stroke, this is not meant to be an all-inclusive l ist. Medical Decision Making - Medical Decision Making 68 male DF for evaluation of severe weakness after vaccination. Improving with hydration here in the ER, patient feels good for discharge home no traumatic injury from fall fall from standing persists after dizzy event - Lab Data Result diagrams: 02/24/23 20:22 02/24/23 20:22 Lab Results 02/24/23 02/24/23 02/24/23 Range/Units 18:39 20:22 20:22 WBC 22.4 H (3.8-10.6) k/uL RBC 5.02 (4.30-5.90) m/uL Hgb 13.4 (13.0-17.5) gm/dL Hct 40.1 (39.0-53.0) % MCV 79.9 L (80.0-100.0) fL MCH 26.6 (25.0-35.0) pg MCHC 33.4 (31.0-37.0) g/dL RDW 14.7 (11.5-15.5) % Plt Count 298 (150-450) k/uL MPV 7.6 Neutrophils % 88 % Lymphocytes % 5 % Monocytes % 4 % Eosinophils % 1 % Basophils % 0 % Neutrophils # 19.8 H (1.3-7.7) k/uL Lymphocytes # 1.2 (1.0-4.8) k/uL Monocytes # 0.8 (0-1.0) k/uL Eosinophils # 0.2 (0-0.7) k/uL Basophils # 0.0 (0-0.2) k/uL PT 10.9 (9.0-12.0) sec INR 1.0 (<1.2) APTT 24.3 (22.0-30.0) sec Sodium (137-145) mmol/L Potassium (3.5-5.1) mmol/L Chloride (98-107) mmol/L Carbon Dioxide (22-30) mmol/L Anion Gap mmol/L BUN (9-20) mg/dL Creatinine (0.66-1.25) mg/dL Est GFR (CKD-EPI)AfAm (>60 ml/min/1.73 sqM) Est GFR (CKD-EPI)NonAf (>60 ml/min/1.73 sqM) Glucose (74-99) mg/dL POC Glucose (mg/dL) 201 H (70-110) mg/dL POC Glu Manager Delivery Adalberto Mcneil Plasma Lactic Acid Guero (0.7-2.0) mmol/L Calcium (8.4-10.2) mg/dL Phosphorus (2.5-4.5) mg/dL Magnesium (1.6-2.3) mg/dL Total Bilirubin (0.2-1.3) mg/dL AST (17-59) U/L ALT (4-49) U/L Alkaline Phosphatase (38-126) U/L Troponin I (0.000-0.034) ng/mL Total Protein (6.3-8.2) g/dL Albumin (3.5-5.0) g/dL 02/24/23 02/24/23 02/24/23 Range/Units 20:22 20:22 20:22 WBC (3.8-10.6) k/uL RBC (4.30-5.90) m/uL Hgb (13.0-17.5) gm/dL Hct (39.0-53.0) % MCV (80.0-100.0) fL MCH (25.0-35.0) pg MCHC (31.0-37.0) g/dL RDW (11.5-15.5) % Plt Count (150-450) k/uL MPV Neutrophils % % Lymphocytes % % Monocytes % % Eosinophils % % Basophils % % Neutrophils # (1.3-7.7) k/uL Lymphocytes # (1.0-4.8) k/uL Monocytes # (0-1.0) k/uL Eosinophils # (0-0.7) k/uL Basophils # (0-0.2) k/uL PT (9.0-12.0) sec INR (<1.2) APTT (22.0-30.0) sec Sodium 130 L (137-145) mmol/L Potassium 3.6 (3.5-5.1) mmol/L Chloride 90 L (98-107) mmol/L Carbon Dioxide 26 (22-30) mmol/L Anion Gap 14 mmol/L BUN 27 H (9-20) mg/dL Creatinine 1.45 H (0.66-1.25) mg/dL Est GFR (CKD-EPI)AfAm 56 (>60 ml/min/1.73 sqM) Est GFR (CKD-EPI)NonAf 49 (>60 ml/min/1.73 sqM) Glucose 185 H (74-99) mg/dL POC Glucose (mg/dL) (70-110) mg/dL POC Glu Manager Delivery ID Plasma Lactic Acid Guero 1.7 (0.7-2.0) mmol/L Calcium 8.8 (8.4-10.2) mg/dL Phosphorus 2.9 (2.5-4.5) mg/dL Magnesium 1.2 L (1.6-2.3) mg/dL Total Bilirubin 1.2 (0.2-1.3) mg/dL AST 21 (17-59) U/L ALT 20 (4-49) U/L Alkaline Phosphatase 77 (38-126) U/L Troponin I 0.015 (0.000-0.034) ng/mL Total Protein 6.4 (6.3-8.2) g/dL Albumin 3.7 (3.5-5.0) g/dL - EKG Data -: EKG Interpreted by Me (EKG shows sinus 75 [place] 170 QRS 105 QTc 417) - Radiology Data Radiology results: report reviewed (CT brain C-spine chest and pelvis x-ray negative for traumatic injury), image reviewed Disposition Clinical Impression: Fall, Weakness, Forehead contusion Narrative: Vaccination reaction Disposition: HOME SELF-CARE Condition: Good Instructions (If sedation given, give patient instructions): Fall Prevention for Older Adults (ED), Head Injury (ED), Hematoma (ED) Is patient prescribed a controlled substance at d/c from ED?: No Referrals: Khari Gonzáles MD [Primary Care Provider] - 1-2 days Time of Disposition: 23:15
--- NOTE | 2023-02-24 21:16 | XR ---
EXAMINATION: XR chest 1V portable DATE AND TIME: 02/24/2023 8:20 PM CLINICAL INDICATION: PHH; fall TECHNIQUE: AP portable supine COMPARISON: None FINDINGS: The overlying soft tissues are prominent. The lungs appear to be clear. The pleural spaces appear negative. The cardiomediastinal silhouette is difficult to accurately assess in this AP supine positioning. The skeletal structures and soft tissues are negative for acute findings. Limitation of the study: Supine radiography cannot exclude abnormal gas collections including pneumot horax. IMPRESSION: Negative examination.
--- NOTE | 2023-02-24 21:18 | XR ---
PROCEDURE: XR pelvis AP view - 1V DATE AND TIME: 02/24/2023 8:20 PM CLINICAL INDICATION: Pain; fall TECHNIQUE: AP view COMPARISON: None FINDINGS: There is no fracture or malalignment. The soft tissues are unremarkable. IMPRESSION: No acute process.
[2023-02-24 21:33] LABS: Basophils % (A) 0 %; Eosinophils # (A) 0.2 k/uL (0-0.7); Eosinophils % (A) 1 %; HCT 40.1 % (39.0-53.0); HGB 13.4 gm/dL (13.0-17.5); Lymphocytes # (A) 1.2 k/uL (1.0-4.8); Lymphocytes % (A) 5 %; MCH 26.6 pg (25.0-35.0); MCHC 33.4 g/dL (31.0-37.0); MCV 79.9 fL (80.0-100.0); Mean Platelet Volume 7.6; Monocytes # (A) 0.8 k/uL (0-1.0); Monocytes % (A) 4 %; Neutrophils # (A) 19.8 k/uL (1.3-7.7); Neutrophils % (A) 88 %; Platelet Count 298 k/uL (150-450); RBC 5.02 m/uL (4.30-5.90); RDW 14.7 % (11.5-15.5); WBC 22.4 k/uL (3.8-10.6)
[2023-02-24 21:43] LABS: Partial Thromboplastin Time 24.3 sec (22.0-30.0); Prothrombin Time 10.9 sec (9.0-12.0)
[2023-02-24 21:54] LABS: Albumin 3.7 g/dL (3.5-5.0); Calcium 8.8 mg/dL (8.4-10.2); Magnesium 1.2 mg/dL (1.6-2.3); Phosphorus 2.9 mg/dL (2.5-4.5); Potassium 3.6 mmol/L (3.5-5.1); Total Bilirubin 1.2 mg/dL (0.2-1.3); Total Protein 6.4 g/dL (6.3-8.2)
--- NOTE | 2023-02-24 21:55 | CT ---
EXAMINATION TYPE: CT facial bones wo con DATE OF EXAM: 02/24/2023 COMPARISON: None HISTORY: Fall, contusion to forehead CT DLP: combined DLP 1612.6 mGycm. Automated Exposure Control for Dose Reduction was Utilized. TECHNIQUE: CT scan of the sinuses is performed without contrast, axial images are obtained, coronal r eformatted images are also reviewed. FINDINGS: The facial skeleton is negative for fracture or malalignment. The orbits are intact. [place] sinuses are clear. No incidental findings. IMPRESSION: Negative for fracture/malalignment.
--- NOTE | 2023-02-24 22:00 | CT ---
EXAMINATION TYPE: CT brain cspine wo con DATE OF EXAM: 02/24/2023 COMPARISON: 03/08/2022 HISTORY: Fall, contusion to forehead CT DLP: combined DLP 1612.6 mGycm. Automated Exposure Control for Dose Reduction was Utilized. TECHNIQUE: CT scan of the head and cervical spine are performed without contrast. FINDINGS: There is no acute intracranial hemorrhage, mass effect, or midline shift identified. The v entricles and sulci are within normal limits in size. The globes are intact and the visualized sinus es are clear. Cervical spine is visualized in its entirety from C1 through upper thoracic levels and demonstrates s atisfactory alignment without evidence of acute fracture or dislocation. Prevertebral soft tissue ap pears within normal limits. The C1-C2 articulation is unremarkable. IMPRESSION: 1. Negative for acute cervical spine fracture or dislocation. 2. No acute cranial/intracranial process.
[2023-02-24 23:10] VITALS: BP 136/68; PULSE 74
== END 2023-02-25 00:24 | disposition home or self-care (01) ==
LOC: EC 18:27
DX: S00.83XA Contusion of other part of head, initial encounter (principal); R53.1 Weakness; J45.909 Unspecified asthma, uncomplicated; I25.10 Atherosclerotic heart disease of native coronary artery without angina pectoris; E11.9 Type 2 diabetes mellitus without complications; I10 Essential (primary) hypertension; Z86.59 Personal history of other mental and behavioral disorders; Z87.891 Personal history of nicotine dependence; Z91.041 Radiographic dye allergy status; W18.30XA Fall on same level, unspecified, initial encounter; Y92.009 Unspecified place in unspecified non-institutional (private) residence as the place of occurrence of the external cause
CPT/HCPCS: 36415; 93005; 80053; 83605; 83735; 84100; 84484; 85025; 85610; 85730; 72170; 71045; 72125; 70486; 70450; 99285; 96374; 96361 ×4; J2270

== ENCOUNTER 2023-12-05 13:52 | Emergency (ER) | payer MEDICARE, OTHER ==
[2023-12-05 14:31] LABS: Anisocytosis Slight; Basophils # (A) 0.1 k/uL (0-0.2); Basophils % (A) 1 %; Eosinophils # (A) 0.2 k/uL (0-0.7); Eosinophils % (A) 2 %; HCT 33.2 % (39.0-53.0); HGB 10.9 gm/dL (13.0-17.5); Hypochromasia Moderate; Lymphocytes # (A) 0.9 k/uL (1.0-4.8); Lymphocytes % (A) 10 %; MCH 23.7 pg (25.0-35.0); MCHC 32.7 g/dL (31.0-37.0); MCV 72.3 fL (80.0-100.0); Mean Platelet Volume 6.4; Microcytosis Moderate; Monocytes # (A) 0.5 k/uL (0-1.0); Monocytes % (A) 6 %; Neutrophils # (A) 6.7 k/uL (1.3-7.7); Neutrophils % (A) 80 %; Platelet Count 402 k/uL (150-450); WBC 8.4 k/uL (3.8-10.6)
[2023-12-05 14:39] LABS: Partial Thromboplastin Time 25.1 sec (22.0-30.0); Prothrombin Time 11.1 sec (10.0-12.5)
[2023-12-05 14:41] LABS: ALT 18 U/L (4-49); AST 23 U/L (17-59); African American GFR (CKD) 85 (>60 ml/min/1.73 sqM); Albumin 3.7 g/dL (3.5-5.0); Alkaline Phosphatase 92 U/L (38-126); Anion Gap 8 mmol/L; Blood Urea Nitrogen 28 mg/dL (9-20); Calcium 9.3 mg/dL (8.4-10.2); Carbon Dioxide 25 mmol/L (22-30); Chloride 100 mmol/L (98-107); Glucose 206 mg/dL (74-99); Non-African American GFR(CKD) 73 (>60 ml/min/1.73 sqM); Potassium 4.1 mmol/L (3.5-5.1); Sodium 133 mmol/L (137-145); Total Bilirubin 0.5 mg/dL (0.2-1.3); Total Protein 6.5 g/dL (6.3-8.2)
--- NOTE | 2023-12-05 15:27 | ED ---
General Adult HPI - General Chief complaint: Weakness Stated complaint: Weakness,Cough Time Seen by Provider: 12/05/23 14:00 Source: patient, EMS, RN notes reviewed, old records reviewed Mode of arrival: EMS Limitations: no limitations - History of Present Illness Initial comments: Is a 68-year-old male who presents to the emergency department complaining of weakness body aches and a cough. Patient states has been 3 to 4 days at least. Patient denies any fever. Patient has a history of diabetes. Patient states he has no chest pain no shortness of breath. Patient has a headache patient is numbness or focal weakness. Patient has abdominal pain patient has nausea vomiting. Patient denies any exposure to anyone with the flu or COVID that he k nows of. - Related Data Previous Rx's Medication Instructions Recorded Aspirin 81 mg PO DAILY 30 Days #30 tab 03/16/22 Atorvastatin [Lipitor] 40 mg PO HS 30 Days #30 tab 03/16/22 DULoxetine HCL [Cymbalta] 30 mg PO BID 30 Days cap 03/16/22 Furosemide [Lasix] 40 mg PO BID 30 Days tab 03/16/22 Hydrocortisone Cream 1 applic TOPICAL BID PRN 30 Days 03/16/22 [Hydrocortisone 1% Cream] each INSULIN ASPART (NovoLOG) [NovoLOG 15 unit SQ AC-TID 30 Days #10 ml 03/16/22 (formulary)] Insulin Detemir (Levemir) [Levemir] 15 unit SQ DAILY@0700 30 Days #10 03/16/22 ml Melatonin 10 mg PO HS 30 Days tab 03/16/22 Metoprolol Tartrate [Lopressor] 100 mg PO BID 30 Days tab 03/16/22 Potassium Chloride ER [K-Dur 10] 10 meq PO BID 30 Days tab 03/16/22 Pregabalin [Lyrica] 75 mg PO BID 30 Days cap 03/16/22 amLODIPine [Norvasc] 5 mg PO DAILY 30 Days tab 03/16/22 glipiZIDE [Glucotrol] 10 mg PO AC-BRKFST 30 Days tab 03/16/22 metFORMIN HCL [Glucophage] 1,000 mg PO BID 30 Days tab 03/16/22 rOPINIRole HCL [Requip] 2 mg PO DAILY 30 Days tab 03/16/22 Pregabalin 50 mg PO TID 3 Days #9 cap 05/01/22 Allergies Allergy/AdvReac Type Severity Reaction Status Date / Time Iodinated Contrast Media AdvReac Unknown Verified 02/24/23 18:34 Review of Systems ROS Statement: Those systems with pertinent positive or pertinent negative responses have been documented in the HPI. ROS Other: All systems not noted in ROS Statement are negative. 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 Anemia (2023), History of Any Multi-Drug Resistant Organisms: None Reported Past Surgical History: Heart Catheterization With Stent Additional Past Surgical History / Comment(s): pt reports benign abdominal tumer removed "years ago" Past Anesthesia/Blood Transfusion Reactions: No Reported Reaction Date of Last Stent Placement:: 02/04/21 Past Psychological History: Depression, PTSD Smoking Status: Former smoker Past Alcohol Use History: None Reported Past Drug Use History: None Reported - Past Family History Father History Unknown: Yes Family Medical History: Coronary Artery Disease (CAD), Diabetes Mellitus Additional Family Medical History / Comment(s): hemophilia Mother Family Medical History: Diabetes Mellitus General Exam - General Exam Comments Initial Comments: GENERAL: Patient is well-developed and well-nourished. Patient is nontoxic and well- hydrated and is in mild distress. I took the patient's oral temperature was 101.2 ENT: Neck is soft and supple. No significant lymphadenopathy is noted. Oropharynx is clear. Moist mucous membranes. Neck has full range of motion without eliciting any pain. EYES: The sclera were anicteric and conjunctiva were pink and moist. Extraocular movements were intact and pupils were equal round and reactive to light. Eyel ids were unremarkable. PULMONARY: Unlabored respirations. Good breath sounds bilaterally. No audible rales rhonchi or wheezing was noted. CARDIOVASCULAR: There is a regular rate and rhythm without any murmurs gallops or rubs. ABDOMEN: Soft and nontender with normal bowel sounds. SKIN: Skin is clear with no lesions or rashes and otherwise unremarkable. NEUROLOGIC: Patient is alert and oriented x3. Cranial nerves II through XII are grossly intact. Motor and sensory are also intact. Normal speech, volume and content. Symmetrical smile. MUSCULOSKELETAL: Normal extremities with adequate strength and full range of motion. LYMPHATICS: No significant lymphadenopathy is noted PSYCHIATRIC: Normal psychiatric evaluation. Limitations: no limitations Course Vital Signs 12/05/23 12/05/23 12/05/23 14:02 14:48 17:20 Temperature 99.2 F 101.3 F H 98.4 F Pulse Rate 76 73 Respiratory 18 20 Rate Blood Pressure 128/68 132/72 O2 Sat by Pulse 91 L 99 Oximetry Medical Decision Making - Medical Decision Making EKG is interpreted by myself but EKG shows a sinus rhythm at 79 bpm parables 178 QRS is 104 QT interval 355 QTc is 390. Patient's EKG shows no ST segment ovation or depression. Was pt. sent in by a medical professional or institution (, PA, DIGITAL HARDWARE DESIGN ENGINEER, urgent care, hospital, or intermediate...) When possible be specific @ -No Did you speak to anyone other than the patient for history (EMS, parent, family, police, friend...)? What history was obtained from this source @ -No Did you review nursing and triage notes (agree or disagree)? Why? @ -I reviewed and agree with nursing and triage notes Were old charts reviewed (outside hosp., previous admission, EMS record, old EKG, old radiological studies, urgent care reports/EKG's, intermediate records)? Report findings @ -I reviewed prior charts and prior lab work Differential Diagnosis (chest pain, altered mental status, abdominal pain women, abdominal pain men, vaginal bleeding, weakness, fever, dyspnea, syncope, headache, dizziness, GI bleed, back pain, seizure, CVA, palpatations, mental health, musculoskeletal)? @ -Differential Dyspnea: Coronary syndrome, arrhythmia, tamponade, asthma, COPD, pulmonary embolism, pneumonia, pneumothorax, pulmonary effusion, anaphylaxis, diabetic ketoacidosis, flailed chest, pulmonary contusion, diaphragmatic rupture, anemia, neuromuscular, this is not meant to be an all-inclusive list. EKG interpreted by me (3pts min.). @ -As above X-rays interpreted by me (1pt min.). @ -Chest x-ray shows no acute abnormality CT interpreted by me (1pt min.). @ -None done U/S interpreted by me (1pt. min.). @ -None done What testing was considered but not performed or refused? (CT, X-rays, U/S, labs)? Why? @ -None What meds were considered but not given or refused? Why? @ -None Did you discuss the management of the patient with other professionals (professionals i.e. , PA, DIGITAL HARDWARE DESIGN ENGINEER, lab, RT, psych nurse, clinical social worker, car builder, teacher, special technical operations officer, case assistant)? Give summary @ -No Was smoking cessation discussed for >3mins.? @ -No Was critical care preformed (if so, how long)? @ -No Were there social determinants of health that impacted care today? How? (Homelessness, low income, unemployed, alcoholism, drug addiction, tra nsportation, low edu. Level, literacy, decrease access to med. care, [facility], rehab)? @ -No Was there de-escalation of care discussed even if they declined (Discuss DNR or withdrawal of care, Hospice)? DNR status @ -No What co-morbidities impacted this encounter? (DM, HTN, Smoking, COPD, CAD, Cancer, CVA, ARF, Chemo, Hep., AIDS, mental health diagnosis, sleep apnea, morbid obesity)? @ -None Was patient admitted / discharged? Hospital course, mention meds given and route, prescriptions, significant lab abnormalities, going to OR and other pertinent info. @ -Patient vitals were stable oxygenation was good patient was COVID-positive. X-ray was normal. Patient will be discharged home with instructions to return if there is any difficulty breathing. Patient will keep his fever down and will drink fluids. Undiagnosed new problem with uncertain prognosis? @ -No Drug Therapy requiring intensive monitoring for toxicity (Heparin, Nitro, Insulin, Cardizem)? @ -No Were any procedures done? @ -No Diagnosis/symptom? @ -COVID-19 Acute, or Chronic, or Acute on Chronic? @ -Acute Uncomplicated (without systemic symptoms) or Complicated (systemic symptoms)? @ -Complicated Side effects of treatment? @ -No Exacerbation, Progression, or Severe Exacerbation? @ -No Poses a threat to life or bodily function? How? (Chest pain, [place], [place], pneumonia, PE, COPD, DKA, ARF, appy, cholecystitis, CVA, Diverticulitis, Homicidal, Suicidal, threat to staff... and all critical care pts) @ -No Diagnosis/symptom? @ -Hypomagnesemia Acute, or Chronic, or Acute on Chronic? @ -Acute Uncomplicated (without systemic symptoms) or Complicated (systemic symptoms)? @ -Complicated Side effects of treatment? @ -None Exacerbation, Progression, or Severe Exacerbation] @ -No Poses a threat to life or bodily function? @ -No - Lab Data Result diagrams: 12/05/23 14:15 12/05/23 14:15 Lab Results 12/05/23 12/05/23 12/05/23 Range/Units 14:15 14:15 14:15 WBC 8.4 (3.8-10.6) k/uL RBC 4.60 (4.30-5.90) m/uL Hgb 10.9 L (13.0-17.5) gm/dL Hct 33.2 L (39.0-53.0) % MCV 72.3 L (80.0-100.0) fL MCH 23.7 L (25.0-35.0) pg MCHC 32.7 (31.0-37.0) g/dL RDW 17.0 H (11.5-15.5) % Plt Count 402 (150-450) k/uL MPV 6.4 Neutrophils % 80 % Lymphocytes % 10 % Monocytes % 6 % Eosinophils % 2 % Basophils % 1 % Neutrophils # 6.7 (1.3-7.7) k/uL Lymphocytes # 0.9 L (1.0-4.8) k/uL Monocytes # 0.5 (0-1.0) k/uL Eosinophils # 0.2 (0-0.7) k/uL Basophils # 0.1 (0-0.2) k/uL Hypochromasia Moderate Anisocytosis Slight Microcytosis Moderate PT 11.1 (10.0-12.5) sec INR 1.0 (<1.2) APTT 25.1 (22.0-30.0) sec Sodium 133 L (137-145) mmol/L Potassium 4.1 (3.5-5.1) mmol/L Chloride 100 (98-107) mmol/L Carbon Dioxide 25 (22-30) mmol/L Anion Gap 8 mmol/L BUN 28 H (9-20) mg/dL Creatinine 1.04 (0.66-1.25) mg/dL Est GFR (CKD-EPI)AfAm 85 (>60 ml/min/1.73 sqM) Est GFR (CKD-EPI)NonAf 73 (>60 ml/min/1.73 sqM) Glucose 206 H (74-99) mg/dL Lactic Ac Sepsis Rflx Plasma Lactic Acid Guero (0.7-2.0) mmol/L Calcium 9.3 (8.4-10.2) mg/dL Magnesium (1.6-2.3) mg/dL Total Bilirubin 0.5 (0.2-1.3) mg/dL AST 23 (17-59) U/L ALT 18 (4-49) U/L Alkaline Phosphatase 92 (38-126) U/L Troponin I (0.000-0.034) ng/mL Total Protein 6.5 (6.3-8.2) g/dL Albumin 3.7 (3.5-5.0) g/dL Influenza Type A (PCR) (Not Detectd) Influenza Type B (PCR) (Not Detectd) RSV (PCR) (Not Detectd) SARS-CoV-2 (PCR) (Not Detectd) Blood Type Blood Type Confirm Blood Type Recheck Bld Type Recheck Status Antibody Screen Spec Expiration Date 12/05/23 12/05/23 12/05/23 Range/Units 14:15 14:15 14:30 WBC (3.8-10.6) k/uL RBC (4.30-5.90) m/uL Hgb (13.0-17.5) gm/dL Hct (39.0-53.0) % MCV (80.0-100.0) fL MCH (25.0-35.0) pg MCHC (31.0-37.0) g/dL RDW (11.5-15.5) % Plt Count (150-450) k/uL MPV Neutrophils % % Lymphocytes % % Monocytes % % Eosinophils % % Basophils % % Neutrophils # (1.3-7.7) k/uL Lymphocytes # (1.0-4.8) k/uL Monocytes # (0-1.0) k/uL Eosinophils # (0-0.7) k/uL Basophils # (0-0.2) k/uL Hypochromasia Anisocytosis Microcytosis PT (10.0-12.5) sec INR (<1.2) APTT (22.0-30.0) sec Sodium (137-145) mmol/L Potassium (3.5-5.1) mmol/L Chloride (98-107) mmol/L Carbon Dioxide (22-30) mmol/L Anion Gap mmol/L BUN (9-20) mg/dL Creatinine (0.66-1.25) mg/dL Est GFR (CKD-EPI)AfAm (>60 ml/min/1.73 sqM) Est GFR (CKD-EPI)NonAf (>60 ml/min/1.73 sqM) Glucose (74-99) mg/dL Lactic Ac Sepsis Rflx Plasma Lactic Acid Guero (0.7-2.0) mmol/L Calcium (8.4-10.2) mg/dL Magnesium (1.6-2.3) mg/dL Total Bilirubin (0.2-1.3) mg/dL AST (17-59) U/L ALT (4-49) U/L Alkaline Phosphatase (38-126) U/L Troponin I <0.012 (0.000-0.034) ng/mL Total Protein (6.3-8.2) g/dL Albumin (3.5-5.0) g/dL Influenza Type A (PCR) (Not Detectd) Influenza Type B (PCR) (Not Detectd) RSV (PCR) (Not Detectd) SARS-CoV-2 (PCR) (Not Detectd) Blood Type A Negative Blood Type Confirm A Negative Blood Type Recheck No Previous Record Bld Type Recheck Status CABO Indicated Antibody Screen NEGATIVE Spec Expiration Date 12/08/2023 - 231412/05/23 12/05/23 12/05/23 Range/Units 15:17 15:17 15:17 WBC (3.8-10.6) k/uL RBC (4.30-5.90) m/uL Hgb (13.0-17.5) gm/dL Hct (39.0-53.0) % MCV (80.0-100.0) fL MCH (25.0-35.0) pg MCHC (31.0-37.0) g/dL RDW (11.5-15.5) % Plt Count (150-450) k/uL MPV Neutrophils % % Lymphocytes % % Monocytes % % Eosinophils % % Basophils % % Neutrophils # (1.3-7.7) k/uL Lymphocytes # (1.0-4.8) k/uL Monocytes # (0-1.0) k/uL Eosinophils # (0-0.7) k/uL Basophils # (0-0.2) k/uL Hypochromasia Anisocytosis Microcytosis PT (10.0-12.5) sec INR (<1.2) APTT (22.0-30.0) sec Sodium (137-145) mmol/L Potassium (3.5-5.1) mmol/L Chloride (98-107) mmol/L Carbon Dioxide (22-30) mmol/L Anion Gap mmol/L BUN (9-20) mg/dL Creatinine (0.66-1.25) mg/dL Est GFR (CKD-EPI)AfAm (>60 ml/min/1.73 sqM) Est GFR (CKD-EPI)NonAf (>60 ml/min/1.73 sqM) Glucose (74-99) mg/dL Lactic Ac Sepsis Rflx Plasma Lactic Acid Guero 2.1 H* (0.7-2.0) mmol/L Calcium (8.4-10.2) mg/dL Magnesium 1.3 L (1.6-2.3) mg/dL Total Bilirubin (0.2-1.3) mg/dL AST (17-59) U/L ALT (4-49) U/L Alkaline Phosphatase (38-126) U/L Troponin I (0.000-0.034) ng/mL Total Protein (6.3-8.2) g/dL Albumin (3.5-5.0) g/dL Influenza Type A (PCR) Not Detected (Not Detectd) Influenza Type B (PCR) Not Detected (Not Detectd) RSV (PCR) Not Detected (Not Detectd) SARS-CoV-2 (PCR) Detected A (Not Detectd) Blood Type Blood Type Confirm Blood Type Recheck Bld Type Recheck Status Antibody Screen Spec Expiration Date 12/05/23 Range/Units 16:33 WBC (3.8-10.6) k/uL RBC (4.30-5.90) m/uL Hgb (13.0-17.5) gm/dL Hct (39.0-53.0) % MCV (80.0-100.0) fL MCH (25.0-35.0) pg MCHC (31.0-37.0) g/dL RDW (11.5-15.5) % Plt Count (150-450) k/uL MPV Neutrophils % % Lymphocytes % % Monocytes % % Eosinophils % % Basophils % % Neutrophils # (1.3-7.7) k/uL Lymphocytes # (1.0-4.8) k/uL Monocytes # (0-1.0) k/uL Eosinophils # (0-0.7) k/uL Basophils # (0-0.2) k/uL Hypochromasia Anisocytosis Microcytosis PT (10.0-12.5) sec INR (<1.2) APTT (22.0-30.0) sec Sodium (137-145) mmol/L Potassium (3.5-5.1) mmol/L Chloride (98-107) mmol/L Carbon Dioxide (22-30) mmol/L Anion Gap mmol/L BUN (9-20) mg/dL Creatinine (0.66-1.25) mg/dL Est GFR (CKD-EPI)AfAm (>60 ml/min/1.73 sqM) Est GFR (CKD-EPI)NonAf (>60 ml/min/1.73 sqM) Glucose (74-99) mg/dL Lactic Ac Sepsis Rflx Y Plasma Lactic Acid Guero (0.7-2.0) mmol/L Calcium (8.4-10.2) mg/dL Magnesium (1.6-2.3) mg/dL Total Bilirubin (0.2-1.3) mg/dL AST (17-59) U/L ALT (4-49) U/L Alkaline Phosphatase (38-126) U/L Troponin I (0.000-0.034) ng/mL Total Protein (6.3-8.2) g/dL Albumin (3.5-5.0) g/dL Influenza Type A (PCR) (Not Detectd) Influenza Type B (PCR) (Not Detectd) RSV (PCR) (Not Detectd) SARS-CoV-2 (PCR) (Not Detectd) Blood Type Blood Type Confirm Blood Type Recheck Bld Type Recheck Status Antibody Screen Spec Expiration Date Disposition Clinical Impression: COVID-19, Hypomagnesemia Disposition: HOME SELF-CARE Condition: Good Instructions (If sedation given, give patient instructions): Coronavirus Disease 2019 (COVID-19) Is patient prescribed a controlled substance at d/c from ED?: No Referrals: Khari Gonzáles MD [Primary Care Provider] - 1-2 days Time of Disposition: 17:36
[2023-12-05] MEDS: IBUPROFEN 600 MG TAB PO STA (16:08)
[2023-12-05] MEDS: ACETAMINOPHEN TAB 500 MG TAB PO STA (16:08)
--- NOTE | 2023-12-05 16:33 | XR ---
EXAMINATION: XR chest 2V: 12/05/2023 4:23 PM CLINICAL INDICATION: Weakness TECHNIQUE: Departmental protocol COMPARISON: 02/24/2023 FINDINGS: The overlying soft tissues are prominent. The lungs appear to be clear. The pleural spaces are negative. The cardiac silhouette appears mildly enlarged. The skeletal structures and soft tissues are negative for acute findings. IMPRESSION: No definite acute radiographic process.
[2023-12-05] MEDS: SODIUM CHLORIDE 0.9% 500 ML 500 ML IV ONE (17:21)
[2023-12-05] MEDS: MAGNESIUM SULFATE-D5W PMX 1 GM in DEXTROSE/WATER 1 100ML.BAG IVPB SCH (17:22)
[2023-12-05 17:40] VITALS: RESP 20
[2023-12-05 19:57] VITALS: BP 116/57; PULSE 71; TEMP 98.6
== END 2023-12-05 19:49 | disposition home or self-care (01) ==
LOC: EC 13:52
DX: U07.1 COVID-19 (principal); E83.42 Hypomagnesemia; I10 Essential (primary) hypertension; I25.10 Atherosclerotic heart disease of native coronary artery without angina pectoris; J45.909 Unspecified asthma, uncomplicated; E11.9 Type 2 diabetes mellitus without complications; Z87.891 Personal history of nicotine dependence; Z91.041 Radiographic dye allergy status; Z86.59 Personal history of other mental and behavioral disorders
CPT/HCPCS: 36415; 93005; 86900; 86901; 80053; 83605; 83735; 84484; 85025; 85610; 85730; 86850; 87636; 71046; 99285; 96365; 96366; J3475

== ENCOUNTER → 2024-01-05 | Outpatient (CLI) | payer MEDICARE, OTHER ==
[2024-01-05 15:37] LABS: African American GFR (CKD) >90 (>60 ml/min/1.73 sqM); Blood Urea Nitrogen 28 mg/dL (9-20); Non-African American GFR(CKD) 79 (>60 ml/min/1.73 sqM)
== END | disposition home or self-care (01) ==
LOC: RADCTMAIN 12-28 12:43
PROVIDERS: ATTEND Family Medicine
DX: Z53.9 Procedure and treatment not carried out, unspecified reason (principal)
CPT/HCPCS: 82565; 84520; 74177; 36415; Q9967

== ENCOUNTER 2024-09-24 16:42 | Observation (INO) | payer MEDICARE, OTHER ==
[2024-09-24 18:39] LABS: Basophils % (A) 0 %; Eosinophils # (A) 0.2 k/uL (0-0.7); Eosinophils % (A) 2 %; HCT 40.1 % (39.0-53.0); HGB 13.2 gm/dL (13.0-17.5); Lymphocytes # (A) 1.5 k/uL (1.0-4.8); Lymphocytes % (A) 13 %; MCH 27.5 pg (25.0-35.0); MCHC 32.8 g/dL (31.0-37.0); MCV 83.7 fL (80.0-100.0); Mean Platelet Volume 6.5; Monocytes # (A) 0.6 k/uL (0-1.0); Monocytes % (A) 5 %; Neutrophils # (A) 9.1 k/uL (1.3-7.7); Neutrophils % (A) 79 %; Platelet Count 320 k/uL (150-450); RBC 4.79 m/uL (4.30-5.90); RDW 15.3 % (11.5-15.5); WBC 11.6 k/uL (3.8-10.6)
[2024-09-24 18:50] LABS: ALT 32 U/L (4-49); AST 29 U/L (17-59); African American GFR (CKD) >90 (>60 ml/min/1.73 sqM); Albumin 4.1 g/dL (3.5-5.0); Alkaline Phosphatase 102 U/L (38-126); Anion Gap 5 mmol/L; Blood Urea Nitrogen 15 mg/dL (9-20); Calcium 9.1 mg/dL (8.4-10.2); Carbon Dioxide 23 mmol/L (22-30); Chloride 107 mmol/L (98-107); Glucose 164 mg/dL (74-99); Magnesium 1.4 mg/dL (1.6-2.3); Non-African American GFR(CKD) >90 (>60 ml/min/1.73 sqM); Potassium 4.6 mmol/L (3.5-5.1); Sodium 135 mmol/L (137-145); Total Bilirubin 0.8 mg/dL (0.2-1.3)
[2024-09-24 18:58] LABS: NT-Pro-B-Type Natriuretic Pept 162 pg/mL
[2024-09-24 18:59] LABS: Partial Thromboplastin Time 24.1 sec (22.0-30.0); Prothrombin Time 10.9 sec (10.0-12.5)
--- NOTE | 2024-09-24 19:04 | XR ---
EXAMINATION TYPE: XR chest 2V DATE OF EXAM: 09/24/2024 6:46 PM COMPARISON: Chest radiographs from 12/05/2023 CLINICAL INDICATION: Male, 69 years old with history of Chest Pain; [facility] TECHNIQUE: XR chest 2V Frontal and lateral views of the chest. FINDINGS: Lungs/Pleura: There is no evidence of pleural effusion, focal consolidation, or pneumothorax. Pulmonary vascularity: Unremarkable. Heart/mediastinum: Cardiomediastinal silhouette is unremarkable. Musculoskeletal: No acute osseous pathology. IMPRESSION: No acute cardiopulmonary disease/process. [facility], , 09/24/2024 7:02 PM
--- NOTE | 2024-09-24 20:14 | ED ---
Chest Pain HPI - General Chief Complaint: Chest Pain Stated Complaint: chest pain/high BP/dizzy Time Seen by Provider: 09/24/24 16:54 Source: patient Mode of arrival: wheelchair Limitations: no limitations - History of Present Illness Initial Comments: 69-year-old male with past medical history of coronary disease, hypertension, diabetes who presents to the emergency department from his primary care office. He went in for a follow-up appointment to see Dr. Gonzáles. He was complaining of chest pain. He had elevated blood pressures. It was recommended that the patient come to the hospital for his symptoms. He does admit to stents in his heart. He was just prescribed nitro today. Previously did not have it to use. He does admit that the pain has improved somewhat upon hospital arrival. His blood pressure is elevated. States he did not take his blood pressure medications today. He does admit to mild headache. No visual disturbance. No lateralizing weakness. Admits to some nausea. No other alleviating, precipitating or modifying factors - Related Data Home Medications Medication Instructions Recorded Confirmed Atorvastatin [Lipitor] 80 mg PO HS 09/24/24 09/24/24 DULoxetine HCL [Cymbalta] 60 mg PO BID 09/24/24 09/24/24 Dulaglutide [Trulicity] 0.75 mg SQ FR 09/24/24 09/24/24 Gabapentin [Neurontin] 800 mg PO TID 09/24/24 09/24/24 Insulin Aspart [NovoLOG Flexpen] 8 units SQ TID-W/MEALS 09/24/24 09/24/24 Insulin Degludec [Tresiba 60 units SQ DAILY 09/24/24 09/24/24 Flextouch U-100 Pen] Losartan [Cozaar] 50 mg PO DAILY 09/24/24 09/24/24 Metoprolol Tartrate [Lopressor] 50 mg PO BID 09/24/24 09/24/24 Montelukast [Singulair] 10 mg PO DAILY 09/24/24 09/24/24 Nitroglycerin Sl Tabs [Nitrostat] 0.4 mg SUBLINGUAL Q5M PRN 09/24/24 09/24/24 Pioglitazone [Actos] 15 mg PO DAILY 09/24/24 09/24/24 buPROPion [Wellbutrin] 100 mg PO DAILY 09/24/24 09/24/24 metFORMIN HCL 500 mg PO BID 09/24/24 09/24/24 Allergies Allergy/AdvReac Type Severity Reaction Status Date / Time Iodinated Contrast Media AdvReac Unknown Verified 09/24/24 19:43 Review of Systems ROS Statement: Those systems with pertinent positive or pertinent negative responses have been documented in the HPI. ROS Other: All systems not noted in ROS Statement are negative. 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 Anemia (2023), History of Any Multi-Drug Resistant Organisms: None Reported Past Surgical History: Heart Catheterization With Stent Additional Past Surgical History / Comment(s): pt reports benign abdominal tumer removed "years ago" Past Anesthesia/Blood Transfusion Reactions: No Reported Reaction Date of Last Stent Placement:: 02/04/21 Past Psychological History: Depression, PTSD Smoking Status: Former smoker Past Alcohol Use History: None Reported Past Drug Use History: None Reported - Past Family History Father History Unknown: Yes Family Medical History: Coronary Artery Disease (CAD), Diabetes Mellitus Additional Family Medical History / Comment(s): hemophilia Mother Family Medical History: Diabetes Mellitus General Exam Limitations: no limitations General appearance: alert, in no apparent distress Head exam: Present: atraumatic, normocephalic, normal inspection Eye exam: Present: normal appearance, PERRL, EOMI. Absent: scleral icterus, conjunctival injection, periorbital swelling ENT exam: Present: normal exam, mucous membranes moist Neck exam: Present: normal inspection. Absent: tenderness, meningismus, lymphadenopathy Respiratory exam: Present: normal lung sounds bilaterally. Absent: respiratory distress, wheezes, rales, rhonchi, stridor Cardiovascular Exam: Present: regular rate, normal rhythm, normal heart sounds. Absent: systolic murmur, diastolic murmur, rubs, gallop, clicks GI/Abdominal exam: Present: soft, normal bowel sounds. Absent: distended, tenderness, guarding, rebound, rigid Extremities exam: Present: normal inspection, full ROM, normal capillary refill. Absent: tenderness, pedal edema, joint swelling, calf tenderness Back exam: Present: normal inspection Neurological exam: Present: alert, oriented X3, CN II-XII intact Psychiatric exam: Present: normal affect, normal mood Skin exam: Present: warm, dry, intact, normal color. Absent: rash Course Vital Signs 09/24/24 09/24/24 09/24/24 16:45 18:32 20:00 Temperature 97.7 F Pulse Rate 72 73 70 Pulse Rate [ 71 [employer] ] Respiratory 20 20 20 Rate Blood Pressure 146/120 184/78 149/58 O2 Sat by Pulse 99 100 99 Oximetry 09/24/24 09/24/24 22:00 22:55 Temperature 97 F L 98.0 F Pulse Rate 67 62 Pulse Rate [ [employer] ] Respiratory 17 20 Rate Blood Pressure 150/76 146/70 O2 Sat by Pulse 98 98 Oximetry Chest Pain MDM - MDM Was pt. sent in by a medical professional or institution (, PA, FABRIC WORKER SUPERVISOR, urgent care, hospital, or assisted...) When possible be specific @ -No Did you speak to anyone other than the patient for history (EMS, parent, family, police, friend...)? What history was obtained from this source @ -No Did you review nursing and triage notes (agree or disagree)? Why? @ -I reviewed and agree with nursing and triage notes Were old charts reviewed (outside hosp., previous admission, EMS record, old EKG, old radiological studies, urgent care reports/EKG's, assisted records)? Report findings @ -No old charts were reviewed Differential Diagnosis (chest pain, altered mental status, abdominal pain women, abdominal pain men, vaginal bleeding, weakness, fever, dyspnea, syncope, headache, dizziness, GI bleed, back pain, seizure, CVA, palpatations, mental health, musculoskeletal)? @ -Differential Chest Pain: Stable Angina, Unstable Angina, STEMI, NSTEMI Aortic Dissection, Pneumothorax, Musculoskeletal, Esophageal Spasm GERD, Cholecystitis, Pancreatitis, Zoster, this is not meant to be an all-inclusive list. EKG interpreted by me (3pts min.). Yes completed at 1654 demonstrates sinus rhythm with a rate of 72. VT interval 182. QRS 127. QTc of 413. No acute ST segment elevations or depressions @ -Yes completed at 1701 and demonstrates sinus rhythm with a rate of 75. VT interval 179. QRS 110. QTc of 419. No acute ST segment elevations or depressions X-rays interpreted by me (1pt min.). @ -Yes and demonstrates no acute process CT interpreted by me (1pt min.). @ -None done U/S interpreted by me (1pt. min.). @ -None done What testing was considered but not performed or refused? (CT, X-rays, U/S, labs)? Why? @ -None What meds were considered but not given or refused? Why? @ -None Did you discuss the management of the patient with other professionals (professionals i.e. , PA, FABRIC WORKER SUPERVISOR, lab, RT, psych nurse, social psychologist, employee benefits manager, teacher, flight radio officer, transplant case manager)? Give summary @Spoke with Dr. Gonzáles for the admission Was smoking cessation discussed for >3mins.? @ -No Was critical care preformed (if so, how long)? @ -No Were there social determinants of health that impacted care today? How? (Homelessness, low income, unemployed, alcoholism, drug addiction, transportation, low edu. Level, literacy, decrease access to med. care, senior living, rehab)? @ -No Was there de-escalation of care discussed even if they declined (Discuss DNR or withdrawal of care, Hospice)? DNR status @ -No What co-morbidities impacted this encounter? (DM, HTN, Smoking, COPD, CAD, Cancer, CVA, ARF, Chemo, Hep., AIDS, mental health diagnosis, sleep apnea, morbid obesity)? @ -Coronary disease Was patient admitted / discharged? Hospital course, mention meds given and route, prescriptions, significant lab abnormalities, going to OR and other pertinent info. @ -Upon arrival patient seen and evaluated in bed 19. Thorough history and physical exam was performed. IV access was established. Laboratory studies are conducted. Chest x-ray was performed. Results are discussed with the patient. I did recommend admission for which the patient was agreeable. I did order all of his home medications. I will trend his troponins. Patient agreeable to the admission was taken to the floor in stable condition Undiagnosed new problem with uncertain prognosis? @ -No Drug Therapy requiring intensive monitoring for toxicity (Heparin, Nitro, Insulin, Cardizem)? @ -No Were any procedures done? @ -No Diagnosis/symptom? @ -Acute chest pain, accelerated hypertension Acute, or Chronic, or Acute on Chronic? @ -Acute Uncomplicated (without systemic symptoms) or Complicated (systemic symptoms)? @ -Complicated Side effects of treatment? @ -No Exacerbation, Progression, or Severe Exacerbation? @ -No Poses a threat to life or bodily function? How? (Chest pain, USA, MS, pneumonia, PE, COPD, DKA, ARF, appy, cholecystitis, CVA, Diverticulitis, Homicidal, Suicidal, threat to staff... and all critical care pts) @ -No Disposition Clinical Impression: Chest pain, Hyperglycemia, Accelerated hypertension Disposition: ADMITTED IP TO THIS [facility] Condition: Stable Is patient prescribed a controlled substance at d/c from ED?: No Time of Disposition: 20:14 Decision to Admit Reason: Admit from EC Decision Date: 09/24/24 Decision Time: 20:14
[2024-09-24] MEDS ORDERED: NALOXONE 0.4 MG/ML 1 ML VIAL IV PRN (20:22)
[2024-09-24] MEDS: ASPIRIN 81 MG PO STA (21:18)
[2024-09-24] MEDS: metFORMIN 500 MG TAB PO SCH (21:18)
[2024-09-24] MEDS: NITROGLYCERIN OINT 1 INCH/GM PACKET TOPICAL STA (21:18)
[2024-09-24] MEDS: GABAPENTIN 400 MG CAP PO SCH (21:19)
[2024-09-24] MEDS: METOPROLOL TARTRATE 50 MG TAB PO SCH (21:19)
[2024-09-24] MEDS: DULoxetine HCL 60 MG CAPSULE.DR PO SCH (21:19)
[2024-09-24] MEDS: MAGNESIUM SULFATE-D5W PMX 1 GM in DEXTROSE/WATER 1 100ML.BAG IVPB SCH (21:19)
[2024-09-24] MEDS: ATORVASTATIN 80 MG TAB PO SCH (21:19)
[2024-09-24] MEDS: LOSARTAN 50 MG TAB PO SCH (21:47)
--- NOTE | 2024-09-25 00:37 | HP ---
HISTORY AND PHYSICAL CHIEF COMPLAINT: Chest pain, uncontrolled diabetes, hypertension, and depression. HISTORY OF PRESENT ILLNESS: This gentleman presented to the emergency room with uncontrolled diabetes and hypertension. He also was experiencing chest pain. He has a history of congestive heart failure and he also has diabetes, which is poorly controlled. REVIEW OF SYSTEMS: Otherwise unremarkable. Remainder of his history is unremarkable. PHYSICAL EXAMINATION: VITAL SIGNS: Blood pressure is 185/105, respirations were normal. GENERAL: He was obese. HEAD, EARS, EYES, NOSE, MOUTH, AND THROAT: Unremarkable. CHEST: Clear. CARDIAC: Normal. ABDOMEN: Soft, nontender. 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 IMPRESSION: 1. Chest pain. 2. Uncontrolled hypertension. 3. Uncontrolled diabetes. 4. Depression. PLAN: 1. Bed rest. 2. IV fluids. 3. Control hypertension. 4. Control diabetes. MMODL / IJN: [id number] /
[2024-09-25 03:41] LABS: Basophils % (A) 0 %; Eosinophils # (A) 0.2 k/uL (0-0.7); Eosinophils % (A) 2 %; HCT 37.5 % (39.0-53.0); HGB 11.9 gm/dL (13.0-17.5); Hypochromasia Slight; Lymphocytes % (A) 22 %; MCH 27.2 pg (25.0-35.0); MCHC 31.6 g/dL (31.0-37.0); Mean Platelet Volume 7.6; Monocytes # (A) 0.6 k/uL (0-1.0); Monocytes % (A) 7 %; Neutrophils # (A) 6.5 k/uL (1.3-7.7); Neutrophils % (A) 69 %; Platelet Count 326 k/uL (150-450); RBC 4.37 m/uL (4.30-5.90); RDW 15.2 % (11.5-15.5); WBC 9.5 k/uL (3.8-10.6)
[2024-09-25 03:49] LABS: African American GFR (CKD) >90 (>60 ml/min/1.73 sqM); Anion Gap 9 mmol/L; Blood Urea Nitrogen 16 mg/dL (9-20); Calcium 8.8 mg/dL (8.4-10.2); Carbon Dioxide 22 mmol/L (22-30); Chloride 103 mmol/L (98-107); Glucose 287 mg/dL (74-99); Non-African American GFR(CKD) 83 (>60 ml/min/1.73 sqM); Potassium 3.8 mmol/L (3.5-5.1); Sodium 134 mmol/L (137-145)
[2024-09-25 07:46] LABS: Glucose,Whole Blood 152 mg/dL (70-110)
[2024-09-25] MEDS: MONTELUKAST 10 MG TAB PO SCH (08:44)
[2024-09-25] MEDS: INSULIN ASPART (NovoLOG) 100 UNIT/ML VIAL SQ SCH (10:48)
[2024-09-25] MEDS: INSULIN DETEMIR (LEVEMIR) 100 UNIT/ML SYR SQ SCH (10:49)
[2024-09-25] MEDS: PIOGLITAZONE 15 MG TAB PO SCH (10:50)
[2024-09-25] MEDS: buPROPion 100 MG TAB PO SCH (10:50)
[2024-09-25] MEDS: ASPIRIN 81 MG PO SCH (10:57)
--- NOTE | 2024-09-25 11:01 | US ---
EXAMINATION TYPE: US carotid duplex BILAT DATE OF EXAM: 09/25/2024 COMPARISON: NONE CLINICAL INDICATION: Male, 69 years old with history of left bruit; Additional History: .... TECHNIQUE: Grayscale, color Doppler and spectral Doppler evaluation of the bilateral carotid systems and vertebral arteries. Indirect Doppler criteria was utilized. FINDINGS: EXAM MEASUREMENTS: RIGHT: Peak Systolic Velocity (PSV) cm/sec ----- Right CCA: 86.6 ----- Right ICA: 153.5 ----- Right ECA: 144.7 ICA/CCA ratio: 1.8 RIGHT: End Diastole cm/sec ----- Right CCA: 10.2 ----- Right ICA: 13.6 ----- Right ECA: 10.9 LEFT: Peak Systolic Velocity (PSV) cm/sec ----- Left CCA: 78.8 ----- Left ICA: 134.5 ----- Left ECA: 267.5 ICA/CCA ratio: 1.7 LEFT: End Diastole cm/sec ----- Left CCA: 12.8 ----- Left ICA: 25.3 ----- Left ECA: 40.4 VERTEBRALS (direction of flow): Right Vertebral: Antegrade Left Vertebral: Antegrade Rhythm: Normal INFUSION RN NOTES: very limited scan due to body habitus and pathology Carotid plaque seen bilateral CCA extending into ICA & ECA, Elevated Velocities seen within bilateral ICA & ECA Color Doppler imaging shows patency with blood flow throughout the carotid artery. Spectral waveforms are within normal limits. IMPRESSION: Right: 50-69% stenosis of the carotid bifurcation suggested by peak systolic velocity. Left: 50-69% stenosis of the carotid bifurcation suggested by peak systolic velocity. Criteria for Assigning % of Stenosis / Diameter reduction (Estimation based on the indirect measurements of the internal carotid artery velocities (ICA PSV). 1. Normal (no stenosis)=ICA PSV < 125 cm/s: ratio < 2.0: ICA EDV<40 cm/s. 2. Less than 50% stenosis=ICA PSV < 125 cm/s: ratio < 2.0: ICA EDV<40 cm/s. 3. 50 to 69% stenosis=ICA PSV of 125 to 230 cm/s: ration 2.0 ? 4.0: ICA EDV 40-100 cm/s. 4. Greater than 70% stenosis to near occlusion= ICA PSV > 230 cm/s: ratio > 4.0: ICA EDV > 100 cm/s. 5. Near occlusion= ICA PSV velocities may be low or undetectable: variable ratio and ICA EDV. 6. Total occlusion=unable to detect flow. [facility], , 09/25/2024 10:58 AM
--- NOTE | 2024-09-25 12:10 | P.CRDCN ---
History of Present Illness Consult date: 09/25/24 Consult reason: chest pain (hx ascad, accelerated htn) History of present illness: This is a 69-year-old male patient previously seen by Dr. Sumner in 2020 with past medical history of coronary artery disease with previous stenting of the LAD and RCA, hypertension, dyslipidemia, obesity, diabetes. Patient states that he has had some difficulty personally and has not been able to come back into the office. He states he has suffered with major depression and is currently homeless since June and living out of his car. Patient presented to the hospital due to chest pain that was a dull ache in the left lateral chest wall and worse with any movement. He states he also felt cold and clammy. He does admit that he has not been taking his medications consistently. Patient presented with blood pressure 184/78. Blood pressure 128/66, heart rate 66, pulse ox 97% on room air. -EKG: Sinus rhythm with no acute ST changes -Chest x-ray: No acute findings -Laboratory studies: WBC was 11.6 and repeat 9.5, hemoglobin 9.9. Sodium 134, potassium 3.8, creatinine 0.93. Troponin negative x 3. proBNP 162. -Home cardiac medications: Atorvastatin 80 mg at bedtime, losartan 50 mg daily, Lopressor 50 mg twice daily, Nitrostat as needed. -02/04/21: Successful stenting of the mid RCA and proximal to mid LAD. -Echocardiogram performed 02/2022: EF 55 to 60%, no intracardiac mass. Review Of Systems: At the time of my exam: CONSTITUTIONAL: Denies fever or chills. HEENT: Denies blurred vision, vision changes, or eye pain. Denies hemoptysis CARDIOVASCULAR: Denies chest pain. Denies orthopnea. Denies PND. Denies palpitations RESPIRATORY: Denies shortness of breath. GASTROINTESTINAL: Denies abdominal pain. Denies nausea or vomiting. HEMATOLOGIC: Denies bleeding disorders. GENITOURINARY: Denies any blood in urine. SKIN: Denies puritis. Denies rash. Physical examination: Gen: This is a 69-year-old male in no acute distress VS: reviewed HEENT: Head is atraumatic, normocephalic. Pupils equal, round. Sclerae is anicteric. NECK: Supple. No JVD. Left carotid bruit. LUNGS: Clear to auscultation. No wheezes or rhonchi. No intercostal re tractions. HEART: Regular rate and rhythm. No murmur. ABDOMEN: Soft No tenderness. EXTREMITIES: No pedal edema. No calf tenderness. NEUROLOGICAL: Patient is awake, alert and oriented x3. Assessment: Atypical chest pain, acute coronary syndrome ruled out History of coronary artery disease with prior stenting of the LAD and RCA Rule out carotid artery disease Diabetes mellitus type 2 Depression Homelessness Hypertension Dyslipidemia Obesity Plan: Resume patient's home cardiac medications Start patient on aspirin 81 mg daily Obtain A1c Obtain 2-D echocardiogram and Doppler study to assess cardiac structure and function Obtain carotid ultrasound Social work consult regarding homelessness Plan for stress testing once patient's blood pressure is controlled, possibly as an outpatient Further recommendations to follow based upon clinical course Thank you kindly for this consultation. Nurse practitioner note has been reviewed, I agree with documented findings and plan of care. Patient was seen and examined. 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 Anemia (2023), History of Any Multi-Drug Resistant Organisms: None Reported Past Surgical History: Heart Catheterization With Stent Additional Past Surgical History / Comment(s): pt reports benign abdominal tumer removed "years ago" Past Anesthesia/Blood Transfusion Reactions: No Reported Reaction Date of Last Stent Placement:: 02/04/21 Past Psychological History: Depression, PTSD Smoking Status: Former smoker Past Alcohol Use History: None Reported Past Drug Use History: None Reported - Past Family History Father History Unknown: Yes Family Medical History: Coronary Artery Disease (CAD), Diabetes Mellitus Additional Family Medical History / Comment(s): hemophilia Mother Family Medical History: Diabetes Mellitus Medications and Allergies Home Medications Medication Instructions Recorded Confirmed Type Atorvastatin [Lipitor] 80 mg PO HS 09/24/24 09/24/24 History DULoxetine HCL [Cymbalta] 60 mg PO BID 09/24/24 09/24/24 History Dulaglutide [Trulicity] 0.75 mg SQ FR 09/24/24 09/24/24 History Gabapentin [Neurontin] 800 mg PO TID 09/24/24 09/24/24 History Insulin Aspart [NovoLOG Flexpen] 8 units SQ TID-W/MEALS 09/24/24 09/24/24 History Insulin Degludec [Tresiba 60 units SQ DAILY 09/24/24 09/24/24 History Flextouch U-100 Pen] Losartan [Cozaar] 50 mg PO DAILY 09/24/24 09/24/24 History Metoprolol Tartrate [Lopressor] 50 mg PO BID 09/24/24 09/24/24 History Montelukast [Singulair] 10 mg PO DAILY 09/24/24 09/24/24 History Nitroglycerin Sl Tabs [Nitrostat] 0.4 mg SUBLINGUAL Q5M PRN 09/24/24 09/24/24 History Pioglitazone [Actos] 15 mg PO DAILY 09/24/24 09/24/24 History buPROPion [Wellbutrin] 100 mg PO DAILY 09/24/24 09/24/24 History metFORMIN HCL 500 mg PO BID 09/24/24 09/24/24 History Allergies Allergy/AdvReac Type Severity Reaction Status Date / Time Iodinated Contrast Media AdvReac Unknown Verified 09/24/24 19:43 Physical Exam Vitals: Vital Signs Temp Pulse Pulse Pulse Resp BP BP 09/25/24 07:00 98.4 F 66 16 128/66 09/25/24 03:13 97.8 F 65 15 121/54 09/24/24 23:36 97.5 F L 72 16 132/66 09/24/24 22:55 98.0 F 62 20 146/70 09/24/24 22:00 97 F L 67 17 150/76 09/24/24 20:00 70 20 149/58 09/24/24 18:32 73 71 20 184/78 09/24/24 16:45 97.7 F 72 20 146/120 Pulse Ox 09/25/24 07:00 97 09/25/24 03:13 98 09/24/24 23:36 98 09/24/24 22:55 98 09/24/24 22:00 98 09/24/24 20:00 99 09/24/24 18:32 100 09/24/24 16:45 99 Intake and Output 09/24/24 09/25/24 09/25/24 22:59 06:59 14:59 Other: Voiding Method Toilet # Voids 1 Weight 118.841 kg Results 09/24/24 21:33 09/24/24 21:33 Cardiac Enzymes 09/24/24 09/24/24 09/24/24 Range/Units 18:32 18:32 21:33 AST 29 (17-59) U/L Troponin I <0.012 <0.012 (0.000-0.034) ng/mL 09/25/24 Range/Units 00:02 AST (17-59) U/L Troponin I <0.012 (0.000-0.034) ng/mL Coagulation 09/24/24 Range/Units 18:32 PT 10.9 (10.0-12.5) sec APTT 24.1 (22.0-30.0) sec CBC 09/24/24 09/24/24 Range/Units 18:32 21:33 WBC 11.6 H 9.5 (3.8-10.6) k/uL RBC 4.79 4.37 (4.30-5.90) m/uL Hgb 13.2 11.9 L (13.0-17.5) gm/dL Hct 40.1 37.5 L (39.0-53.0) % Plt Count 320 326 (150-450) k/uL Comprehensive Metabolic Panel 09/24/24 09/24/24 Range/Units 18:32 21:33 Sodium 135 L 134 L (137-145) mmol/L Potassium 4.6 3.8 (3.5-5.1) mmol/L Chloride 107 103 (98-107) mmol/L Carbon Dioxide 23 22 (22-30) mmol/L BUN 15 16 (9-20) mg/dL Creatinine 0.79 0.93 (0.66-1.25) mg/dL Glucose 164 H 287 H (74-99) mg/dL Calcium 9.1 8.8 (8.4-10.2) mg/dL AST 29 (17-59) U/L ALT 32 (4-49) U/L Alkaline Phosphatase 102 (38-126) U/L Total Protein 7.0 (6.3-8.2) g/dL Albumin 4.1 (3.5-5.0) g/dL Current Medications Generic Name Dose Route Start Last Admin Trade Name Freq PRN Reason Stop Dose Admin Atorvastatin Calcium 80 mg 09/24/24 21:00 09/24/24 21:19 Atorvastatin 80 Mg Tab PO 80 mg HS SILVER Administration Bupropion HCl 100 mg 09/25/24 09:00 Bupropion 100 Mg Tab PO DAILY SILVER Duloxetine HCl 60 mg 09/24/24 21:00 09/24/24 21:19 Duloxetine Hcl 60 Mg Capsule.Dr PO 60 mg BID SILVER Administration Gabapentin 800 mg 09/24/24 22:00 09/24/24 21:19 Gabapentin 400 Mg Cap PO 800 mg TID SILVER Administration Insulin Aspart 8 unit 09/25/24 07:30 Insulin Aspart (Novolog) 100 Unit/Ml Vial SQ TID-W/MEALS SILVER Insulin Detemir 60 unit 09/25/24 07:00 Insulin Detemir (Levemir) 100 Unit/Ml Syr SQ DAILY@0700 [facility] Losartan Potassium 50 mg 09/24/24 20:30 09/24/24 21:47 Losartan 50 Mg Tab PO 50 mg DAILY SILVER Administration Metformin HCl 500 mg 09/24/24 21:00 09/24/24 21:18 Metformin 500 Mg Tab PO 500 mg BID SILVER Administration Metoprolol Tartrate 50 mg 09/24/24 21:00 09/24/24 21:19 Metoprolol Tartrate 50 Mg Tab PO 50 mg BID SILVER Administration Montelukast Sodium 10 mg 09/25/24 09:00 Montelukast 10 Mg Tab PO DAILY SILVER Morphine Sulfate 4 mg 09/24/24 20:22 Morphine Sulfate 4 Mg/Ml Syringe IV Q4HR PRN Severe Pain (Scale 7 to 10) Naloxone HCl 0.2 mg 09/24/24 20:22 Naloxone 0.4 Mg/Ml 1 Ml Vial IV Q2M PRN Opioid Reversal Pioglitazone HCl 15 mg 09/25/24 09:00 Pioglitazone 15 Mg Tab PO DAILY [facility] Intake and Output 09/24/24 09/25/24 09/25/24 22:59 06:59 14:59 Other: Voiding Method Toilet # Voids 1 Weight 118.841 kg 09/24/24 21:33 09/24/24 21:33
[2024-09-25 12:41] LABS: Glucose,Whole Blood 166 mg/dL (70-110)
[2024-09-25 17:10] LABS: Glucose,Whole Blood 173 mg/dL (70-110)
[2024-09-25 20:08] LABS: Glucose,Whole Blood 178 mg/dL (70-110)
[2024-09-25] MEDS: ALBUTEROL NEBULIZED 2.5 MG/3 ML INHALATION PRN (23:54)
--- NOTE | 2024-09-26 02:08 | PN ---
PROGRESS NOTE DATE OF SERVICE: 09/25/2024 CHIEF COMPLAINT: Chest pain, hypertensive urgency, and diabetes. HISTORY OF PRESENT ILLNESS: This gentleman is doing fairly well. Blood pressure has come down slightly. Blood sugars are still high and these will be addressed. PHYSICAL EXAMINATION: CHEST: Clear. CARDIAC: Normal. ABDOMEN: Protuberant, soft and nontender. IMPRESSION: 1. Uncontrolled hypertension. 2. Chest pain. 3. Uncontrolled diabetes. 4. Depression. PLAN: Progress activity and control diabetes. MMODL / IJN: [id number] /
[2024-09-26 05:49] LABS: Glucose,Whole Blood 119 mg/dL (70-110)
--- NOTE | 2024-09-26 07:36 | CA ---
Transthoracic Echo Report Name: Michael Wang Age: 69 Gender: M : 1955 Exam Date: 09/25/2024 17:15 Exam Location: [place] [facility] Ht (in): 68 Wt (lb): 262 Ordering Physician: Alea Schultz Attending/Referring Phys: [id number], Marion [employer] Yahaira Morgan, JOYCE Procedure CPT: Indications: LVF Cardiac Hx: HTN, DM Technical Quality: Technically difficult study Contrast 1: Total Dose (mL): Contrast 2: Total Dose (mL): MEASUREMENTS (Male / Female) Normal Values 2D ECHO LV Diastolic Diameter PLAX 4.8 cm 4.2 - 5.9 / 3.9 - 5.3 cm LV Systolic Diameter PLAX 3.1 cm IVS Diastolic Thickness 1.4 cm 0.6 - 1.0 / 0.6 - 0.9 cm LVPW Diastolic Thickness 1.4 cm 0.6 - 1.0 / 0.6 - 0.9 cm LV Relative Wall Thickness 0.6 RV Internal Dim ED PLAX 3.4 cm LA Systolic Diameter LX 3.7 cm 3.0 - 4.0 / 2.7 - 3.8 cm M-MODE Aortic Root Diameter MM 3.7 cm AV Cusp Separation MM 2.3 cm DOPPLER AV Peak Velocity 156.7 cm/s AV Peak Gradient 9.8 mmHg MV Peak Velocity 172.5 cm/s MV Peak Gradient 11.9 mmHg MV Mean Velocity 83.3 cm/s MV Mean Gradient 3.5 mmHg MV Velocity Time Integral 51.0 cm MV Area PHT 4.2 cm??? Mitral E Point Velocity 141.0 cm/s Mitral A Point Velocity 93.6 cm/s Mitral E to A Ratio 1.5 MV Deceleration Time 182.7 ms FINDINGS Left Ventricle Left ventricular ejection fraction is estimated at 55-60 %. Left ventricular cavity size normal. Moderate concentric left ventricular hypertrophy. Right Ventricle Mild right ventricular dilatation. Unable to estimate the right ventricular systolic pressure. Right Atrium Right atrium not well visualized. Left Atrium Normal left atrial size. No left atrial thrombus or mass present. Mitral Valve Mitral valve thickened. Mitral annular calcification. Mild mitral regurgitation. Aortic Valve Trileaflet aortic valve. No aortic valve stenosis or regurgitation. Tricuspid Valve Structurally normal tricuspid valve. No tricuspid stenosis, regurgitation or prolapse. Pulmonic Valve Structurally normal pulmonic valve. No pulmonic regurgitation. Pericardium No pericardial or pleural effusion. Aorta Normal size aortic root and proximal ascending aorta. CONCLUSIONS Normal LV size and systolic function with mild to moderate concentric LVH. Mitral annular calcification and aortic valve sclerosis without restriction. Mild mitral and tricuspid regurgitation. No pericardial effusion Previewed by: Dr. Glen Wall MD (Electronically Signed) Final Date: 26 September 2024 07:35
[2024-09-26] MEDS: LOSARTAN 50 MG TAB PO STA (09:35)
[2024-09-26] MEDS: amLODIPine 5 MG TAB PO SCH (09:35)
[2024-09-26] MEDS: hydroCHLOROthiazide 12.5 MG CAP PO SCH (09:35)
--- NOTE | 2024-09-26 11:00 | P.PN ---
Subjective Progress Note Date: 09/26/24 Consult reason: chest pain (hx ascad, accelerated htn) History of present illness: This is a 69-year-old male patient previously seen by Dr. Sumner in 2020 with past medical history of coronary artery disease with previous stenting of the LAD and RCA, hypertension, dyslipidemia, obesity, diabetes. Patient states that he has had some difficulty personally and has not been able to come back into the office. He states he has suffered with major depression and is currently homeless since June and living out of his car. Patient presented to the hospital due to chest pain that was a dull ache in the left lateral chest wall and worse with any movement. He states he also felt cold and clammy. He does admit that he has not been taking his medications consistently. Patient presented with blood pressure 184/78. Blood pressure 128/66, heart rate 66, pulse ox 97% on room air. -EKG: Sinus rhythm with no acute ST changes -Chest x-ray: No acute findings -Laboratory studies: WBC was 11.6 and repeat 9.5, hemoglobin 9.9. Sodium 134, potassium 3.8, creatinine 0.93. Troponin negative x 3. proBNP 162. -Home cardiac medications: Atorvastatin 80 mg at bedtime, losartan 50 mg daily, Lopressor 50 mg twice daily, Nitrostat as needed. -02/04/21: Successful stenting of the mid RCA and proximal to mid LAD. -Echocardiogram performed 02/2022: EF 55 to 60%, no intracardiac mass. 09/26/2024 Patient seen and examined. Reviewed vital signs and blood pressure readings remain elevated. 161/52, heart rate is in the 60s and 70s, pulse ox 97% on room air. Hemoglobin A1c 9.3. Echocardiogram reveals normal LV size and systolic function with mild to moderate concentric LVH. Mitral annular calcification and aortic valve sclerosis without restriction. Mild mitral and tricuspid regurgitation. Carotid ultrasound revealed 50 to 69% stenosis of the bilateral carotid bifurcations. Patient states he met with social work regarding living situation and someone is to come back and talk to him again today. Physical examination: Gen: This is a 69-year-old male in no acute distress VS: reviewed HEENT: Head is atraumatic, normocephalic. Pupils equal, round. Sclerae is anicteric. NECK: Supple. No JVD. Left carotid bruit. LUNGS: Clear to auscultation. No wheezes or rhonchi. No intercostal retractions. HEART: Regular rate and rhythm. No murmur. ABDOMEN: Soft No tenderness. EXTREMITIES: No pedal edema. No calf tenderness. NEUROLOGICAL: Patient is awake, alert and oriented x3. Assessment: Atypical chest pain, acute coronary syndrome ruled out History of coronary artery disease with prior stenting of the LAD and RCA 50 to 69% stenosis of the bilateral carotid arteries Diabetes mellitus type 2, A1c 9.3 Depression Homelessness Hypertension Dyslipidemia Obesity Plan: Continue patient on aspirin 81 mg daily, atorvastatin 80 mg at bedtime, Lopr essor 50 mg twice daily Losartan increased to 100 mg daily Add amlodipine 5 mg twice daily Plan for stress testing as an outpatient No further cardiac workup at this time. Patient is cleared for discharge and may follow-up in the office in 1 to 2 weeks. Nurse practitioner note has been reviewed, I agree with documented findings and plan of care. Patient was seen and examined. Objective - Vital Signs Vital signs: Vital Signs Temp 97.4 F L 09/26/24 07:00 Pulse 60 09/26/24 07:00 Resp 16 09/26/24 07:00 BP 161/52 09/26/24 07:00 Pulse Ox 97 09/26/24 07:00 FiO2 Intake & Output 09/25/24 09/26/24 09/26/24 18:59 06:59 18:59 Intake Total 358 Balance 358 Intake: Oral 358 Other: Voiding Method Toilet # Voids 1 3 - Labs CBC & Chem 7: 09/24/24 21:33 09/24/24 21:33 Labs: Abnormal Lab Results - Last 24 Hours (Table) 09/24/24 09/25/24 09/25/24 Range/Units 21:33 12:38 17:08 POC Glucose (mg/dL) 166 H 173 H (70-110) mg/dL Hemoglobin A1c 9.3 H (<=6.0) % 09/25/24 09/26/24 Range/Units 20:07 05:47 POC Glucose (mg/dL) 178 H 119 H (70-110) mg/dL Hemoglobin A1c (<=6.0) %
[2024-09-26 12:15] LABS: Glucose,Whole Blood 119 mg/dL (70-110)
[2024-09-26 17:22] LABS: Glucose,Whole Blood 91 mg/dL (70-110)
[2024-09-26 20:13] LABS: Glucose,Whole Blood 195 mg/dL (70-110)
--- NOTE | 2024-09-27 02:56 | PN ---
PROGRESS NOTE DATE OF SERVICE: 09/26/2024 CHIEF COMPLAINT: Uncontrolled hypertension and diabetes. HISTORY OF PRESENT ILLNESS: This gentleman has improved. Blood sugars and blood pressure were coming down. PHYSICAL EXAMINATION: CHEST: Clear. CARDIAC: Normal. ABDOMEN: Protuberant, soft and nontender. IMPRESSION: 1. Uncontrolled hypertension. 2. Uncontrolled diabetes. PLAN: Continue efforts to bring his diabetes under better control. Starts to look for discharge location for him. MMODL / IJN: [id number] /
[2024-09-27 06:00] LABS: Glucose,Whole Blood 104 mg/dL (70-110)
[2024-09-27] MEDS: LOSARTAN 50 MG TAB PO SCH (08:25)
[2024-09-27 08:32] LABS: Glucose,Whole Blood 89 mg/dL (70-110)
[2024-09-27 12:08] VITALS: BMI 39.8
[2024-09-27 12:40] LABS: Glucose,Whole Blood 128 mg/dL (70-110)
--- NOTE | 2024-09-27 14:10 | P.PN ---
Subjective Progress Note Date: 09/27/24 Consult reason: chest pain (hx ascad, accelerated htn) History of present illness: This is a 69-year-old male patient previously seen by Dr. Sumner in 2020 with past medical history of coronary artery disease with previous stenting of the LAD and RCA, hypertension, dyslipidemia, obesity, diabetes. Patient states that he has had some difficulty personally and has not been able to come back into the office. He states he has suffered with major depression and is currently homeless since June and living out of his car. Patient presented to the hospital due to chest pain that was a dull ache in the left lateral chest wall and worse with any movement. He states he also felt cold and clammy. He does admit that he has not been taking his medications consistently. Patient presented with blood pressure 184/78. Blood pressure 128/66, heart rate 66, pulse ox 97% on room air. -EKG: Sinus rhythm with no acute ST changes -Chest x-ray: No acute findings -Laboratory studies: WBC was 11.6 and repeat 9.5, hemoglobin 9.9. Sodium 134, potassium 3.8, creatinine 0.93. Troponin negative x 3. proBNP 162. -Home cardiac medications: Atorvastatin 80 mg at bedtime, losartan 50 mg daily, Lopressor 50 mg twice daily, Nitrostat as needed. -02/04/21: Successful stenting of the mid RCA and proximal to mid LAD. -Echocardiogram performed 02/2022: EF 55 to 60%, no intracardiac mass. 09/26/2024 Patient seen and examined. Reviewed vital signs and blood pressure readings remain elevated. 161/52, heart rate is in the 60s and 70s, pulse ox 97% on room air. Hemoglobin A1c 9.3. Echocardiogram reveals normal LV size and systolic function with mild to moderate concentric LVH. Mitral annular calcification and aortic valve sclerosis without restriction. Mild mitral and tricuspid regurgitation. Carotid ultrasound revealed 50 to 69% stenosis of the bilateral carotid bifurcations. Patient states he met with social work regarding living situation and someone is to come back and talk to him again today. 09/27/2024 Patient is seen and examined. Blood pressure readings are improved running around 148/69, heart rate is in the 50s, pulse ox 100% on room air. Apparently discharge planning is in progress. Physical examination: Gen: This is a 69-year-old male in no acute distress VS: reviewed HEENT: Head is atraumatic, normocephalic. Pupils equal, round. Sclerae is anicteric. NECK: Supple. No JVD. Left carotid bruit. LUNGS: Clear to auscultation. No wheezes or rhonchi. No intercostal retractions. HEART: Regular rate and rhythm. No murmur. ABDOMEN: Soft No tenderness. EXTREMITIES: No pedal edema. No calf tenderness. NEUROLOGICAL: Patient is awake, alert and oriented x3. Assessment: Atypical chest pain, acute coronary syndrome ruled out History of coronary artery disease with prior stenting of the LAD and RCA 50 to 69% stenosis of the bilateral carotid arteries Diabetes mellitus type 2, A1c 9.3 Depression Homelessness Hypertension Dyslipidemia Obesity Plan: Continue patient on aspirin 81 mg daily, atorvastatin 80 mg at bedtime, h ydrochlorothiazide 12.5 mg daily, Lopressor 50 mg twice daily, losartan 100 mg daily, amlodipine 5 mg twice daily Plan for stress testing as an outpatient No further cardiac workup at this time. Patient is cleared for discharge and may follow-up in the office in 1 to 2 weeks. Cardiology will sign off this case and follow on an as-needed basis. Please reconsult for any new concerns. Nurse practitioner note has been reviewed, I agree with documented findings and plan of care. Patient was seen and examined. Objective - Vital Signs Vital signs: Vital Signs Temp 97.9 F 09/27/24 06:55 Pulse 56 L 09/27/24 06:55 Resp 16 09/27/24 06:55 BP 148/69 09/27/24 06:55 Pulse Ox 89 L 09/27/24 06:55 FiO2 Intake & Output 09/26/24 09/27/24 09/27/24 18:59 06:59 18:59 Intake Total 898 708 Balance 898 708 Intake: Oral 898 708 Other: Voiding Method Toilet Urinal # Voids 300 1 - Labs CBC & Chem 7: 09/24/24 21:33 09/24/24 21:33 Labs: Abnormal Lab Results - Last 24 Hours (Table) 09/26/24 09/26/24 Range/Units 12:13 20:12 POC Glucose (mg/dL) 119 H 195 H (70-110) mg/dL
[2024-09-27 17:21] LABS: Glucose,Whole Blood 174 mg/dL (70-110)
[2024-09-27 20:03] LABS: Glucose,Whole Blood 151 mg/dL (70-110)
[2024-09-28 05:37] LABS: Glucose,Whole Blood 125 mg/dL (70-110)
[2024-09-28 07:57] LABS: Glucose,Whole Blood 121 mg/dL (70-110)
[2024-09-28 12:15] LABS: Glucose,Whole Blood 127 mg/dL (70-110)
[2024-09-28 17:41] LABS: Glucose,Whole Blood 168 mg/dL (70-110)
[2024-09-28] MEDS: MORPHINE SULFATE 4 MG/ML SYRINGE IV PRN (17:57)
[2024-09-28 20:09] LABS: Glucose,Whole Blood 249 mg/dL (70-110)
--- NOTE | 2024-09-29 04:32 | PN ---
PROGRESS NOTE DATE OF SERVICE: 09/27/2024 CHIEF COMPLAINT: Chest pain, uncontrolled hypertension, and uncontrolled diabetes. HISTORY OF PRESENT ILLNESS: This gentleman is doing much better. Blood pressure is under good control and sugars are coming down. Social Work is working on discharge plan for this patient. MMODL / IJN: [id number] /
--- NOTE | 2024-09-29 05:26 | PN ---
PROGRESS NOTE DATE OF SERVICE: 09/28/2024 CHIEF COMPLAINT: Uncontrolled hypertension, diabetes, and chest pain. HISTORY OF PRESENT ILLNESS: This gentleman is doing well, but he believes that he will be going to [facility] pending approval. PHYSICAL EXAMINATION: VITAL SIGNS: Blood pressure is down to normal. CHEST: Clear. CARDIAC: Normal. IMPRESSION: 1. Chest pain. 2. Coronary artery disease. 3. Congestive heart failure. 4. Uncontrolled hypertension. 5. Uncontrolled diabetes. MMODL / IJN: [id number] /
[2024-09-29 05:52] LABS: Glucose,Whole Blood 149 mg/dL (70-110)
[2024-09-29 11:50] LABS: Glucose,Whole Blood 248 mg/dL (70-110)
--- NOTE | 2024-09-29 13:27 | P.PN ---
Subjective Progress Note Date: 09/29/24 * 69-year-old male patient past medical history of coronary artery disease with previous stenting of the LAD and RCA, hypertension, dyslipidemia, obesity, diabetes. * EKG: Sinus rhythm with no acute ST changes * Chest x-ray: No acute findings * Troponin negative x 3. proBNP 162. * 02/04/21: Successful stenting of the mid RCA and proximal to mid LAD. * Echocardiogram performed 02/2022: EF 55 to 60%, no intracardiac mass. * 09/29/24 : patient seen and evaluated at bedside, patient seen by cardiology and cleared for discharge. Patient waiting for placement waiting for insurance authorization for placement PHYSICAL EXAMINATION: GENERAL: The patient is alert and oriented x3, not in any acute distress. Well developed, well nourished. HEENT: Pupils are round and equally reacting to light. EOMI. No scleral icterus. No conjunctival pallor. Normocephalic, atraumatic. No pharyngeal erythema. No thyromegaly. CARDIOVASCULAR: S1 and S2 present. No murmurs, rubs, or gallops. PULMONARY: Chest is clear to auscultation, no wheezing or crackles. ABDOMEN: Soft, nontender, nondistended, normoactive bowel sounds. No palpable organomegaly. MUSCULOSKELETAL: No joint swelling or deformity. EXTREMITIES: No cyanosis, clubbing, or pedal edema. NEUROLOGICAL: Gross neurological examination did not reveal any focal deficits. SKIN: No rashes. Assessment and plan chest pain coronary artery disease diabetes mellitus hypertension dyslipidemia homelessness * in regards to cardiovascular disease continue current medications including aspirin, amlodipine, Lipitor, losartan * In regards for diabetes mellitus Accu-Cheks ACHS continue NovoLog, Levemir, metformin, Actos * will need outpatient follow-up with cardiology * Objective - Vital Signs Vital signs: Vital Signs Temp 97.5 F L 09/29/24 07:00 Pulse 54 L 09/29/24 07:00 Resp 15 09/29/24 07:00 BP 119/68 09/29/24 07:00 Pulse Ox 97 09/29/24 07:00 FiO2 Intake & Output 09/28/24 09/29/24 09/29/24 18:59 06:59 18:59 Intake Total 472 20 Output Total 700 Balance 472 -680 Intake: IV 20 Invasive Line 1 20 Oral 472 Output: Urine 700 Other: Voiding Method Toilet Toilet Toilet Urinal Urinal Urinal # Voids 3 # Bowel Movements 0 - Labs CBC & Chem 7: 09/24/24 21:33 09/24/24 21:33 Labs: Abnormal Lab Results - Last 24 Hours (Table) 09/28/24 09/28/24 09/28/24 Range/Units 12:13 17:39 20:08 POC Glucose (mg/dL) 127 H 168 H 249 H (70-110) mg/dL 09/29/24 Range/Units 05:50 POC Glucose (mg/dL) 149 H (70-110) mg/dL
[2024-09-29 17:26] LABS: Glucose,Whole Blood 145 mg/dL (70-110)
[2024-09-29 20:36] LABS: Glucose,Whole Blood 249 mg/dL (70-110)
[2024-09-30 06:06] LABS: Glucose,Whole Blood 94 mg/dL (70-110)
[2024-09-30 07:48] LABS: HCT 40.6 % (39.0-53.0); HGB 13.3 gm/dL (13.0-17.5); MCH 27.6 pg (25.0-35.0); MCHC 32.7 g/dL (31.0-37.0); MCV 84.3 fL (80.0-100.0); Mean Platelet Volume 7.3; Platelet Count 341 k/uL (150-450); RBC 4.82 m/uL (4.30-5.90); RDW 15.2 % (11.5-15.5); WBC 13.4 k/uL (3.8-10.6)
[2024-09-30 10:01] LABS: BUN/Creat Ratio 17.83 Ratio (12.00-20.00); Blood Urea Nitrogen 42.8 mg/dL (9.0-27.0); Chloride 102 mmol/L (96-109); Glucose 106 mg/dL (70-110); Potassium 4.9 mmol/L (3.5-5.5); Sodium 136 mmol/L (135-145)
[2024-09-30 10:02] LABS: Calcium 9.1 mg/dL (8.7-10.3); Carbon Dioxide 23.1 mmol/L (21.6-31.8)
--- NOTE | 2024-09-30 11:44 | P.PN ---
Subjective Progress Note Date: 09/30/24 * 69-year-old male patient past medical history of coronary artery disease with previous stenting of the LAD and RCA, hypertension, dyslipidemia, obesity, diabetes. * EKG: Sinus rhythm with no acute ST changes * Chest x-ray: No acute findings * Troponin negative x 3. proBNP 162. * 02/04/21: Successful stenting of the mid RCA and proximal to mid LAD. * Echocardiogram performed 02/2022: EF 55 to 60%, no intracardiac mass. * 09/29/24 : patient seen and evaluated at bedside, patient seen by cardiology and cleared for discharge. Patient waiting for placement waiting for insurance authorization for placement * 09/30: Patient seen and evaluated at bedside, patient remains asymptomatic, plan for patient to be discharged to facility pending urgent authorization PHYSICAL EXAMINATION: GENERAL: The patient is alert and oriented x3, not in any acute distress. Well developed, well nourished. HEENT: Pupils are round and equally reacting to light. EOMI. CARDIOVASCULAR: S1 and S2 present. No murmurs, rubs, or gallops. PULMONARY: Chest is clear to auscultation, no wheezing or crackles. ABDOMEN: Soft, nontender, nondistended, normoactive bowel sounds. No palpable organomegaly. MUSCULOSKELETAL: No joint swelling or deformity. EXTREMITIES: Trace lower extremity edema NEUROLOGICAL: Gross neurological examination did not reveal any focal deficits. SKIN: No rashes. Assessment and plan chest pain coronary artery disease diabetes mellitus hypertension dyslipidemia homelessness * in regards to cardiovascular disease continue current medications including aspirin, amlodipine, Lipitor, losartan * In regards for diabetes mellitus Accu-Cheks ACHS continue NovoLog, Levemir, metformin, Actos * will need outpatient follow-up with cardiology postdischarge Objective - Vital Signs Vital signs: Vital Signs Temp 98.3 F 09/30/24 07:00 Pulse 51 L 09/30/24 07:40 Resp 15 09/30/24 07:40 BP 138/62 09/30/24 07:00 Pulse Ox 98 09/30/24 07:00 FiO2 Intake & Output 09/29/24 09/30/24 09/30/24 18:59 06:59 18:59 Intake Total 118 236 Output Total 1075 675 Balance -957 -841 236 Intake: Oral 118 236 Output: Urine 1075 675 Other: Voiding Method Toilet Toilet Toilet Urinal Urinal Urinal # Voids 2 - Labs CBC & Chem 7: 09/30/24 07:17 09/30/24 07:17 Labs: Abnormal Lab Results - Last 24 Hours (Table) 09/29/24 09/29/24 09/29/24 Range/Units 11:49 17:25 20:35 WBC (3.8-10.6) k/uL BUN (9.0-27.0) mg/dL Creatinine (0.6-1.5) mg/dL Est GFR (CKD-EPI) (>=60) POC Glucose (mg/dL) 248 H 145 H 249 H (70-110) mg/dL 09/30/24 09/30/24 Range/Units 07:17 07:17 WBC 13.4 H (3.8-10.6) k/uL BUN 42.8 H (9.0-27.0) mg/dL Creatinine 2.4 H (0.6-1.5) mg/dL Est GFR (CKD-EPI) 28 L (>=60) POC Glucose (mg/dL) (70-110) mg/dL
[2024-09-30 11:59] LABS: Glucose,Whole Blood 202 mg/dL (70-110)
[2024-09-30 17:23] LABS: Glucose,Whole Blood 96 mg/dL (70-110)
[2024-09-30 20:20] LABS: Glucose,Whole Blood 144 mg/dL (70-110)
[2024-10-01 01:59] VITALS: RESP 16
[2024-10-01 05:52] LABS: Glucose,Whole Blood 154 mg/dL (70-110)
[2024-10-01 12:20] LABS: Glucose,Whole Blood 194 mg/dL (70-110)
[2024-10-01 17:06] VITALS: BP 105/55; PULSE 46; TEMP 98.1
[2024-10-01 17:23] LABS: Glucose,Whole Blood 168 mg/dL (70-110)
--- NOTE | 2024-10-04 04:58 | DS ---
DISCHARGE SUMMARY CHIEF COMPLAINT: Chest pain, uncontrolled hypertension, and uncontrolled diabetes. HISTORY OF PRESENT ILLNESS AND PHYSICAL EXAMINATION: Details of this man's history and physical can be found in the initial workup. LABORATORY STUDIES: While he is in a hospital, he had laboratory studies, details of which can be found in the laboratory section of his chart. COURSE IN THE HOSPITAL: After admission, he was placed on bedrest, started intravenous fluids and blood pressure and blood sugars were brought under control. He had no further chest pain. Balance of his hospitalization was spent in trying to find him a place to go to live after he left the hospital. Apparently, nursing home agreed to take him in this area and he was discharged on the . He will follow up with us in several days. FINAL DIAGNOSIS: 1. Uncontrolled hypertension. 2. Congestive heart failure. 3. Uncontrolled diabetes. 4. General debility and weakness. OPERATIONS: None. CONSULTATIONS: None. He is improved. MMJANIS / RANCHO: [id number] /
--- NOTE | 2024-10-04 07:43 | PN ---
PROGRESS NOTE SKIN LAP BONDER COMPLAINT: Chest pain, heart failure, and diabetes. HISTORY OF PRESENT ILLNESS: This gentleman continues to do fairly well, and we are waiting for a placement. Sugars are down. He has no chest pain. PHYSICAL EXAMINATION: CARDIAC: Exam is normal. CHEST: Clear. ABDOMEN: Soft and nontender. IMPRESSION: 1. Chest pain. 2. Congestive heart failure. 3. Uncontrolled diabetes. PLAN: PT and OT and wait for discharge planning. MMODL / IJN: [id number] /
== END 2024-10-01 18:30 | disposition home or self-care (01) ==
LOC: EC 16:42 → 6NMEDSUR 20:25
PROVIDERS: ADMIT Family Medicine; ATTEND Family Medicine
DX: R07.89 Other chest pain (principal); I11.0 Hypertensive heart disease with heart failure; I50.9 Heart failure, unspecified; E11.65 Type 2 diabetes mellitus with hyperglycemia; I65.23 Occlusion and stenosis of bilateral carotid arteries; I08.3 Combined rheumatic disorders of mitral, aortic and tricuspid valves; I25.10 Atherosclerotic heart disease of native coronary artery without angina pectoris; T50.906A Underdosing of unspecified drugs, medicaments and biological substances, initial encounter; Z91.148 Patient's other noncompliance with medication regimen for other reason; F32.9 Major depressive disorder, single episode, unspecified; E78.5 Hyperlipidemia, unspecified; E66.9 Obesity, unspecified; Z68.39 Body mass index [BMI] 39.0-39.9, adult; Z79.84 Long term (current) use of oral hypoglycemic drugs; Z79.4 Long term (current) use of insulin; Z79.85 Long-term (current) use of injectable non-insulin antidiabetic drugs; Z79.899 Other long term (current) drug therapy; Z91.041 Radiographic dye allergy status; Z59.02 Unsheltered homelessness; Z95.5 Presence of coronary angioplasty implant and graft; Z87.891 Personal history of nicotine dependence
CPT/HCPCS: 96376 ×2; 96366 ×3; 96375; 96365; 99285; 36415; 94640 ×4; 93005; 97530 ×2; 97161; 83880; 80053; 80048 ×2; 83735; 84484 ×2; 85025; 85027; 85610; 85730; 83036; 71046; 93880; G0378 ×8; C8929; J2270 ×2; Q9957; J3475; 93306